=== PATIENT | female | born 1940 | race Caucasian/White ===

== ENCOUNTER 2018-09-14 18:14 | Inpatient (IN) | payer MEDICARE ==
[2018-09-14] MEDS ORDERED: SODIUM CHLORIDE 0.9% 2,000 ML IV STA (19:26)
[2018-09-14] MEDS ORDERED: SODIUM CHLORIDE 0.9% 1,000 ML IV STA (19:27)
--- NOTE | 2018-09-14 19:35 | ED ---
General Adult HPI - General Chief complaint: Skin/Abscess/Foreign Body Stated complaint: rash on arms & legs/cancer patient Time Seen by Provider: 09/14/18 18:47 Source: patient, RN notes reviewed Mode of arrival: wheelchair Limitations: no limitations - History of Present Illness Initial comments: 78-year-old female with a history of lung cancer currently treated with chemo and radiation and type 2 IDDM presents to the emergency department for a chief complaint of rash 2 weeks. Patient states this rash started 2 weeks ago on the left arm after receiving chemo. Patient states since then the rash has continued to spread. Patient states that 2 different oncologists have said it was the chemo or the radiation that may have caused the rash. Patient states she has also seen a regional operations manager last week who did a biopsy of the rash. She does not have the results of the biopsy yet but does have an appointment in 3 days. Patient states she has otherwise been feeling normal. Patient states that over the past few days the rash has begun to spread and is now on bilateral arms and legs. Patient states the rash is not pruritic and denies it being painful. Patient denies any recent travel. Patient denies any fevers or chills. Patient has no other complaints at this time including shortness of breath, chest pain, abdominal pain, nausea or vomiting, headache, or visual changes. - Related Data Home Medications Medication Instructions Recorded Confirmed [id number] 1 tab PO DAILY PRN 09/14/18 09/14/18 [Excedrin] INSULIN LISPRO (HumaLOG) [HumaLOG] 36 unit SQ DAILY 09/14/18 09/14/18 Insulin Glargine [Lantus] 70 unit SQ BID 09/14/18 09/14/18 Mirabegron [Myrbetriq] 50 mg PO DAILY 09/14/18 09/14/18 Prochlorperazine [Compazine] 10 mg PO Q6H PRN 09/14/18 09/14/18 Vortioxetine Hydrobromide 20 mg PO DAILY 09/14/18 09/14/18 [Trintellix] buPROPion HCL [Wellbutrin SR] 200 mg PO BID 09/14/18 09/14/18 Allergies Allergy/AdvReac Type Severity Reaction Status Date / Time latex Allergy Unknown Verified 09/14/18 19:56 Review of Systems ROS Statement: Those systems with pertinent positive or pertinent negative responses have been documented in the HPI. ROS Other: All systems not noted in ROS Statement are negative. Past Medical History Past Medical History: Asthma, Cancer, Diabetes Mellitus Additional Past Medical History / Comment(s): lung cancer History of Any Multi-Drug Resistant Organisms: None Reported Past Surgical History: Hysterectomy Past Psychological History: Depression Smoking Status: Former smoker Past Alcohol Use History: None Reported Past Drug Use History: None Reported General Exam Limitations: no limitations General appearance: alert, in no apparent distress Head exam: Present: atraumatic, normocephalic, normal inspection Eye exam: Present: normal appearance, PERRL, EOMI. Absent: scleral icterus, conjunctival injection, periorbital swelling ENT exam: Present: normal exam, normal oropharynx, mucous membranes moist Neck exam: Present: normal inspection, full ROM. Absent: tenderness, meningismus, lymphadenopathy Respiratory exam: Present: normal lung sounds bilaterally. Absent: respiratory distress, wheezes, rales, rhonchi, stridor Cardiovascular Exam: Present: normal rhythm, tachycardia, normal heart sounds. Absent: systolic murmur, diastolic murmur, rubs, gallop, clicks Neurological exam: Present: alert, oriented X3, CN II-XII intact Psychiatric exam: Present: normal affect, normal mood Skin exam: Present: rash (Patient has erythematous nonblanching rash on the bilateral arms and legs consistent with possible vasculitis.) Course Vital Signs 09/14/18 09/14/18 09/14/18 18:20 19:53 20:47 Temperature 98.6 F Pulse Rate 117 H 119 H 126 H Respiratory 18 18 20 Rate Blood Pressure 112/49 89/68 82/63 O2 Sat by Pulse 95 97 95 Oximetry - Reevaluation(s) Reevaluation #1: 09/14/18 18:50: Discussed with patient and offered blood work for rash including platelet count which she refuses at this time. Dr. Lloyd also saw the patient at this time who recommended steroids as patient does not want blood work because she is getting blood work done tomorrow at chemo Reevaluation #2: 09/14/18 19:15 on recheck of vitals before discharge patient's vitals have not stabilized and blood pressure is 96/63 and heart rate is 123. Recommended. Take workup at this point. Patient initially refused and stated she would like to think about it. Patient eventually agreed to septic workup which was initiated when patient agreed at about 1930. EKG Findings - EKG Comments: EKG Findings:: Ventricular rate 121, KS interval 194, QRS duration 96, sinus tachycardia, Dr Mir also evaluated EKG Medical Decision Making - Medical Decision Making 78-year-old female with a history of lung cancer currently being treated with chemo and radiation presents to the emergency department for a chief complaint of rash 2 weeks. Patient states this started after chemo and has worsened and spread. Rash is erythematous and nonblanching on bilateral arms and legs. Rash is consistent with vasculitis. She initially refused blood work and wanted to leave the emergency department as she was supposed to be having blood work outpatient tomorrow. However throughout patient's stay patient was becoming increasingly hypotensive and tachycardic. Therefore a septic workup was recommended and eventually patient did agree. Patient was given a liter of fluids. CBC showed a white count of 3.6 which is likely chronic due to patient' s chemotherapy. Platelets 224. CMP was unremarkable. Chest x-ray did not show any evidence of infection but did show patient's known lung mass. Patient refused to give a urine sample in the emergency department. She could not urinate and refused to have catheterization done. Therefore patient will be started on Rocephin empirically. She will be admitted to the hospital for further evaluation and monitoring. Sed rate was ordered and patient was given prednisone to cover for a vasculitis. Before admission patient's blood pressure did improve somewhat and she is currently stable. Discussed case with Dr. lloyd. - Lab Data Result diagrams: 09/14/18 19:50 09/14/18 19:50 Lab Results 09/14/18 09/14/18 09/14/18 Range/Units 19:50 19:50 19:50 WBC 3.6 L (3.8-10.6) k/uL RBC 4.25 (3.80-5.40) m/uL Hgb 12.8 (11.4-16.0) gm/dL Hct 37.6 (34.0-46.0) % MCV 88.4 (80.0-100.0) fL MCH 30.0 (25.0-35.0) pg MCHC 34.0 (31.0-37.0) g/dL RDW 19.0 H (11.5-15.5) % Plt Count 224 (150-450) k/uL Neutrophils % 63 % Lymphocytes % 29 % Monocytes % 3 % Eosinophils % 1 % Basophils % 1 % Neutrophils # 2.3 (1.3-7.7) k/uL Lymphocytes # 1.1 (1.0-4.8) k/uL Monocytes # 0.1 (0-1.0) k/uL Eosinophils # 0.1 (0-0.7) k/uL Basophils # 0.0 (0-0.2) k/uL Anisocytosis Slight PT (9.0-12.0) sec INR (<1.2) APTT (22.0-30.0) sec Sodium 137 (137-145) mmol/L Potassium 4.8 (3.5-5.1) mmol/L Chloride 104 (98-107) mmol/L Carbon Dioxide 25 (22-30) mmol/L Anion Gap 8 mmol/L BUN 39 H (7-17) mg/dL Creatinine 0.76 (0.52-1.04) mg/dL Est GFR (CKD-EPI)AfAm 89 (>60 ml/min/1.73 sqM) Est GFR (CKD-EPI)NonAf 77 (>60 ml/min/1.73 sqM) Glucose 181 H (74-99) mg/dL Plasma Lactic Acid Zane 1.6 (0.7-2.0) mmol/L Calcium 10.4 H (8.4-10.2) mg/dL Total Bilirubin 0.7 (0.2-1.3) mg/dL AST 25 (14-36) U/L ALT 29 (9-52) U/L Alkaline Phosphatase 43 (38-126) U/L Total Protein 6.6 (6.3-8.2) g/dL Albumin 3.7 (3.5-5.0) g/dL 09/14/18 Range/Units 19:50 WBC (3.8-10.6) k/uL RBC (3.80-5.40) m/uL Hgb (11.4-16.0) gm/dL Hct (34.0-46.0) % MCV (80.0-100.0) fL MCH (25.0-35.0) pg MCHC (31.0-37.0) g/dL RDW (11.5-15.5) % Plt Count (150-450) k/uL Neutrophils % % Lymphocytes % % Monocytes % % Eosinophils % % Basophils % % Neutrophils # (1.3-7.7) k/uL Lymphocytes # (1.0-4.8) k/uL Monocytes # (0-1.0) k/uL Eosinophils # (0-0.7) k/uL Basophils # (0-0.2) k/uL Anisocytosis PT 9.8 (9.0-12.0) sec INR 1.0 (<1.2) APTT 18.6 L (22.0-30.0) sec Sodium (137-145) mmol/L Potassium (3.5-5.1) mmol/L Chloride (98-107) mmol/L Carbon Dioxide (22-30) mmol/L Anion Gap mmol/L BUN (7-17) mg/dL Creatinine (0.52-1.04) mg/dL Est GFR (CKD-EPI)AfAm (>60 ml/min/1.73 sqM) Est GFR (CKD-EPI)NonAf (>60 ml/min/1.73 sqM) Glucose (74-99) mg/dL Plasma Lactic Acid Zane (0.7-2.0) mmol/L Calcium (8.4-10.2) mg/dL Total Bilirubin (0.2-1.3) mg/dL AST (14-36) U/L ALT (9-52) U/L Alkaline Phosphatase (38-126) U/L Total Protein (6.3-8.2) g/dL Albumin (3.5-5.0) g/dL Disposition Clinical Impression: Hypotension, Tachycardia, Rash Disposition: ADMITTED IP TO THIS HOSP Referrals: Jose Balderas MD [Primary Care Provider] - 1-2 days
[2018-09-14 20:06] LABS: Anisocytosis Slight; Basophils % (A) 1 %; Eosinophils # (A) 0.1 k/uL (0-0.7); Eosinophils % (A) 1 %; HCT 37.6 % (34.0-46.0); HGB 12.8 gm/dL (11.4-16.0); Lymphocytes # (A) 1.1 k/uL (1.0-4.8); Lymphocytes % (A) 29 %; MCV 88.4 fL (80.0-100.0); Mean Platelet Volume 7.4; Monocytes # (A) 0.1 k/uL (0-1.0); Monocytes % (A) 3 %; Neutrophils # (A) 2.3 k/uL (1.3-7.7); Neutrophils % (A) 63 %; Platelet Count 224 k/uL (150-450); RBC 4.25 m/uL (3.80-5.40); WBC 3.6 k/uL (3.8-10.6)
[2018-09-14 20:22] LABS: Albumin 3.7 g/dL (3.5-5.0); Calcium 10.4 mg/dL (8.4-10.2); Potassium 4.8 mmol/L (3.5-5.1); Prothrombin Time 9.8 sec (9.0-12.0); Total Bilirubin 0.7 mg/dL (0.2-1.3); Total Protein 6.6 g/dL (6.3-8.2)
[2018-09-14 20:52] LABS: Partial Thromboplastin Time 18.6 sec (22.0-30.0)
--- NOTE | 2018-09-14 21:09 | XR ---
EXAMINATION: XR chest 2V DATE AND TIME: 09/14/2018 8:09 PM CLINICAL INDICATION: Fever TECHNIQUE: PA and lateral COMPARISON: None. FINDINGS: There is a 5 cm right perihilar soft tissue mass suspicious for bronchogenic carcinoma. No evidence of pulmonary edema or definite pneumonia on these views. Pleural spaces are negative. Mildly enlarged cardiac silhouette noted. No definite acute bone or soft tissue findings. IMPRESSION: 5 CM RIGHT PERIHILAR SOFT TISSUE MASS CONCERNING FOR BRONCHOGENIC CARCINOMA; WOULD ADVISE CT CHEST W CONTRAST TO FURTHER CHARACTERIZE. The abnormal results were communicated with ordering provider.
[2018-09-14] MEDS ORDERED: NALOXONE 0.4 MG/ML 1 ML VIAL IV PRN (21:34)
[2018-09-14] MEDS ORDERED: predniSONE 20 MG TAB PO STA (21:38)
[2018-09-14] MEDS: SODIUM CHLORIDE 0.9% 1,000 ML IV SCH (22:09)
--- NOTE | 2018-09-15 00:44 | P.HPIM ---
History of Present Illness H&P Date: 09/14/18 Chief Complaint: Diffuse erythema rash 78-year-old female with history of lung cancer currently on chemo and radiation therapy. Patient noticed over the past 2 weeks and interruption of erythematous rash over her upper left extremity however with time started to become more diffuse she seek medical attention with both the radiologist and oncologist who referred her to dermatology who performed a skin biopsy awaiting results. H and denies any tenderness or pruritus over this rash however she grew concerned as over the past couple days it became more diffuse involving almost all over her body mainly over the upper and lower extremities. Denies any fevers or chills denies any nausea vomiting denies any pain denies any GI bleeding denies any similar rash in the past she reports that she has been on the same chemotherapy for the past 8 weeks, however recently Compazine was added. While patient in the ED she became hypotensive and tachycardic for which she was admitted under observation for further monitoring and supportive care Review of Systems Pertinent positives as noted in HPI. All other systems were reviewed and are negative Past Medical History Past Medical History: Asthma, Cancer, Diabetes Mellitus Additional Past Medical History / Comment(s): lung cancer History of Any Multi-Drug Resistant Organisms: None Reported Past Surgical History: Hysterectomy Past Psychological History: Depression Smoking Status: Former smoker Past Alcohol Use History: None Reported Past Drug Use History: None Reported Medications and Allergies Home Medications Medication Instructions Recorded Confirmed Type [id number] 1 tab PO DAILY PRN 09/14/18 09/14/18 History [Excedrin] INSULIN LISPRO (HumaLOG) [HumaLOG] 36 unit SQ DAILY 09/14/18 09/14/18 History Insulin Glargine [Lantus] 70 unit SQ BID 09/14/18 09/14/18 History Mirabegron [Myrbetriq] 50 mg PO DAILY 09/14/18 09/14/18 History Prochlorperazine [Compazine] 10 mg PO Q6H PRN 09/14/18 09/14/18 History Vortioxetine Hydrobromide 20 mg PO DAILY 09/14/18 09/14/18 History [Trintellix] buPROPion HCL [Wellbutrin SR] 200 mg PO BID 09/14/18 09/14/18 History Allergies Allergy/AdvReac Type Severity Reaction Status Date / Time latex Allergy Unknown Verified 09/14/18 19:56 Physical Exam Vitals: Vital Signs Temp Pulse Resp BP Pulse Ox 09/14/18 22:52 98.3 F 121 H 18 125/64 95 09/14/18 21:37 113 H 18 118/73 95 09/14/18 20:47 126 H 20 82/63 95 09/14/18 19:53 119 H 18 89/68 97 09/14/18 18:20 98.6 F 117 H 18 112/49 95 Intake and Output 09/14/18 09/14/18 09/14/18 06:59 14:59 22:59 Other: Weight 100.698 kg Constitutional: No acute distress, conversant, pleasant, well developed Eyes: Anicteric sclerae, moist conjunctiva, no lid-lag Pupils equal round reactive to light ENMT: NC/AT Oropharynx clear, no erythema, exudates Neck: Supple, FROM, no masses, or JVD No carotid bruits No thyromegaly Lungs: Clear to auscultation Clear to percussion Normal respiratory effort, no accessory muscle use Cardiovascular: Heart regular in rate and rhythm, No murmurs, gallops, or rubs No peripheral edema Abdominal: Soft Nontender, no guarding, rebound or rigidity Abdomen moving with respiration Normoactive bowel sounds No hepatomegaly, No splenomegaly No palpable mass No abdominal wall hernia noted Skin: Diffuse petechial rash over upper and lower extremities with areas of erythematous macule over the hands nontender to palpation Normal temperature, tone, texture, turgor No induration No subcutaneous nodules No ulcers Extremities: No digital cyanosis No clubbing Pedal pulses intact and symmetrical Radial pulses intact and symmetrical No calf tenderness Psychiatric: Alert and oriented to person, place and time Appropriate affect fair judgment Neuro Muscles Strength 5/5 in all 4 extremities Sensation to light touch grossly present throughout Cranial nerves II-XII grossly intact No focal sensory deficits Lymphatics: no palpable cervical or supraclavicular , or inguinal lymph nodes Results CBC & Chem 7: 09/14/18 19:50 09/14/18 19:50 Labs: Abnormal Lab Results - Last 24 Hours (Table) 09/14/18 09/14/18 09/14/18 Range/Units 19:50 19:50 19:50 WBC 3.6 L (3.8-10.6) k/uL RDW 19.0 H (11.5-15.5) % ESR (0-20) mm/hr APTT 18.6 L (22.0-30.0) sec BUN 39 H (7-17) mg/dL Glucose 181 H (74-99) mg/dL Calcium 10.4 H (8.4-10.2) mg/dL 09/14/18 Range/Units 22:01 WBC (3.8-10.6) k/uL RDW (11.5-15.5) % ESR 25 H (0-20) mm/hr APTT (22.0-30.0) sec BUN (7-17) mg/dL Glucose (74-99) mg/dL Calcium (8.4-10.2) mg/dL Assessment and Plan Assessment: 78 year old female with history of lung cancer on chemo and radiation therapy , admitted under observation with anticipated length of stay <48 hours due to hypotension and tachycardia. patient presented due to diffuse rash over her upper and lower extremities of 2 weeks duration patient had biopsy performed as OP , and results expected in few days Plan: Diffuse upper and lower extremity rash secondary to Erythema multiforme versus vasculitis Symptomatic control Patient received steroids in the ER Patient had biopsy performed outpatient awaiting results Hypotension tachycardia, patient with history of hypertension Asymptomatic IV fluid hydration Monitor vital signs Hypercalcemia mild asymptomatic Continue to monitor most likely this is secondary to elevated PTH from lung cancer Diabetes mellitus continue with insulin DVT prophylaxis Lovenox Surrogate decision-maker: *Patient niece Winifred CODE STATUS: Full code Discussed with: Patient, ER, RN Anticipated discharge: <[address]: Home A total of 60 minutes was spent on the care of this complex patient more than 50% of the time was spent in counseling and care coordination.
[2018-09-15 03:00] VITALS: BMI 34.7
[2018-09-15 07:04] LABS: Glucose,Whole Blood 247 mg/dL (75-99)
[2018-09-15] MEDS: INSULIN ASPART 100 UNIT/ML 1 ML 10 ML VIAL SQ SCH ×4 (08:11→21:03)
[2018-09-15] MEDS: buPROPion SR 100 MG TABLET.ER PO SCH ×2 (10:48→21:03)
[2018-09-15] MEDS: INSULIN DETEMIR 100 UNIT/ML 10 ML VIAL SQ SCH ×3 (10:49→21:03)
[2018-09-15 11:36] LABS: Glucose,Whole Blood 307 mg/dL (75-99)
[2018-09-15] MEDS: Mirabegron [Myrbetriq] 50 MG PO SCH (11:42)
[2018-09-15] MEDS: SODIUM CHLORIDE 0.9% 1,000 ML IV SCH ×3 (12:45→17:55)
--- NOTE | 2018-09-15 13:24 | P.PN ---
Subjective Progress Note Date: 09/15/18 Principal diagnosis: Rash patient was seen and examined. No acute events overnight. Patient reports no changes in her rash. She denies any chest pain, dizziness, palpitations, shortness of breath. She did see a stretch machine operator in for depression last week for a biopsy of this rash. She denies any fever or chills. She gets her oncological care [place] [facility]. She has no dysuria. She has no other complaints this morning. Objective - Vital Signs Vital signs: Vital Signs Temp 97.9 F 09/15/18 12:07 Pulse 111 H 09/15/18 12:24 Resp 14 09/15/18 12:24 BP 104/67 09/15/18 12:07 Pulse Ox 97 09/15/18 12:07 Intake & Output 09/14/18 09/15/18 09/15/18 18:59 06:59 18:59 Intake Total 840 Output Total 900 Balance 840 -900 Weight 100.698 kg 100.698 kg Intake: Intake, IV Titration 600 Amount Sodium Chloride 0.9% 1, 600 000 ml @ 140 mls/hr IV . Q7H9M [facility] Rx#:[id number] Oral 240 Output: Urine 900 Other: Voiding Method Toilet - Exam General: [non toxic], [no distress], [appears at stated age] Derm: [warm], [dry] Head: [atraumatic], [normocephalic], [symmetric] Eyes: [EOMI], [no lid lag], [anicteric sclera] Mouth: [no lip lesion], [mucus membranes moist] Cardiovascular: [S1S2 reg], [no murmur], [positive posterior tibial pulse bilateral], Lungs: [CTA bilateral], [no rhonchi, no rales] , [no accessory muscle use] Abdominal: [soft], [ nontender to palpation], [no guarding], [no appreciable organomegaly] Ext: [no gross muscle atrophy], [no edema], [petechial rash over the bilateral upper extremities, lower extremities (though less) and macules over the bilateral hands] Neuro: [no focal neuro deficits] Psych: [Alert], [oriented], [appropriate affect] - Labs CBC & Chem 7: 09/14/18 19:50 09/14/18 19:50 Labs: Abnormal Lab Results - Last 24 Hours (Table) 09/14/18 09/14/18 09/14/18 Range/Units 19:50 19:50 19:50 WBC 3.6 L (3.8-10.6) k/uL RDW 19.0 H (11.5-15.5) % ESR (0-20) mm/hr APTT 18.6 L (22.0-30.0) sec BUN 39 H (7-17) mg/dL Glucose 181 H (74-99) mg/dL POC Glucose (mg/dL) (75-99) mg/dL Calcium 10.4 H (8.4-10.2) mg/dL 09/14/18 09/15/18 09/15/18 Range/Units 22:01 07:02 11:35 WBC (3.8-10.6) k/uL RDW (11.5-15.5) % ESR 25 H (0-20) mm/hr APTT (22.0-30.0) sec BUN (7-17) mg/dL Glucose (74-99) mg/dL POC Glucose (mg/dL) 247 H 307 H (75-99) mg/dL Calcium (8.4-10.2) mg/dL Assessment and Plan Assessment: Assessment and Plan 1. Rash: Erythema multiforme vs. vasculitis? Punch Bx done at [facility] dermatology clinic in [facility] last week. Patient is leukopenic (WBC 3.6) and remains afebrile. ESR 25 elevated. Will attempt to call [facility] today for pathology results (likely will not be back until next week). Local skin care. 2. Hypotension with tachycardia: Possibly due to dehydration? 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 CXR shows known bronchogenic CA. No source of infection so will hold off antibiotics. Continue NS at 140 cc/h. FU UA, UCx, BCx, Orthostatic vitals. 3. Prerenal azotemia: BUN 39 C within normal limits. Likely due to dehydration. Continue NS at 140 cc/h. Avoid nephrotoxins. Encourage PO hydration. Daily BMP. 4. Hypercalcemia: Mild, Ca 10.4. Likely 2/2 bronchogenic CA (PTHrp). Asymptomatic. Will continue to monitor. 5. Lung CA: Follows up at [facility]. Has 4 radiation and 1 chemotherapy session left per patient. FU outPT. 6. DM: POC glucose 307. Continue Levemir 70 units BID. ISS. Accuchecks. Hypoglycemic protocol. Low carbohydrate diet. 7. Depression: Continue Vortioxetine 20 mg PO QD, Bupropion 200 mg PO BID. 8. DVT/GI Prophylaxis: Lovenox 40 mg SUBCUT QD. Protonix 40 mg PO QD. Rashe is unchanged. Patient continues to be hypotensive and tachycardic without a source of infection. We are continuing to hydrate her with IV fluids. Will obtain orthostats, follow cultures.
[2018-09-15 14:29] LABS: Anisocytosis Moderate; Basophils % (A) 0 %; Eosinophils % (A) 0 %; Lymphocytes # (A) 0.7 k/uL (1.0-4.8); Lymphocytes % (A) 19 %; MCH 29.9 pg (25.0-35.0); MCHC 32.4 g/dL (31.0-37.0); MCV 92.3 fL (80.0-100.0); Macrocytosis Slight; Mean Platelet Volume 7.1; Monocytes # (A) 0.1 k/uL (0-1.0); Monocytes % (A) 3 %; Neutrophils # (A) 2.9 k/uL (1.3-7.7); Neutrophils % (A) 76 %; Platelet Count 207 k/uL (150-450); RBC 3.69 m/uL (3.80-5.40); WBC 3.8 k/uL (3.8-10.6)
[2018-09-15 14:34] LABS: Anion Gap 7 mmol/L; Blood Urea Nitrogen 25 mg/dL (7-17); Calcium 9.4 mg/dL (8.4-10.2); Carbon Dioxide 25 mmol/L (22-30); Chloride 105 mmol/L (98-107); Glucose 308 mg/dL (74-99); Potassium 4.8 mmol/L (3.5-5.1); Sodium 137 mmol/L (137-145)
[2018-09-15] MEDS ORDERED: VANCOMYCIN IV PER PHARMACY 1 EACH MISC MISCELLANE PRN (15:27)
[2018-09-15] MEDS ORDERED: VANCOMYCIN 1,750 MG in SODIUM CHLORIDE 0.9% 500 ML 500 ML IVPB ONE (16:00)
[2018-09-15] MEDS ORDERED: VANCOMYCIN 1,500 MG in SODIUM CHLORIDE 0.9% 250 ML IVPB ONE (16:00)
[2018-09-15] MEDS: CEFEPIME 2 GM in SODIUM CHLORIDE 0.9% 50 ML IVPB SCH ×2 (16:10→23:33)
[2018-09-15 16:47] LABS: Glucose,Whole Blood 191 mg/dL (75-99)
[2018-09-15 17:49] LABS: Appearance,Urine Clear (Clear); Bilirubin,Urine Negative (Negative); Blood,Urine Negative (Negative); Color,Urine Yellow; Glucose,Urine (UA) 4+ (Negative); Ketones,Urine Negative (Negative); Leukocyte Esterase,Urine Negative (Negative); Nitrite,Urine Negative (Negative); Protein,Urine Negative (Negative); Specific Gravity,Urine 1.025 (1.001-1.035); Urobilinogen,Urine <2.0 mg/dL (<2.0)
[2018-09-15 20:51] LABS: Glucose,Whole Blood 243 mg/dL (75-99)
--- NOTE | 2018-09-15 23:10 | P.CONS ---
History of Present Illness - Reason for Consult Consult date: 09/15/18 Positive blood culture/infection Requesting physician: Raúl Boo - Chief Complaint Generalized rash 2 weeks - History of Present Illness Patient is a 78 year female with a past medical history significant for bronchogenic carcinoma for which the patient currently on chemo and radiation therapy for the last 7 weeks patient said that over the last 2 weeks she has developed a rash initially on her upper arm, however subsequently developing a rash on the lower extremity as well as trunk the patient complains the rash to be itching mild to moderate in intensity no significant surrounding swelling or redness except on the hand with the patient has been scratching patient denies having any lesion in the mouth and no difficulty currently breathing or swallowing patient has been sent to dermatology with the patient did have a biopsy done however results are pending, besides the chemo the only other medication due to the patient has been Compazine for nausea and Prilosec for reflux with worsening of rash the patient represented to the [facility] ER with the patient has been evaluated with the physician she was noticed to be hypotensive with a blood pressure in 80s systolic subsequently the patient was admitted hospital for stabilization she did have blood cultures obtained one of them becoming be positive with gram-positive cocci that prompted his infectious disease consultation, the patient is currently afebrile the patient denies significant URI symptoms denies having any chest pain or shortness of breath she did have very minimal cough and not bringing up any sputum the patient denies having abdominal pain no nausea no vomiting and no diarrhea Review of Systems CONSTITUTIONAL: Positive for weakness. Denies high-grade Fever EYES: No complaint. ENT:No complaint. RESPIRATORY: Occasional cough. CARDIOVASCULAR: No complaint. GENITOURINARY: No complaint. GASTROINTESTINAL: No complaint. MUSCULOSKELETAL: No complaint. INTEGUMENTARY: As per HPI PSYCHOLOGICAL: No complaint. ENDOCRINE: No complaint. NEUROLOGIC: No complaint. Past Medical History Past Medical History: Asthma, Cancer, Diabetes Mellitus Additional Past Medical History / Comment(s): lung cancer History of Any Multi-Drug Resistant Organisms: None Reported Past Surgical History: Hysterectomy Past Psychological History: Depression Smoking Status: Former smoker Past Alcohol Use History: None Reported Past Drug Use History: None Reported - Past Family History Mother Family Medical History: Hypertension Medications and Allergies Home Medications Medication Instructions Recorded Confirmed Type [id number] 1 tab PO DAILY PRN 10/23/18 10/23/18 History [Excedrin] INSULIN LISPRO (HumaLOG) [HumaLOG] 36 unit SQ DAILY 09/14/18 09/14/18 History Insulin Glargine [Lantus] 70 unit SQ BID 09/14/18 09/14/18 History Mirabegron [Myrbetriq] 50 mg PO DAILY 09/14/18 09/14/18 History Prochlorperazine [Compazine] 10 mg PO Q6H PRN 09/14/18 09/14/18 History Vortioxetine Hydrobromide 20 mg PO DAILY 09/14/18 09/14/18 History [Trintellix] buPROPion HCL [Wellbutrin SR] 200 mg PO BID 09/14/18 09/14/18 History Allergies Allergy/AdvReac Type Severity Reaction Status Date / Time latex Allergy Unknown Verified 09/14/18 19:56 Physical Exam Vitals: Vital Signs Temp Pulse Pulse Resp BP BP Pulse Ox 09/15/18 15:30 114 H 09/15/18 15:10 122 H 09/15/18 15:05 114 H 09/15/18 15:00 109 H 09/15/18 12:24 111 H 14 09/15/18 12:07 97.9 F 111 H 14 104/67 97 09/15/18 08:00 113 H 09/15/18 05:47 97.5 F L 113 H 16 121/61 95 09/14/18 23:20 113 H 17 09/14/18 23:00 98.9 F 120 H 17 81/59 97 09/14/18 22:52 98.3 F 121 H 18 125/64 95 09/14/18 21:37 113 H 18 118/73 95 09/14/18 20:47 126 H 20 82/63 95 09/14/18 19:53 119 H 18 89/68 97 09/14/18 18:20 98.6 F 117 H 18 112/49 95 Intake and Output 09/15/18 09/15/18 09/15/18 06:59 14:59 22:59 Intake Total 840 1120 Output Total 900 Balance 840 220 Intake: Intake, IV Titration 600 1120 Amount Sodium Chloride 0.9% 1, 600 1120 000 ml @ 140 mls/hr IV . Q7H9M [facility] Rx#:[id number] Oral 240 Output: Urine 900 Other: Voiding Method Toilet Weight 100.698 kg GENERAL DESCRIPTION: Elderly female up in bed, no distress. No tachypnea or accessory muscle of respiration use. HEENT: Shows Pallor , no scleral icterus. Oral mucous membrane is dry. No pharyngeal erythema or thrush NECK: Trachea central, no thyromegaly. LUNGS: Unlabored breathing. Decreased intensity of breath sounds. No wheeze or crackle. HEART: S1, S2, regular rate and rhythm. No loud murmur ABDOMEN: Soft, no tenderness , guarding or rigidity, no organomegaly EXTREMITIES: No edema of feet. SKIN: Generalized maculopapular rash, no masses palpable. NEUROLOGICAL: The patient is awake, alert, oriented x3, mood and affect normal. Results CBC & Chem 7: 09/15/18 13:57 09/15/18 13:57 Labs: Abnormal Lab Results - Last 24 Hours (Table) 09/14/18 09/14/18 09/14/18 Range/Units 19:50 19:50 19:50 WBC 3.6 L (3.8-10.6) k/uL RBC (3.80-5.40) m/uL Hgb (11.4-16.0) gm/dL RDW 19.0 H (11.5-15.5) % Lymphocytes # (1.0-4.8) k/uL ESR (0-20) mm/hr APTT 18.6 L (22.0-30.0) sec BUN 39 H (7-17) mg/dL Glucose 181 H (74-99) mg/dL POC Glucose (mg/dL) (75-99) mg/dL Calcium 10.4 H (8.4-10.2) mg/dL 09/14/18 09/15/18 09/15/18 Range/Units 22:01 07:02 11:35 WBC (3.8-10.6) k/uL RBC (3.80-5.40) m/uL Hgb (11.4-16.0) gm/dL RDW (11.5-15.5) % Lymphocytes # (1.0-4.8) k/uL ESR 25 H (0-20) mm/hr APTT (22.0-30.0) sec BUN (7-17) mg/dL Glucose (74-99) mg/dL POC Glucose (mg/dL) 247 H 307 H (75-99) mg/dL Calcium (8.4-10.2) mg/dL 09/15/18 09/15/18 Range/Units 13:57 13:57 WBC (3.8-10.6) k/uL RBC 3.69 L (3.80-5.40) m/uL Hgb 11.0 L (11.4-16.0) gm/dL RDW 20.0 H (11.5-15.5) % Lymphocytes # 0.7 L (1.0-4.8) k/uL ESR (0-20) mm/hr APTT (22.0-30.0) sec BUN 25 H (7-17) mg/dL Glucose 308 H (74-99) mg/dL POC Glucose (mg/dL) (75-99) mg/dL Calcium (8.4-10.2) mg/dL Microbiology - Last 24 Hours (Table) 09/14/18 22:01 Blood Culture Gram Stain - Preliminary Blood 09/14/18 22:01 Blood Culture - Final Blood Assessment and Plan (1) Gram-positive cocci bacteremia Current Visit: Yes Status: Acute Code(s): R78.81 - BACTEREMIA SNOMED Code( s): 389809620027 (2) Rash Current Visit: Yes Status: Acute Code(s): R21 - RASH AND OTHER NONSPECIFIC SKIN ERUPTION SNOMED Code(s): 655614838 Plan: 1- patient with generalized maculopapular rash more likely drug effect with the offending showed questionable chemo versus Compazine and the Prilosec that has been new to the patient patient is status post biopsy of them and to try to obtain the results from [facility] dermatology, currently recommend local and symptomatic treatment only 2- patient with gram-positive bacteremia source questionable pulmonary however the patient is not behaving as pneumonia could be more likely a skin contamination at the time of obtaining these blood culture 3-blood culture has been dictated to document clearance of bacteremia and to rule out contamination 4- vancomycin pharmacy to dose target trough of 15 on watching her kidney function and Vanco trough closely all waiting for the final ID on this gram- positive pathogen He will follow on her clinical condition and culture to further adjust medication if needed Time with Patient: Greater than 30
[2018-09-16] MEDS: VANCOMYCIN 1,750 MG in SODIUM CHLORIDE 0.9% 500 ML 500 ML IVPB SCH ×2 (00:45→14:26)
[2018-09-16] MEDS: SODIUM CHLORIDE 0.9% 1,000 ML IV SCH ×4 (04:00→23:30)
[2018-09-16 06:51] LABS: Glucose,Whole Blood 71 mg/dL (75-99)
[2018-09-16] MEDS: INSULIN ASPART 100 UNIT/ML 1 ML 10 ML VIAL SQ SCH ×4 (07:20→21:11)
[2018-09-16] MEDS: PANTOPRAZOLE 40 MG TABLET PO SCH (08:11)
[2018-09-16] MEDS: CEFEPIME 2 GM in SODIUM CHLORIDE 0.9% 50 ML IVPB SCH ×2 (08:12→17:32)
[2018-09-16] MEDS: buPROPion SR 100 MG TABLET.ER PO SCH ×2 (08:13→21:12)
[2018-09-16] MEDS: ENOXAPARIN 40 MG/0.4 ML SYRINGE SQ SCH (08:14)
[2018-09-16] MEDS: INSULIN DETEMIR 100 UNIT/ML 10 ML VIAL SQ SCH ×2 (08:16→21:24)
[2018-09-16] MEDS: Mirabegron [Myrbetriq] 50 MG PO SCH (08:33)
[2018-09-16 08:59] LABS: Anisocytosis Moderate; Basophils % (A) 0 %; Eosinophils % (A) 1 %; HCT 34.6 % (34.0-46.0); HGB 11.5 gm/dL (11.4-16.0); Lymphocytes # (A) 0.8 k/uL (1.0-4.8); Lymphocytes % (A) 25 %; MCH 30.1 pg (25.0-35.0); MCHC 33.4 g/dL (31.0-37.0); MCV 90.1 fL (80.0-100.0); Macrocytosis Slight; Monocytes # (A) 0.2 k/uL (0-1.0); Monocytes % (A) 6 %; Neutrophils # (A) 2.1 k/uL (1.3-7.7); Neutrophils % (A) 65 %; Platelet Count 214 k/uL (150-450); RBC 3.84 m/uL (3.80-5.40); RDW 20.4 % (11.5-15.5); WBC 3.2 k/uL (3.8-10.6)
[2018-09-16 09:27] LABS: ALT 28 U/L (9-52); AST 24 U/L (14-36); Albumin 3.1 g/dL (3.5-5.0); Alkaline Phosphatase 36 U/L (38-126); Anion Gap 10 mmol/L; Blood Urea Nitrogen 17 mg/dL (7-17); Calcium 9.3 mg/dL (8.4-10.2); Carbon Dioxide 22 mmol/L (22-30); Chloride 110 mmol/L (98-107); Glucose 120 mg/dL (74-99); Potassium 3.8 mmol/L (3.5-5.1); Sodium 142 mmol/L (137-145); Total Bilirubin 0.4 mg/dL (0.2-1.3); Total Protein 5.8 g/dL (6.3-8.2)
[2018-09-16 11:34] LABS: Glucose,Whole Blood 155 mg/dL (75-99)
--- NOTE | 2018-09-16 14:12 | P.PN ---
Subjective Progress Note Date: 09/16/18 Principal diagnosis: Rash, hypotension and tachycardia Patient was seen and examined. No acute events overnight. No changes in her rash. She has no other complaints at this time. She denies any fever, chills, cough, chest pain, shortness of breath, palpitations, changes in urination or bowel habits. Objective - Vital Signs Vital signs: Vital Signs Temp 97.1 F L 09/16/18 12:25 Pulse 100 09/16/18 12:25 Resp 14 09/16/18 12:25 BP 108/59 09/16/18 12:25 Pulse Ox 96 09/16/18 12:25 Intake & Output 09/15/18 09/16/18 09/16/18 18:59 06:59 18:59 Intake Total 1120 1540 Output Total 900 Balance 220 1540 Intake: Intake, IV Titration 1120 1540 Amount Sodium Chloride 0.9% 1, 1120 1540 000 ml @ 140 mls/hr IV . Q7H9M [facility] Rx#:[id number] Output: Urine 900 Other: Voiding Method Toilet Toilet Toilet # Voids 1 1 - Exam General: [non toxic], [no distress], [appears at stated age] Derm: [warm], [dry] Head: [atraumatic], [normocephalic], [symmetric] Eyes: [EOMI], [no lid lag], [anicteric sclera] Mouth: [no lip lesion], [mucus membranes moist] Cardiovascular: [S1S2 reg], [no murmur], [positive posterior tibial pulse bilateral], Lungs: [CTA bilateral], [no rhonchi, no rales] , [no accessory muscle use] Abdominal: [soft], [ nontender to palpation], [no guarding], [no appreciable organomegaly] Ext: [no gross muscle atrophy], [no edema], [petechial rash over the bilateral upper extremities, lower extremities (though less) and macules over the bilateral hands] Neuro: [no focal neuro deficits] Psych: [Alert], [oriented], [appropriate affect] - Labs CBC & Chem 7: 09/16/18 08:28 09/16/18 08:28 Labs: Abnormal Lab Results - Last 24 Hours (Table) 1009/15/18 09/15/18 Range/Units 13:57 13:57 16:15 WBC (3.8-10.6) k/uL RBC 3.69 L (3.80-5.40) m/uL Hgb 11.0 L (11.4-16.0) gm/dL RDW 20.0 H (11.5-15.5) % Lymphocytes # 0.7 L (1.0-4.8) k/uL Chloride (98-107) mmol/L BUN 25 H (7-17) mg/dL Glucose 308 H (74-99) mg/dL POC Glucose (mg/dL) (75-99) mg/dL Alkaline Phosphatase (38-126) U/L Total Protein (6.3-8.2) g/dL Albumin (3.5-5.0) g/dL Urine Glucose (UA) 4+ H (Negative) 09/15/18 09/15/18 09/16/18 Range/Units 16:46 20:50 06:49 WBC (3.8-10.6) k/uL RBC (3.80-5.40) m/uL Hgb (11.4-16.0) gm/dL RDW (11.5-15.5) % Lymphocytes # (1.0-4.8) k/uL Chloride (98-107) mmol/L BUN (7-17) mg/dL Glucose (74-99) mg/dL POC Glucose (mg/dL) 191 H 243 H 71 L (75-99) mg/dL Alkaline Phosphatase (38-126) U/L Total Protein (6.3-8.2) g/dL Albumin (3.5-5.0) g/dL Urine Glucose (UA) (Negative) 09/16/18 09/16/18 09/16/18 Range/Units 08:28 08:28 11:33 WBC 3.2 L (3.8-10.6) k/uL RBC (3.80-5.40) m/uL Hgb (11.4-16.0) gm/dL RDW 20.4 H (11.5-15.5) % Lymphocytes # 0.8 L (1.0-4.8) k/uL Chloride 110 H (98-107) mmol/L BUN (7-17) mg/dL Glucose 120 H (74-99) mg/dL POC Glucose (mg/dL) 155 H (75-99) mg/dL Alkaline Phosphatase 36 L (38-126) U/L Total Protein 5.8 L (6.3-8.2) g/dL Albumin 3.1 L (3.5-5.0) g/dL Urine Glucose (UA) (Negative) Microbiology - Last 24 Hours (Table) 09/14/18 22:01 Blood Culture Gram Stain - Preliminary Blood Blood Culture - Preliminary Alpha Hemolytic Streptococcus 09/15/18 16:15 Urine Culture - Preliminary Urine,Clean Catch 09/14/18 19:50 Blood Culture - Preliminary Blood No Growth after 24 hours 09/14/18 22:01 Blood Culture - Final Blood Assessment and Plan Assessment: Assessment and Plan 1. Rash: Erythema multiforme vs. vasculitis? Punch Bx done at [facility] dermatology clinic in [facility] last week. Patient is leukopenic (WBC 3.2) and remains afebrile. ESR 25 elevated. Biopsy taken on , results to take 7- 10 days. Local skin care. 2. Sepsis: Hypotension possibly due to dehydration? 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 CXR shows known bronchogenic CA. UA is negative for UTI. Patient is afebrile with no leukocytosis (unreliable because she is immunocompromised). BCx + for alpha hemolytic Strep. Started Vancomycin 1750 mg IV per levels, Cefetime 2g IV TID. Lactic acid normal. Continue NS at 140 cc/h. FU BCx (final), and repeat BCx taken yesterday. FU ID consult 3. Lung CA: Follows up at [facility]. Has 4 radiation and 1 chemotherapy session left per patient. FU outPT. 4. DM: POC glucose 155. Continue Levemir 70 units BID. ISS. Accuchecks. Hypoglycemic protocol. Low carbohydrate diet. 5. Depression: Continue Vortioxetine 20 mg PO QD, Bupropion 200 mg PO BID. 6. DVT/GI Prophylaxis: Lovenox 40 mg SUBCUT QD. Protonix 40 mg PO QD. Hypercalcemia and Prerenal azotemia has resolved. Rash is unchanged. Patient meets criteria for sepsis, BCx + for group A strep. Unknown source, possible contaminant. Broad spectrum IV Abx until organism identified.
--- NOTE | 2018-09-16 14:27 | PN ---
PROGRESS NOTE DATE OF SERVICE: 09/16/2018 REASON FOR FOLLOWUP: 1. Drug rash. 2. Bacteremia. INTERVAL HISTORY: The patient is currently afebrile. She is breathing comfortably. Denies significant chest pain or shortness of breath. Very minimal cough, not bringing up any sputum. No abdominal pain. No nausea, no vomiting. No diarrhea. The rash has decreased in intensity. No fever has been noticed. PHYSICAL EXAMINATION: Blood pressure 108/59 with a pulse of 100, temperature 97.1, she is 96% on room air. General description is an elderly female, up in the room in no distress. RESPIRATORY SYSTEM: Unlabored breathing with decreased breath sounds within the bases, no wheeze. HEART: S1, S2. Regular rate and rhythm. ABDOMEN: Soft, no tenderness. LABS: Hemoglobin is 11.5, white count of 3.2, BUN of 17, creatinine 0.54. Blood culture finalized with alpha hemolytic Streptococcus. DIAGNOSTIC IMPRESSION AND PLAN: 1. Patient with rash, more likely related to drugs with finding drug currently not clear. Waiting for the biopsy from the Rheumatology. 2. Patient with a positive blood culture with alpha hemolytic Streptococcus in this patient who did have underlying lung cancer, but no symptoms to be suspicious for pneumonia and no other clinical focus of infection. We are waiting for the blood cultures that was done before the antibiotic was started to determine the significance of the blood culture or any further workup. We will keep the patient on cefepime. However, discontinue the vancomycin and re-evaluate the patient tomorrow. Continue supportive care. MMODL / IJN: [id number] /
[2018-09-16 16:54] LABS: Glucose,Whole Blood 231 mg/dL (75-99)
[2018-09-16 21:12] LABS: Glucose,Whole Blood 127 mg/dL (75-99)
[2018-09-17] MEDS: CEFEPIME 2 GM in SODIUM CHLORIDE 0.9% 50 ML IVPB SCH ×3 (00:12→18:06)
[2018-09-17 03:08] LABS: Glucose,Whole Blood 97 mg/dL (75-99)
[2018-09-17 06:56] LABS: Glucose,Whole Blood 99 mg/dL (75-99)
[2018-09-17] MEDS: INSULIN ASPART 100 UNIT/ML 1 ML 10 ML VIAL SQ SCH ×4 (07:35→22:32)
[2018-09-17] MEDS: ENOXAPARIN 40 MG/0.4 ML SYRINGE SQ SCH (07:38)
[2018-09-17] MEDS: PANTOPRAZOLE 40 MG TABLET PO SCH (07:39)
[2018-09-17] MEDS: Mirabegron [Myrbetriq] 50 MG PO SCH (07:40)
[2018-09-17] MEDS: buPROPion SR 100 MG TABLET.ER PO SCH ×2 (07:40→22:31)
[2018-09-17] MEDS: SODIUM CHLORIDE 0.9% 1,000 ML IV SCH ×3 (07:41→22:31)
[2018-09-17] MEDS: INSULIN DETEMIR 100 UNIT/ML 10 ML VIAL SQ SCH ×2 (07:55→22:32)
[2018-09-17 11:10] LABS: Glucose,Whole Blood 212 mg/dL (75-99)
--- NOTE | 2018-09-17 13:53 | P.PN ---
Subjective Progress Note Date: 09/17/18 Principal diagnosis: Hypotension, rash Patient was seen and examined. No acute events overnight. Patient states she choked on a carrot, was able to swallow it. She complains of nasal congestion and runny nose with frontal headache. No fever or chills. Blood culture grew out alphahemolytic strep, identification and sensitivities pending. Objective - Vital Signs Vital signs: Vital Signs Temp 97.3 F L 09/17/18 12:26 Pulse 107 H 09/17/18 12:26 Resp 16 09/17/18 12:26 BP 133/70 09/17/18 12:26 Pulse Ox 95 09/17/18 12:26 Intake & Output 09/16/18 09/17/18 09/17/18 18:59 06:59 18:59 Intake Total 1030 Output Total 900 Balance 130 Intake: Intake, IV Titration 1030 Amount Cefepime 2 gm In Sodium 50 Chloride 0.9% 50 ml @ 100 mls/hr IVPB Q8HR [facility] Rx# :[id number] Sodium Chloride 0.9% 1, 980 000 ml @ 140 mls/hr IV . Q7H9M [facility] Rx#:[id number] Output: Urine 900 Other: Voiding Method Toilet Toilet Toilet # Voids 1 3 - Exam General: [non toxic], [no distress], [appears at stated age] Derm: [warm], [dry] Head: [atraumatic], [normocephalic], [symmetric] Eyes: [EOMI], [no lid lag], [anicteric sclera] Mouth: [no lip lesion], [mucus membranes moist] Cardiovascular: [S1S2 reg], [no murmur], [positive posterior tibial pulse bilateral], Lungs: [CTA bilateral], [no rhonchi, no rales] , [no accessory muscle use] Abdominal: [soft], [ nontender to palpation], [no guarding], [no appreciable organomegaly] Ext: [no gross muscle atrophy], [no edema], [petechial rash over the bilateral upper extremities, lower extremities (though less) and macules over the bilateral hands - slightly improved] Neuro: [no focal neuro deficits] Psych: [Alert], [oriented], [appropriate affect] - Labs CBC & Chem 7: 09/16/18 08:28 09/16/18 08:28 Labs: Abnormal Lab Results - Last 24 Hours (Table) 09/16/18 09/16/18 09/17/18 Range/Units 16:50 21:10 11:09 POC Glucose (mg/dL) 231 H 127 H 212 H (75-99) mg/dL Microbiology - Last 24 Hours (Table) 09/15/18 16:15 Urine Culture - Final Urine,Clean Catch 09/14/18 19:50 Blood Culture - Preliminary Blood No Growth after 48 hours 09/15/18 15:51 Blood Culture - Preliminary Blood No Growth after 24 hours 09/14/18 22:01 Blood Culture Gram Stain - Preliminary Blood Blood Culture - Preliminary Alpha Hemolytic Streptococcus Assessment and Plan Assessment: Assessment and Plan 1. Sepsis: Hypotension possibly due to dehydration? 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 CXR shows known bronchogenic CA. UA is negative for UTI. Patient is afebrile with no leukocytosis (unreliable because she is immunocompromised). BCx + for alpha hemolytic Strep. Repeat blood culture preliminary negative after 24 hours. Started Vancomycin 1750 mg IV per levels, Cefetime 2g IV TID. Lactic acid normal. Continue NS at 140 cc/h. FU BCx (final), and repeat BCx taken yesterday. FU ID consult 2. Allergic rhinitis: Will start Claritin 10 mg PO QD and Flonase. 3. Rash: Erythema multiforme vs. vasculitis? Punch Bx done at [facility] dermatology clinic in [facility] last week. Patient is leukopenic (WBC 3.2) and remains afebrile. ESR 25 elevated. Biopsy taken on , results to take 7- 10 days. Local skin care. 4. Lung CA: Follows up at [facility]. Has 4 radiation and 1 chemotherapy session left per patient. FU outPT. 5. DM: POC glucose 212. Continue Levemir 70 units BID. ISS. Accuchecks. Hypoglycemic protocol. Low carbohydrate diet. 6. Depression: Continue Vortioxetine 20 mg PO QD, Bupropion 200 mg PO BID. 7. DVT/GI Prophylaxis: Lovenox 40 mg SUBCUT QD. Protonix 40 mg PO QD. Hypercalcemia and Prerenal azotemia has resolved. Rash is slightly improved. Patient meets criteria for sepsis, BCx + for group A strep. Unknown source, possible contaminant. Broad spectrum IV Abx until organism identified.
[2018-09-17] MEDS ORDERED: VANCOMYCIN 1,750 MG in SODIUM CHLORIDE 0.9% 500 ML 500 ML IVPB SCH (14:00)
[2018-09-17] MEDS: LORATADINE 10 MG TAB PO SCH (14:32)
[2018-09-17 16:42] LABS: Glucose,Whole Blood 207 mg/dL (75-99)
[2018-09-17 20:39] LABS: Glucose,Whole Blood 266 mg/dL (75-99)
--- NOTE | 2018-09-18 04:19 | PN ---
PROGRESS NOTE DATE OF SERVICE: 09/17/2018. REASON FOR FOLLOWUP: Bacteremia. INTERVAL HISTORY: The patient is currently afebrile. She is breathing comfortably. The patient denies having any chest pain or shortness of breath. Occasional cough. No abdominal pain. No diarrhea. EXAMINATION: Blood pressure is 148/72 with a pulse of 100. Temperature 98.2. She is 97% on room air. General description is an elderly female up in the bed in no distress. Respiratory system: Unlabored breathing with decreased breath sounds. No wheeze. Heart S1, S2 regular rate and rhythm. Abdomen soft. No tenderness. LABS: Hemoglobin is 11.5, white count of 3.2 with a BUN of 17, creatinine 0.54. Blood cultures with alpha hemolytic Streptococcus. Blood culture repeat has been negative so far. DIAGNOSTIC IMPRESSION AND PLAN: Patient with positive blood culture with alpha hemolytic Streptococcus in a patient currently with no clinical disease to go along with it in a patient who was in the hospital with a rash, more likely drug-related plus hypertension that seems to have resolved as no resistant gram positive, gram negative has been grown. Antibiotic will be adjusted to Rocephin 2 g daily while waiting for the final ID of this pathogen and determine the significance and any further workup or management needed or clinically is pointing more towards a possible contamination which is confirmed antibiotic can be safely discontinued. Family was present at bedside. Questions were answered. Antibiotic will be adjusted to ceftriaxone at this point and cefepime will be discontinued. MMODL / IJN: [id number] / MTDD
[2018-09-18] MEDS: SODIUM CHLORIDE 0.9% 1,000 ML IV SCH ×2 (04:39→11:45)
[2018-09-18 06:58] LABS: Glucose,Whole Blood 203 mg/dL (75-99)
[2018-09-18 07:46] LABS: Anisocytosis Slight; Basophils % (A) 1 %; Eosinophils % (A) 1 %; HCT 37.3 % (34.0-46.0); HGB 12.1 gm/dL (11.4-16.0); Lymphocytes # (A) 0.6 k/uL (1.0-4.8); Lymphocytes % (A) 20 %; MCH 29.5 pg (25.0-35.0); MCHC 32.4 g/dL (31.0-37.0); MCV 90.9 fL (80.0-100.0); Macrocytosis Slight; Monocytes # (A) 0.2 k/uL (0-1.0); Monocytes % (A) 8 %; Neutrophils # (A) 2.1 k/uL (1.3-7.7); Neutrophils % (A) 68 %; Platelet Count 199 k/uL (150-450); RBC 4.11 m/uL (3.80-5.40); RDW 19.8 % (11.5-15.5); WBC 3.1 k/uL (3.8-10.6)
[2018-09-18 08:00] LABS: Anion Gap 7 mmol/L; Blood Urea Nitrogen 12 mg/dL (7-17); Calcium 9.4 mg/dL (8.4-10.2); Carbon Dioxide 29 mmol/L (22-30); Chloride 105 mmol/L (98-107); Glucose 180 mg/dL (74-99); Potassium 4.4 mmol/L (3.5-5.1); Sodium 141 mmol/L (137-145)
[2018-09-18] MEDS: INSULIN ASPART 100 UNIT/ML 1 ML 10 ML VIAL SQ SCH ×2 (08:39→13:07)
[2018-09-18] MEDS: buPROPion SR 100 MG TABLET.ER PO SCH (08:40)
[2018-09-18] MEDS: LORATADINE 10 MG TAB PO SCH (08:40)
[2018-09-18] MEDS: PANTOPRAZOLE 40 MG TABLET PO SCH (08:40)
[2018-09-18] MEDS: ENOXAPARIN 40 MG/0.4 ML SYRINGE SQ SCH (08:40)
[2018-09-18] MEDS: Mirabegron [Myrbetriq] 50 MG PO SCH (08:48)
[2018-09-18] MEDS: INSULIN DETEMIR 100 UNIT/ML 10 ML VIAL SQ SCH (08:49)
[2018-09-18] MEDS ORDERED: FLUTICASONE 50MCG/SPRAY NASAL 16GM EA NOSTRIL SCH (09:00)
[2018-09-18] MEDS ORDERED: cefTRIAXone 2,000 MG in SODIUM CHLORIDE 0.9% 100 ML IVPB SCH (09:00)
[2018-09-18 11:30] LABS: Glucose,Whole Blood 206 mg/dL (75-99)
[2018-09-18 12:36] VITALS: PULSE 103; RESP 16
[2018-09-18] MEDS ORDERED: CARVEDILOL 3.125 MG TAB PO STA (13:41)
[2018-09-18] MEDS ORDERED: METOPROLOL SUCCINATE (ER) 25 MG TAB.ER.24H PO SCH (13:45)
--- NOTE | 2018-09-18 13:47 | P.PN ---
Subjective Progress Note Date: 09/18/18 Principal diagnosis: Rash Patient was seen and examined. No acute events overnight. Patient reports improvement in her rash, states is clearing up. She has no other symptoms at this time. She denies any chest pain, shortness of breath, palpitations, dizziness. Hypotension has resolved. Her tachycardia has improved since admission. EKG this morning shows a ventricular rate of 99, normal sinus rhythm with first-degree AV block. Objective - Vital Signs Vital signs: Vital Signs Temp 98.1 F 09/18/18 12:36 Pulse 103 H 09/18/18 12:36 Resp 16 09/18/18 12:36 BP 133/63 09/18/18 12:36 Pulse Ox 96 09/18/18 12:36 Intake & Output 09/17/18 09/18/18 09/18/18 18:59 06:59 18:59 Intake Total 160 1340 Balance 160 1340 Intake: Intake, IV Titration 560 Amount Sodium Chloride 0.9% 1, 560 000 ml @ 140 mls/hr IV . Q7H9M [facility] Rx#:[id number] Oral 160 780 Other: Voiding Method Toilet Toilet Toilet # Voids 3 2 - Exam General: [non toxic], [no distress], [appears at stated age] Derm: [warm], [dry] Head: [atraumatic], [normocephalic], [symmetric] Eyes: [EOMI], [no lid lag], [anicteric sclera] Mouth: [no lip lesion], [mucus membranes moist] Cardiovascular: [S1S2 reg], [no murmur], [positive posterior tibial pulse bilateral], Lungs: [CTA bilateral], [no rhonchi, no rales] , [no accessory muscle use] Abdominal: [soft], [ nontender to palpation], [no guarding], [no appreciable organomegaly] Ext: [no gross muscle atrophy], [no edema], [petechial rash over the bilateral upper extremities, lower extremities (though less) and macules over the bilateral hands - slightly improved] Neuro: [no focal neuro deficits] Psych: [Alert], [oriented], [appropriate affect] - Labs CBC & Chem 7: 09/18/18 06:43 09/18/18 06:43 Labs: Abnormal Lab Results - Last 24 Hours (Table) 09/17/18 09/17/18 09/18/18 Range/Units 16:41 20:30 06:43 WBC (3.8-10.6) k/uL RDW (11.5-15.5) % Lymphocytes # (1.0-4.8) k/uL Glucose 180 H (74-99) mg/dL POC Glucose (mg/dL) 207 H 266 H (75-99) mg/dL 09/18/18 09/18/18 09/18/18 Range/Units 06:43 06:57 11:29 WBC 3.1 L (3.8-10.6) k/uL RDW 19.8 H (11.5-15.5) % Lymphocytes # 0.6 L (1.0-4.8) k/uL Glucose (74-99) mg/dL POC Glucose (mg/dL) 203 H 206 H (75-99) mg/dL Microbiology - Last 24 Hours (Table) 09/14/18 19:50 Blood Culture - Preliminary Blood No Growth after 72 hours 09/15/18 15:51 Blood Culture - Preliminary Blood No Growth after 48 hours 09/14/18 22:01 Blood Culture Gram Stain - Final Blood Blood Culture - Final Alpha Hemolytic Streptococcus Assessment and Plan Assessment: Assessment and Plan 1. Tachycardia: Has gotten better with IVF and IV Abx. EKG this morning with ventricular rate of 99. Patient is not hypoxic with no symptoms of chest pain or dyspnea, low concern for PE. Will start Coreg 3.125 mg PO BID. FU PCP 2. Sepsis: Hypotension possibly due to dehydration? 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 CXR shows known bronchogenic CA. UA is negative for UTI. Patient is afebrile with no leukocytosis (unreliable because she is immunocompromised). BCx + for alpha hemolytic Strep. Repeat blood culture preliminary negative after 48 hours. IV Abx downgraded to IV Ceftriaxone 1g QD. Lactic acid normal. Continue NS at 140 cc/h. FU BCx (final), and repeat BCx taken yesterday. FU ID consult 3. Allergic rhinitis: Will start Claritin 10 mg PO QD and Flonase. 4. Rash: Punch Bx done at [facility] dermatology clinic in [facility] last week. Bx shows linchen sclerosis, possible drug eruption or erythema multiforme. Patient is leukopenic (WBC 3.1) and remains afebrile. ESR 25 elevated. Local skin care. 5. Lung CA: Follows up at [facility]. Has 4 radiation and 1 chemotherapy session left per patient. FU outPT. 6. DM: POC glucose 180. Continue Levemir 70 units BID. ISS. Accuchecks. Hypoglycemic protocol. Low carbohydrate diet. 7. Depression: Continue Vortioxetine 20 mg PO QD, Bupropion 200 mg PO BID. 8. DVT/GI Prophylaxis: Lovenox 40 mg SUBCUT QD. Protonix 40 mg PO QD. Hypercalcemia and Prerenal azotemia has resolved. Rash is slightly improved. Patient meets criteria for sepsis, BCx + for group A strep. Unknown source, likely contaminant (only 1 bottle grew out Strep). Will DC to cover 10 days total of IV Abx. Advised to FU with PCP, Oncology and Dermatology. Will remove punch Bx stitch prior to DC.
[2018-09-18 15:14] VITALS: BP 123/67; TEMP 97.9
--- NOTE | 2018-09-18 17:16 | PN ---
PROGRESS NOTE DATE OF SERVICE: 09/18/2018 REASON FOR FOLLOWUP: 1. Drug rash. 2. Positive blood culture. INTERVAL HISTORY: The patient is currently afebrile. She is breathing comfortably. Denies significant chest pain, shortness of breath or cough. No abdominal pain. No nausea, vomiting or any diarrhea. Her rash has decreased in intensity. PHYSICAL EXAMINATION: Blood pressure 123/67 with a pulse of 103, temperature 97.9. She is 96% on room air. General description is an elderly female up in the bed in no distress. RESPIRATORY SYSTEM: Unlabored breathing. Some decreased breath sounds in the bases. No wheeze. HEART: S1, S2. Regular rate and rhythm. ABDOMEN: Soft. No tenderness. SKIN EXAMINATION: The rash has decreased in intensity. No new rash. No vesicles or bullae. LABS: Hemoglobin is 12.1, white count 3.1 with a BUN of 12, creatinine 0.55. Blood culture alpha hemolytic Streptococcus. Blood culture repeat 09/15 has been negative. DIAGNOSTIC IMPRESSION AND PLAN: 1. Patient with a positive blood culture with alpha hemolytic Streptococcus in a patient with no clinical disease to go along with it. Blood cultures were done before she was started on antibiotic and those are negative, more likely pointing towards possible contamination and not a true infection. Recommend no antibiotic on discharge. 2. Patient with a rash, more likely drug-related with a question of possible chemo; she will discuss further with her oncologist. Continue with supportive care. MMODL / IJN: [id number] /
[2018-09-18] MEDS ORDERED: CARVEDILOL 3.125 MG TAB PO SCH (17:30)
--- NOTE | 2018-09-22 07:51 | CDI ---
Last Revision, October 2017 Documentation Clarification Form Date: 09/22/2018 7:36:22 AM From: Yesika Brock Phone: If you have a question about this query, please contact Allison Carvalho [employer]acer at [phone] between 8am and 5pm. Admit Date: 09/14/2018 9:42:00 PM Patient Name: Evan Yeager Visit Number: [id number] Discharge Date:09/18/18 ATTENTION: The Clinical Documentation Specialists (CDI) and [facility] Coding Staff appreciate your assistance in clarifying documentation. Please respond to the clarification below the line at the bottom and electronically sign. The CDI & [facility] Coding staff will review the response and follow-up if needed. Please note: Queries are made part of the Legal Health Record. If you have any questions, please contact the author of this message via ITS. Charlene Kwong MD Conflicting documentation of sepsis. On 09/[address] Tobin "Pt. with + BC no clinical disease pointing towards contamination. Recommend no abx on DC. 09/[address] Boo "Pt. meets sepsis criteria. BC + for group A Strep Will DC to cover 10 days IV abx." History/Risk Factors: lung CA on chemo and radiation. Immunocompromised. leukopenia Clinical Indicators: WBC 3.6. BC, pulse rate 126, BP 82/63 Treatment: ABX In your opinion what is the most clinically appropriate diagnosis for this patient? Sepsis Sepsis ruled out Other explanation of clinical findings Unable to determine (no explanation for clinical findings) I was not following up patient , please forward any inquiries to Dr. Rajeev GALINDO
--- NOTE | 2018-09-28 03:56 | CDI ---
Last Revision, October 2017 Documentation Clarification Form Date: 09/22/2018 7:36:00 AM From: Yesika Brock Phone: If you have a question about this query, please contact Allison Carvalho Health Promotion Officer at [phone] between 8am and 5pm. Admit Date: 09/14/2018 9:42:00 PM Patient Name: Evan Yeager Visit Number: [id number] Discharge Date:09/18/18 ATTENTION: The Clinical Documentation Specialists (CDI) and [facility] Coding Staff appreciate your assistance in clarifying documentation. Please respond to the clarification below the line at the bottom and electronically sign. The CDI & [facility] Coding staff will review the response and follow-up if needed. Please note: Queries are made part of the Legal Health Record. If you have any questions, please contact the author of this message via ITS. Dr. Boo: Conflicting documentation of sepsis. On 09/[address] Tobin "Pt. with + BC no clinical disease pointing towards contamination. Recommend no abx on DC. 09/[address] Boo "Pt. meets sepsis criteria. BC + for group A Strep Will DC to cover 10 days IV abx." History/Risk Factors: lung CA on chemo and radiation. Immunocompromised. leukopenia Clinical Indicators: WBC 3.6. BC, pulse rate 126, BP 82/63 Treatment: ABX In your opinion what is the most clinically appropriate diagnosis for this patient? Sepsis Sepsis ruled out Other explanation of clinical findings Unable to determine (no explanation for clinical findings) Patient had sepsis ruled out. Likely contaminant blood culture. I covered for her 10 total days regardless. MTDD
--- NOTE | 2018-10-05 15:31 | P.DS ---
Providers Date of admission: 09/14/18 21:42 Expected date of discharge: 09/18/18 Attending physician: Charlene Gonzalez MD Consults: 09/15/18 15:22 Consult Physician Urgent Consulting Provider: Penny Tobin Consult Reason/Comments: Bacteremia, sepsis Do you want consulting provider notified?: Yes Primary care physician: Jose Balderas - Discharge Diagnosis(es) (1) Allergic rhinitis Status: Acute (2) Lung cancer Status: Acute (3) Diabetes mellitus Status: Acute (4) Depression Status: Acute (5) Gram-positive cocci bacteremia Status: Acute (6) Hypotension Status: Acute (7) Rash Status: Acute (8) Tachycardia Status: Acute Hospital Course: 78-year-old female with history of lung cancer currently on chemo and radiation therapy. Patient noticed over the past 2 weeks, eruption of erythematous rash over her upper left extremity. While patient in the ED she became hypotensive and tachycardic for which she was admitted under observation for further monitoring and supportive care. 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 Punch biopsy was performed at [facility] dermatology clinic for depression. Patient was leukopenic with a white blood cell count of 2.6. She remained afebrile during her hospitalization. ESR was 25, slightly elevated. Her rash was treated conservatively and patient was advised to follow-up with her clothing sales assistant for the results. She was initially hypotensive and tachycardic. This is thought to be likely secondary to dehydration but there are concerns for sepsis due to immunodeficient state. Chest x-ray shows known bronchogenic carcinoma. There is no source of infection so she was not started on antibiotics she was resumed on normal saline at 140 mL/h. Urinalysis was negative for urinary tract infection. Blood cultures initially positive for alphahemolytic strep. Patient was started on vancomycin IV and cefepime IV. Lactic acid was normal. Infectious disease was consulted and recommended de-escalating antibiotics to ceftriaxone IV due to the thought that this is a contaminant. Repeat blood cultures were negative at 48 hours. Her tachycardia improved throughout her hospitalization. EKG the morning of discharge showed a ventricular rate of 99. Patient was not hypoxic with no symptoms of chest pain or dyspnea. There is low concerns for PE. She was started on Coreg 3.125 mg by mouth twice a day. Otherwise, her home medications were resumed for lung cancer, diabetes mellitus , depression. Patient was advised follow-up with her primary care provider within 1-2 days of discharge. Patient was also advised to follow-up with her clothing sales assistant, oncologist and radiation oncologist. This complex discharge took greater than 30 minutes. Pertinent Studies: CXR Blood culture Patient Condition at Discharge: Stable Plan - Discharge Summary New Discharge Prescriptions: New Fluticasone Nasal [place] [Flonase Nasal [place]] 2 spray EA NOSTRIL DAILY spr Loratadine [Claritin] 10 mg PO DAILY tab Metoprolol Succinate (ER) [Toprol XL] 12.5 mg PO DAILY #30 tab.er.24h Continue Insulin Glargine [Lantus] 70 unit SQ BID Vortioxetine Hydrobromide [Trintellix] 20 mg PO DAILY Prochlorperazine [Compazine] 10 mg PO Q6H PRN PRN Reason: Nausea Pwykdwy-Ednj-Rcoh [id number] [Excedrin] 1 tab PO DAILY PRN PRN Reason: Migraine Headache buPROPion HCL [Wellbutrin SR] 200 mg PO BID Mirabegron [Myrbetriq] 50 mg PO DAILY Discontinued INSULIN LISPRO (HumaLOG) [HumaLOG] 36 unit SQ DAILY Discharge Medication List Lidbggg-Jfmi-Wiwb [id number] [Excedrin] 1 tab PO DAILY PRN 09/14/18 [History] Insulin Glargine [Lantus] 70 unit SQ BID 09/14/18 [History] Mirabegron [Myrbetriq] 50 mg PO DAILY 09/14/18 [History] Prochlorperazine [Compazine] 10 mg PO Q6H PRN 09/14/18 [History] Vortioxetine Hydrobromide [Trintellix] 20 mg PO DAILY 09/14/18 [History] buPROPion HCL [Wellbutrin SR] 200 mg PO BID 09/14/18 [History] Fluticasone Nasal [place] [Flonase Nasal [place]] 2 spray EA NOSTRIL DAILY spr [Rx] Loratadine [Claritin] 10 mg PO DAILY tab 09/18/18 [Rx] Metoprolol Succinate (ER) [Toprol XL] 12.5 mg PO DAILY #30 tab.er.24h 09/18/18 [ Rx] Follow up Appointment(s)/Referral(s): Jose Balderas MD [Primary Care Provider] - 1-2 days (Patient to call Dr. Balderas's office Thursday morning to schedule follow up appointment. The office is closed at time of discharge. ) Ace Huffman MD [REFERRING] - 1 Week (Oncologist-Patient to make own appt. Office closed at time of discharge. ) Penny Tobin MD [STAFF PHYSICIAN] - 1 Week (Please make own appt. Office closed at time of discharge. ) Patient Instructions/Handouts: Metoprolol (By mouth), Hypotension (DC), Tachycardia (GEN) Activity/Diet/Wound Care/Special Instructions: Diet: Diabetic diet. Please take all medications as advised. Please follow-up with your primary care provider within 1-2 days of discharge. Please arrange appointments to follow-up with your clothing sales assistant, oncologist and radiation oncologist. Discharge Disposition: HOME SELF-CARE Pending Studies Pending Results: Blood cultures.
== END 2018-09-18 16:35 | disposition home or self-care (01) | DRG 596 ==
LOC: EC 18:14 → 3NMEDONC 21:42
PROVIDERS: ADMIT Internal Medicine; ATTEND Internal Medicine
DX: L51.8 Other erythema multiforme (principal); C34.90 Malignant neoplasm of unspecified part of unspecified bronchus or lung; R78.81 Bacteremia; I95.9 Hypotension, unspecified; L95.8 Other vasculitis limited to the skin; T45.1X5A Adverse effect of antineoplastic and immunosuppressive drugs, initial encounter; R00.0 Tachycardia, unspecified; E86.0 Dehydration; D72.819 Decreased white blood cell count, unspecified; E11.9 Type 2 diabetes mellitus without complications; E83.52 Hypercalcemia; F32.9 Major depressive disorder, single episode, unspecified; I10 Essential (primary) hypertension; I44.0 Atrioventricular block, first degree; L90.0 Lichen sclerosus et atrophicus; B95.4 Other streptococcus as the cause of diseases classified elsewhere; J45.909 Unspecified asthma, uncomplicated; K21.9 Gastro-esophageal reflux disease without esophagitis; T17.928A Food in respiratory tract, part unspecified causing other injury, initial encounter; Z79.4 Long term (current) use of insulin; Z79.82 Long term (current) use of aspirin; Z79.899 Other long term (current) drug therapy; Z82.49 Family history of ischemic heart disease and other diseases of the circulatory system; Z87.891 Personal history of nicotine dependence; Z90.710 Acquired absence of both cervix and uterus; Z91.040 Latex allergy status
CPT/HCPCS: 36415; 71046; 80048; 80053; 81003; 83605; 85025; 85610; 85652; 85730; 87040; 87086; 93005; 96361; 96365; 99284

== ENCOUNTER 2019-03-09 16:31 | Emergency (ER) | payer MEDICARE ==
[2019-03-09 16:57] VITALS: TEMP 98.4
[2019-03-09] MEDS ORDERED: ONDANSETRON 4 MG/2 ML VIAL IVP STA (17:18)
[2019-03-09] MEDS ORDERED: MORPHINE SULFATE 4 MG/ML SYRINGE IV STA (17:18)
[2019-03-09] MEDS ORDERED: SODIUM CHLORIDE 0.9% 1,000 ML IV STA (17:18)
--- NOTE | 2019-03-09 17:25 | ED ---
General Adult HPI - General Chief complaint: Extremity Problem,Nontraumatic Stated complaint: Side pain Time Seen by Provider: 03/09/19 17:11 Source: patient, RN notes reviewed Mode of arrival: wheelchair Limitations: no limitations - History of Present Illness Initial comments: 78-year-old female presents emergency Department with chief complaint of lower abdominal pain, flank pain. Patient states that she's had some on Thursday issues of back pain after a fall, compression fracture with kyphoplasty. Patient states that this pain started last 24 hours or she has no abdominal pain radiates to her back states it's severe pain. States her whole abdomen hurts. Patient does have known lung cancer but is not on any current treatment this time. Patient is scheduled for a CT of her chest abdomen pelvis. Patient states that she does have some urinary frequency though she takes smear better. Patient denies fevers or chills. Denies chest pain or shortness of breath are the usual. Patient's had no night sweats. Patient denies any nausea vomiting diarrhea or constipation with usual. - Related Data Home Medications Medication Instructions Recorded Confirmed Insulin Glargine [Lantus] 70 unit SQ QAM 09/14/18 03/09/19 Mirabegron [Myrbetriq] 50 mg PO DAILY 09/14/18 03/09/19 Vortioxetine Hydrobromide 20 mg PO DAILY 09/14/18 03/09/19 [Trintellix] buPROPion HCL [Wellbutrin SR] 200 mg PO BID 09/14/18 03/09/19 Bisoprolol [Zebeta] 5 mg PO DAILY 03/09/19 03/09/19 Fenofibrate Nanocrystallized 145 mg PO DAILY 03/09/19 03/09/19 [Tricor] Insulin Glargine [Lantus] 60 unit SQ HS 03/09/19 03/09/19 Irbesartan [Avapro] 300 mg PO DAILY 03/09/19 03/09/19 Allergies Allergy/AdvReac Type Severity Reaction Status Date / Time latex Allergy Rash/Hives Verified 03/09/19 17:54 Review of Systems ROS Statement: Those systems with pertinent positive or pertinent negative responses have been documented in the HPI. ROS Other: All systems not noted in ROS Statement are negative. Past Medical History Past Medical History: Asthma, Cancer, Diabetes Mellitus Additional Past Medical History / Comment(s): lung cancer History of Any Multi-Drug Resistant Organisms: None Reported Past Surgical History: Back Surgery, Hysterectomy Past Psychological History: Depression Smoking Status: Former smoker Past Alcohol Use History: None Reported Past Drug Use History: None Reported - Past Family History Mother Family Medical History: Hypertension General Exam Limitations: no limitations General appearance: alert, in no apparent distress Head exam: Present: atraumatic, normocephalic, normal inspection Eye exam: Present: normal appearance, PERRL, EOMI. Absent: scleral icterus, conjunctival injection, periorbital swelling ENT exam: Present: normal exam, normal oropharynx, mucous membranes moist, TM's normal bilaterally Neck exam: Present: normal inspection, full ROM. Absent: tenderness, meningismus, lymphadenopathy Respiratory exam: Present: normal lung sounds bilaterally. Absent: respiratory distress, wheezes, rales, rhonchi, stridor Cardiovascular Exam: Present: regular rate, normal rhythm, normal heart sounds. Absent: systolic murmur, diastolic murmur, rubs, gallop, clicks GI/Abdominal exam: Present: soft, tenderness (Moderate diffuse), normal bowel sounds. Absent: distended, guarding, rebound, rigid Back exam: Present: full ROM. Absent: tenderness, CVA tenderness (R), CVA tenderness (L) Neurological exam: Present: alert, oriented X3, CN II-XII intact Skin exam: Present: warm, dry, intact, normal color. Absent: rash Course Vital Signs 03/09/19 03/09/19 03/09/19 16:53 18:56 20:48 Temperature 98.4 F Pulse Rate 66 78 79 Respiratory 18 18 16 Rate Blood Pressure 107/57 116/49 106/54 O2 Sat by Pulse 97 97 94 L Oximetry Medical Decision Making - Medical Decision Making 78-year-old female presented emergency department with chief complaint lower abdominal pain. Patient does have a history of lung cancer. CT chest abdomen pelvis were obtained which shows areas of her lung, liver or concerning for cancer. Patient has appointment tomorrow with her oncologist. She prefers to follow-up with oncology tomorrow. Patient was offered admission. She does have evidence of constipation which may be leading to her discomfort. Patient will be discharged with magnesium citrate. Return parameters were discussed. - Lab Data Result diagrams: 03/09/19 17:45 04/17/19 17:45 Lab Results 03/09/19 03/09/19 03/09/19 Range/Units 17:45 17:45 17:45 WBC 8.9 (3.8-10.6) k/uL RBC 4.40 (3.80-5.40) m/uL Hgb 12.7 (11.4-16.0) gm/dL Hct 38.9 (34.0-46.0) % MCV 88.5 (80.0-100.0) fL MCH 28.8 (25.0-35.0) pg MCHC 32.5 (31.0-37.0) g/dL RDW 13.1 (11.5-15.5) % Plt Count 330 (150-450) k/uL Neutrophils % 73 % Lymphocytes % 12 % Monocytes % 5 % Eosinophils % 7 % Basophils % 1 % Neutrophils # 6.6 (1.3-7.7) k/uL Lymphocytes # 1.1 (1.0-4.8) k/uL Monocytes # 0.5 (0-1.0) k/uL Eosinophils # 0.6 (0-0.7) k/uL Basophils # 0.1 (0-0.2) k/uL PT (9.0-12.0) sec INR (<1.2) APTT (22.0-30.0) sec Sodium 139 (137-145) mmol/L Potassium 4.6 (3.5-5.1) mmol/L Chloride 104 (98-107) mmol/L Carbon Dioxide 28 (22-30) mmol/L Anion Gap 7 mmol/L BUN 22 H (7-17) mg/dL Creatinine 0.57 (0.52-1.04) mg/dL Est GFR (CKD-EPI)AfAm >90 (>60 ml/min/1.73 sqM) Est GFR (CKD-EPI)NonAf >90 (>60 ml/min/1.73 sqM) Glucose 217 H (74-99) mg/dL Plasma Lactic Acid Zane 1.6 (0.7-2.0) mmol/L Calcium 10.9 H (8.4-10.2) mg/dL Total Bilirubin 0.6 (0.2-1.3) mg/dL AST 33 (14-36) U/L ALT 43 (9-52) U/L Alkaline Phosphatase 104 (38-126) U/L Total Protein 6.3 (6.3-8.2) g/dL Albumin 3.4 L (3.5-5.0) g/dL Lipase 126 (23-300) U/L Urine Color Urine Appearance (Clear) Urine pH (5.0-8.0) Ur Specific [place] (1.001-1.035) Urine Protein (Negative) Urine Glucose (UA) (Negative) Urine Ketones (Negative) Urine Blood (Negative) Urine Nitrite (Negative) Urine Bilirubin (Negative) Urine Urobilinogen (<2.0) mg/dL Ur Leukocyte Esterase (Negative) Urine RBC (0-5) /hpf Urine WBC (0-5) /hpf Ur Squamous Epith Cells (0-4) /hpf Urine Bacteria (None) /hpf Urine Mucus (None) /hpf 03/09/19 03/09/19 Range/Units 17:45 20:25 WBC (3.8-10.6) k/uL RBC (3.80-5.40) m/uL Hgb (11.4-16.0) gm/dL Hct (34.0-46.0) % MCV (80.0-100.0) fL MCH (25.0-35.0) pg MCHC (31.0-37.0) g/dL RDW (11.5-15.5) % Plt Count (150-450) k/uL Neutrophils % % Lymphocytes % % Monocytes % % Eosinophils % % Basophils % % Neutrophils # (1.3-7.7) k/uL Lymphocytes # (1.0-4.8) k/uL Monocytes # (0-1.0) k/uL Eosinophils # (0-0.7) k/uL Basophils # (0-0.2) k/uL PT 10.1 (9.0-12.0) sec INR 0.9 (<1.2) APTT 20.5 L (22.0-30.0) sec Sodium (137-145) mmol/L Potassium (3.5-5.1) mmol/L Chloride (98-107) mmol/L Carbon Dioxide (22-30) mmol/L Anion Gap mmol/L BUN (7-17) mg/dL Creatinine (0.52-1.04) mg/dL Est GFR (CKD-EPI)AfAm (>60 ml/min/1.73 sqM) Est GFR (CKD-EPI)NonAf (>60 ml/min/1.73 sqM) Glucose (74-99) mg/dL Plasma Lactic Acid Zane (0.7-2.0) mmol/L Calcium (8.4-10.2) mg/dL Total Bilirubin (0.2-1.3) mg/dL AST (14-36) U/L ALT (9-52) U/L Alkaline Phosphatase (38-126) U/L Total Protein (6.3-8.2) g/dL Albumin (3.5-5.0) g/dL Lipase (23-300) U/L Urine Color Yellow Urine Appearance Cloudy H (Clear) Urine pH 5.5 (5.0-8.0) Ur Specific [place] >1.050 H (1.001-1.035) Urine Protein Trace H (Negative) Urine Glucose (UA) Negative (Negative) Urine Ketones Negative (Negative) Urine Blood Negative (Negative) Urine Nitrite Negative (Negative) Urine Bilirubin Negative (Negative) Urine Urobilinogen 2.0 (<2.0) mg/dL Ur Leukocyte Esterase Negative (Negative) Urine RBC 4 (0-5) /hpf Urine WBC 1 (0-5) /hpf Ur Squamous Epith Cells 38 H (0-4) /hpf Urine Bacteria Occasional H (None) /hpf Urine Mucus Rare H (None) /hpf Disposition Clinical Impression: Lung cancer, Abdominal pain, Constipation Disposition: HOME SELF-CARE Condition: Stable Instructions (If sedation given, give patient instructions): Abdominal Pain (ED) Additional Instructions: Please follow up with her oncologist tomorrow.Please return to the Emergency Department if symptoms worsen or any other concerns. Is patient prescribed a controlled substance at d/c from ED?: No Referrals: Jose Balderas MD [Primary Care Provider] - 1-2 days Time of Disposition: 21:12
[2019-03-09 17:55] LABS: Basophils # (A) 0.1 k/uL (0-0.2); Basophils % (A) 1 %; Eosinophils # (A) 0.6 k/uL (0-0.7); Eosinophils % (A) 7 %; HCT 38.9 % (34.0-46.0); HGB 12.7 gm/dL (11.4-16.0); Lymphocytes # (A) 1.1 k/uL (1.0-4.8); Lymphocytes % (A) 12 %; MCH 28.8 pg (25.0-35.0); MCHC 32.5 g/dL (31.0-37.0); MCV 88.5 fL (80.0-100.0); Mean Platelet Volume 6.5; Monocytes # (A) 0.5 k/uL (0-1.0); Monocytes % (A) 5 %; Neutrophils # (A) 6.6 k/uL (1.3-7.7); Neutrophils % (A) 73 %; Platelet Count 330 k/uL (150-450); RDW 13.1 % (11.5-15.5); WBC 8.9 k/uL (3.8-10.6)
[2019-03-09 18:07] LABS: ALT 43 U/L (9-52); AST 33 U/L (14-36); Albumin 3.4 g/dL (3.5-5.0); Alkaline Phosphatase 104 U/L (38-126); Anion Gap 7 mmol/L; Blood Urea Nitrogen 22 mg/dL (7-17); Calcium 10.9 mg/dL (8.4-10.2); Carbon Dioxide 28 mmol/L (22-30); Chloride 104 mmol/L (98-107); Glucose 217 mg/dL (74-99); Lipase 126 U/L (23-300); Potassium 4.6 mmol/L (3.5-5.1); Sodium 139 mmol/L (137-145); Total Bilirubin 0.6 mg/dL (0.2-1.3); Total Protein 6.3 g/dL (6.3-8.2)
[2019-03-09 18:12] LABS: INR 0.9 (<1.2); Partial Thromboplastin Time 20.5 sec (22.0-30.0); Prothrombin Time 10.1 sec (9.0-12.0)
--- NOTE | 2019-03-09 19:33 | CT ---
EXAMINATION TYPE: CT ChestAbdPelvis w con DATE OF EXAM: 03/09/2019 COMPARISON: None HISTORY: Lung cancer history, severe abdominal pain CT DLP: 1626.9 mGycm Automated exposure control for dose reduction was used. CONTRAST: CT scan of the chest, abdomen and pelvis is performed; patient injected with 100 mL of Isov ue 300. FINDINGS: AIRWAYS: Unremarkable. LUNGS: There is right hilar adenopathy and multifocal ill-defined opacities throughout the right uppe r and mid and lower lung zone. The right lung is approximately 50% in place. The left lung is entirel y clear and well expanded. PLEURAL SPACES: Negative. MEDIASTINUM: Right hilar adenopathy noted, but no mediastinal and left hilar adenopathy. Mild cardiom egaly without pericardial effusion. Aorta and visualized pulmonary arterial tree unremarkable. LIVER/GB: There are numerous 1 - 4 cm hypodense liver lesions throughout the right and left hepatic l obes, most measuring 2 cm diameter, without associated biliary tree obstruction or vascular obstructi on. Some of these liver lesions stretch the liver capsule. PANCREAS: No significant abnormality is seen. SPLEEN: No significant abnormality is seen. ADRENALS: Left adrenal fatty lesions are noted, consistent with incidental myelolipomas. KIDNEYS: No obstructive uropathy. No focal findings. BOWEL: No bowel obstruction. Excessive pancolonic stool volume noted. REPRODUCTIVE ORGANS: No gross abnormality seen. LYMPH NODES: No greater than 1 cm abdominal or pelvic lymph nodes are appreciated. OSSEOUS STRUCTURES: No significant abnormality is seen. OTHER: No acute vascular findings. IMPRESSION: CHEST: Multifocal ill-defined right lung opacities with right hilar adenopathy. ABDOMEN-PELVIS: Multifocal liver lesions with stretching of the liver capsule. Excessive pancolonic s tool volume also noted.
[2019-03-09] MEDS ORDERED: KETOROLAC 30 MG/ML 1 ML VIAL IVP STA (20:38)
[2019-03-09 20:50] VITALS: BP 106/54; PULSE 79; RESP 16
[2019-03-09 21:05] LABS: Appearance,Urine Cloudy (Clear); Bacteria,Urine Occasional /hpf; Bilirubin,Urine Negative (Negative); Blood,Urine Negative (Negative); Color,Urine Yellow; Glucose,Urine (UA) Negative (Negative); Ketones,Urine Negative (Negative); Leukocyte Esterase,Urine Negative (Negative); Mucus,Urine Rare /hpf; Nitrite,Urine Negative (Negative); PH, Urine 5.5 (5.0-8.0); Protein,Urine Trace (Negative); RBC,Urine 4 /hpf (0-5); Squamous Epithelial Cell,Urine 38 /hpf (0-4)
[2019-03-09 21:08] LABS: Specific Gravity,Urine >1.050 (1.001-1.035)
[2019-03-09] MEDS ORDERED: MAGNESIUM CITRATE 296 ML BOTTLE PO ONE (21:11)
== END 2019-03-09 21:36 | disposition home or self-care (01) ==
LOC: EC 16:31
DX: K59.00 Constipation, unspecified (principal); R10.84 Generalized abdominal pain; J45.909 Unspecified asthma, uncomplicated; E11.9 Type 2 diabetes mellitus without complications; F32.9 Major depressive disorder, single episode, unspecified; Z85.118 Personal history of other malignant neoplasm of bronchus and lung; Z87.891 Personal history of nicotine dependence; Z79.4 Long term (current) use of insulin; Z79.899 Other long term (current) drug therapy; Z91.040 Latex allergy status; Z90.710 Acquired absence of both cervix and uterus
CPT/HCPCS: 36415; 80053; 83605; 83690; 85025; 85610; 85730; 81001; 71260; 74177; 99284; 96374; 96375 ×2; 96361; J2270; J2405; J1885; Q9967

== ENCOUNTER 2019-03-18 10:11 | Inpatient (IN) | payer MEDICARE ==
--- NOTE | 2019-03-18 10:31 | ED ---
Fall HPI - General Chief Complaint: Fall Stated Complaint: Fall Time Seen by Provider: 03/18/19 10:14 Source: EMS Mode of arrival: EMS - History of Present Illness Initial Comments: Patient states that she had a fall. She injured her low back. Patient states that she has weakness all over. Nothing makes her symptoms better or worse. She tried to get out of bed today and she just slid to the ground. She did not hit her head. She did not lose consciousness. She has no focal weakness. She has no belly pain. She has no nausea or vomiting. She denies any pain or pressure in the chest. She has no diaphoresis. Nothing makes her symptoms better or worse. She has taken no medicine for the pain in the low back that she sustained today. - Related Data Home Medications Medication Instructions Recorded Confirmed Insulin Glargine [Lantus] 70 unit SQ QAM 09/14/18 03/18/19 Mirabegron [Myrbetriq] 50 mg PO DAILY 09/14/18 03/18/19 Vortioxetine Hydrobromide 20 mg PO DAILY 09/14/18 03/18/19 [Trintellix] buPROPion HCL [Wellbutrin SR] 200 mg PO BID 09/14/18 03/18/19 Bisoprolol [Zebeta] 5 mg PO DAILY 03/09/19 03/18/19 Fenofibrate Nanocrystallized 145 mg PO DAILY 03/09/19 03/18/19 [Tricor] Insulin Glargine [Lantus] 60 unit SQ HS 03/09/19 03/18/19 Irbesartan [Avapro] 300 mg PO DAILY 03/09/19 03/18/19 Albuterol Inhaler [Ventolin Hfa 2 puff INHALATION RT-Q6H PRN 03/18/19 03/18/19 Inhaler] Allergies Allergy/AdvReac Type Severity Reaction Status Date / Time latex Allergy Rash/Hives Verified 03/18/19 10:38 Review of Systems ROS Statement: Those systems with pertinent positive or pertinent negative responses have been documented in the HPI. ROS Other: All systems not noted in ROS Statement are negative. Past Medical History Past Medical History: Asthma, Cancer, Diabetes Mellitus Additional Past Medical History / Comment(s): lung cancer History of Any Multi-Drug Resistant Organisms: None Reported Past Surgical History: Back Surgery, Hysterectomy Past Psychological History: Depression Smoking Status: Former smoker Past Alcohol Use History: None Reported Past Drug Use History: None Reported - Past Family History Mother Family Medical History: Hypertension General Exam Limitations: no limitations General appearance: alert, in no apparent distress Head exam: Present: atraumatic, normocephalic, normal inspection Eye exam: Present: normal appearance, PERRL, EOMI. Absent: scleral icterus, conjunctival injection, periorbital swelling ENT exam: Present: normal exam, mucous membranes moist Neck exam: Present: normal inspection. Absent: tenderness, meningismus, lymphadenopathy Respiratory exam: Present: normal lung sounds bilaterally. Absent: respiratory distress, wheezes, rales, rhonchi, stridor Cardiovascular Exam: Present: regular rate, normal rhythm, normal heart sounds. Absent: systolic murmur, diastolic murmur, rubs, gallop, clicks GI/Abdominal exam: Present: soft, normal bowel sounds. Absent: distended, tenderness, guarding, rebound, rigid Extremities exam: Present: normal inspection, full ROM, normal capillary refill. Absent: tenderness, pedal edema, joint swelling, calf tenderness Back exam: Present: normal inspection Neurological exam: Present: alert, oriented X3, CN II-XII intact Psychiatric exam: Present: normal affect, normal mood Skin exam: Present: warm, dry, intact, normal color. Absent: rash Course Vital Signs 03/18/19 10:12 Temperature 100.7 F H Pulse Rate 59 L Respiratory 18 Rate Blood Pressure 96/41 O2 Sat by Pulse 97 Oximetry Medical Decision Making - Medical Decision Making Patient presents with weakness. She had a fall. She has negative x-rays. She is not ambulating well. She cannot take care of herself. She will be admitted to the hospital. - Lab Data Result diagrams: 03/18/19 10:50 03/18/19 10:50 Lab Results 03/18/19 03/18/19 03/18/19 Range/Units 10:50 10:50 10:50 WBC 11.9 H (3.8-10.6) k/uL RBC 4.42 (3.80-5.40) m/uL Hgb 12.7 (11.4-16.0) gm/dL Hct 38.7 (34.0-46.0) % MCV 87.5 (80.0-100.0) fL MCH 28.6 (25.0-35.0) pg MCHC 32.7 (31.0-37.0) g/dL RDW 13.9 (11.5-15.5) % Plt Count 288 (150-450) k/uL Neutrophils % 85 % Lymphocytes % 7 % Monocytes % 5 % Eosinophils % 1 % Basophils % 0 % Neutrophils # 10.1 H (1.3-7.7) k/uL Lymphocytes # 0.8 L (1.0-4.8) k/uL Monocytes # 0.6 (0-1.0) k/uL Eosinophils # 0.1 (0-0.7) k/uL Basophils # 0.0 (0-0.2) k/uL PT (9.0-12.0) sec INR (<1.2) APTT (22.0-30.0) sec Sodium 135 L (137-145) mmol/L Potassium 4.2 (3.5-5.1) mmol/L Chloride 100 (98-107) mmol/L Carbon Dioxide 28 (22-30) mmol/L Anion Gap 7 mmol/L BUN 12 (7-17) mg/dL Creatinine 0.47 L (0.52-1.04) mg/dL Est GFR (CKD-EPI)AfAm >90 (>60 ml/min/1.73 sqM) Est GFR (CKD-EPI)NonAf >90 (>60 ml/min/1.73 sqM) Glucose 75 (74-99) mg/dL Plasma Lactic Acid Zane 1.1 (0.7-2.0) mmol/L Calcium 11.9 H (8.4-10.2) mg/dL Total Bilirubin 1.8 H (0.2-1.3) mg/dL AST 142 H (14-36) U/L ALT 174 H (9-52) U/L Alkaline Phosphatase 193 H (38-126) U/L Troponin I (0.000-0.034) ng/mL Total Protein 6.3 (6.3-8.2) g/dL Albumin 3.4 L (3.5-5.0) g/dL 03/18/19 03/18/19 Range/Units 10:50 10:50 WBC (3.8-10.6) k/uL RBC (3.80-5.40) m/uL Hgb (11.4-16.0) gm/dL Hct (34.0-46.0) % MCV (80.0-100.0) fL MCH (25.0-35.0) pg MCHC (31.0-37.0) g/dL RDW (11.5-15.5) % Plt Count (150-450) k/uL Neutrophils % % Lymphocytes % % Monocytes % % Eosinophils % % Basophils % % Neutrophils # (1.3-7.7) k/uL Lymphocytes # (1.0-4.8) k/uL Monocytes # (0-1.0) k/uL Eosinophils # (0-0.7) k/uL Basophils # (0-0.2) k/uL PT 10.7 (9.0-12.0) sec INR 1.0 (<1.2) APTT 22.0 (22.0-30.0) sec Sodium (137-145) mmol/L Potassium (3.5-5.1) mmol/L Chloride (98-107) mmol/L Carbon Dioxide (22-30) mmol/L Anion Gap mmol/L BUN (7-17) mg/dL Creatinine (0.52-1.04) mg/dL Est GFR (CKD-EPI)AfAm (>60 ml/min/1.73 sqM) Est GFR (CKD-EPI)NonAf (>60 ml/min/1.73 sqM) Glucose (74-99) mg/dL Plasma Lactic Acid Zane (0.7-2.0) mmol/L Calcium (8.4-10.2) mg/dL Total Bilirubin (0.2-1.3) mg/dL AST (14-36) U/L ALT (9-52) U/L Alkaline Phosphatase (38-126) U/L Troponin I <0.012 (0.000-0.034) ng/mL Total Protein (6.3-8.2) g/dL Albumin (3.5-5.0) g/dL - EKG Data -: EKG Interpreted by Me EKG Comments: Twelve-lead EKG interpreted by me showing ventricular rate 85 bpm, slightly long ID interval, no ST elevation or depression, interpreted by me as sinus rhythm with first-degree AV block Disposition Clinical Impression: Fall Disposition: ADMITTED IP TO THIS HOSP Condition: Fair Is patient prescribed a controlled substance at d/c from ED?: No Referrals: Jose Balderas MD [Primary Care Provider] - 1-2 days
[2019-03-18] MEDS: SODIUM CHLORIDE 0.9% 500 ML 500 ML IV SCH ×2 (10:56→20:33)
[2019-03-18 11:21] LABS: ALT 174 U/L (9-52); AST 142 U/L (14-36); Albumin 3.4 g/dL (3.5-5.0); Alkaline Phosphatase 193 U/L (38-126); Anion Gap 7 mmol/L; Blood Urea Nitrogen 12 mg/dL (7-17); Calcium 11.9 mg/dL (8.4-10.2); Carbon Dioxide 28 mmol/L (22-30); Chloride 100 mmol/L (98-107); Glucose 75 mg/dL (74-99); Potassium 4.2 mmol/L (3.5-5.1); Sodium 135 mmol/L (137-145); Total Bilirubin 1.8 mg/dL (0.2-1.3); Total Protein 6.3 g/dL (6.3-8.2)
[2019-03-18 11:30] LABS: Prothrombin Time 10.7 sec (9.0-12.0)
[2019-03-18 11:31] LABS: Basophils % (A) 0 %; Eosinophils # (A) 0.1 k/uL (0-0.7); Eosinophils % (A) 1 %; HCT 38.7 % (34.0-46.0); HGB 12.7 gm/dL (11.4-16.0); Lymphocytes # (A) 0.8 k/uL (1.0-4.8); Lymphocytes % (A) 7 %; MCH 28.6 pg (25.0-35.0); MCHC 32.7 g/dL (31.0-37.0); MCV 87.5 fL (80.0-100.0); Mean Platelet Volume 7.2; Monocytes # (A) 0.6 k/uL (0-1.0); Monocytes % (A) 5 %; Neutrophils # (A) 10.1 k/uL (1.3-7.7); Neutrophils % (A) 85 %; Platelet Count 288 k/uL (150-450); RBC 4.42 m/uL (3.80-5.40); RDW 13.9 % (11.5-15.5); WBC 11.9 k/uL (3.8-10.6)
--- NOTE | 2019-03-18 13:40 | XR ---
Lumbar spine HISTORY: Trauma and pain 3 views of the lumbar spine Correlation to prior exam 03/09/2019 Post vertebroplasty change noted for fracture at L4. Multilevel degenerative disc changes are present . Alignment is maintained. Sclerosis in the posterior elements compatible with facet arthropathy. The re are dense vascular calcifications present. Bone mineralization is reduced. IMPRESSION: Osteopenia, degenerative disc disease, facet arthropathy and postprocedural changes. No a cute fracture or subluxation.
--- NOTE | 2019-03-18 13:42 | XR ---
AP pelvis HISTORY: Trauma and pain Correlation CT 03/09/2019 Frontal view of the pelvis on 2 images The bone mineralization is mildly reduced. There are changes of osteonecrosis within the femoral head s. No femoral head collapse. Vascular calcifications present within the pelvis. IMPRESSION: No acute fracture or dislocation. Osteonecrosis of the hips.
--- NOTE | 2019-03-18 13:44 | XR ---
EXAMINATION TYPE: XR chest 2V DATE OF EXAM: 03/18/2019 COMPARISON: Prior chest x-ray dated 09/14/2018, chest CT 03/09/2018 HISTORY: Fever, trauma and pain TECHNIQUE: Frontal and lateral views of the chest are obtained. FINDINGS: Volume loss in the right hemithorax is present with tenting of the right hemidiaphragm, ab normal soft tissue density compatible with patient's lung mass is noted in the right hilar region. No evident pneumothorax or pleural effusion. Heart size within normal limits accounting for rotation. B ones appear intact. IMPRESSION: Findings compatible with underlying lung cancer. No acute fracture.
[2019-03-18] MEDS ORDERED: NALOXONE 0.4 MG/ML 1 ML VIAL IV PRN (16:12)
[2019-03-18] MEDS ORDERED: ALBUTEROL NEBULIZED 2.5 MG/3 ML INHALATION PRN (16:14)
[2019-03-18] MEDS ORDERED: VANCOMYCIN IV PER PHARMACY 1 EACH MISC MISCELLANE PRN (17:01)
--- NOTE | 2019-03-18 17:01 | P.HPIM ---
History of Present Illness Patient is a pleasant 78-year-old female came in with complaints of falls severe back pain. Patient was doing okay with her home physical therapy and the using a walker at home started having severe pain yesterday. Patient does have low- grade fever patient is elevated liver enzymes as well. Patient in the past had a back surgery in month of November in [facility] details of which are not really available at this time and the patient was subsequently discharged to subacute rehabilitation and was subsequently discharged home with home physical therapy patient uses walker patient does have significant atrophy of both legs. Because of her continued pain she was unable to participate in physical therapy at home very well but her pain is much worse since yesterday. Patient is found to have elevated liver enzymes chest x-ray did not show any significant abnormality is still not available blood cultures soft and patient had low-grade fevers here patient denied any Dysuria. Review of Systems REVIEW OF SYSTEMS: CONSTITUTIONAL: No fever, no malaise, no fatigue. HEENT: No recent visual problems or hearing problems. Denied any sore throat. CARDIOVASCULAR: No chest pain, orthopnea, PND, no palpitations, no syncope. PULMONARY: No shortness of breath, no cough, no hemoptysis. GASTROINTESTINAL: No diarrhea, no nausea, no vomiting, no abdominal pain. NEUROLOGICAL: No headaches, no weakness, no numbness. HEMATOLOGICAL: Denies any bleeding or petechiae. GENITOURINARY: Denies any burning micturition, frequency, or urgency. MUSCULOSKELETAL/RHEUMATOLOGICAL: Severe back pain as mentioned above ENDOCRINE: Denies any polyuria or polydipsia. The rest of the 14-point review of systems is negative. Past Medical History Past Medical History: Asthma, Cancer, Diabetes Mellitus Additional Past Medical History / Comment(s): lung cancer History of Any Multi-Drug Resistant Organisms: None Reported Past Surgical History: Back Surgery, Hysterectomy Past Psychological History: Depression Smoking Status: Former smoker Past Alcohol Use History: None Reported Past Drug Use History: None Reported - Past Family History Mother Family Medical History: Hypertension Medications and Allergies Home Medications Medication Instructions Recorded Confirmed Type Insulin Glargine [Lantus] 70 unit SQ QAM 09/14/18 03/18/19 History Mirabegron [Myrbetriq] 50 mg PO DAILY 09/14/18 03/18/19 History Vortioxetine Hydrobromide 20 mg PO DAILY 09/14/18 03/18/19 History [Trintellix] buPROPion HCL [Wellbutrin SR] 200 mg PO BID 09/14/18 03/18/19 History Bisoprolol [Zebeta] 5 mg PO DAILY 03/09/19 03/18/19 History Fenofibrate Nanocrystallized 145 mg PO DAILY 03/09/19 03/18/19 History [Tricor] Insulin Glargine [Lantus] 60 unit SQ HS 03/09/19 03/18/19 History Irbesartan [Avapro] 300 mg PO DAILY 03/09/19 03/18/19 History Albuterol Inhaler [Ventolin Hfa 2 puff INHALATION RT-Q6H PRN 03/18/19 03/18/19 History Inhaler] Allergies Allergy/AdvReac Type Severity Reaction Status Date / Time latex Allergy Rash/Hives Verified 03/18/19 10:38 Physical Exam Vitals: Vital Signs Temp Pulse Resp BP Pulse Ox 03/18/19 10:12 100.7 F H 59 L 18 96/41 97 Intake and Output 03/18/19 03/18/19 03/18/19 06:59 14:59 22:59 Other: Weight 92.986 kg PHYSICAL EXAMINATION: GENERAL: The patient is alert and oriented x3, not in any acute distress. Well developed, well nourished. HEENT: Pupils are round and equally reacting to light. EOMI. No scleral icterus. No conjunctival pallor. Normocephalic, atraumatic. No pharyngeal erythema. No thyromegaly. CARDIOVASCULAR: S1 and S2 present. No murmurs, rubs, or gallops. PULMONARY: Chest is clear to auscultation, no wheezing or crackles. ABDOMEN: Soft, nontender, nondistended, normoactive bowel sounds. No palpable organomegaly. MUSCULOSKELETAL: No joint swelling or deformity. There is significant paraspinal tenderness in the whole of the lumbar spine EXTREMITIES: No cyanosis, clubbing, or pedal edema. NEUROLOGICAL: Gross neurological examination did not reveal any focal deficits. She does have significant bilateral lower limb muscle atrophy SKIN: No rashes. Results CBC & Chem 7: 03/18/19 10:50 03/18/19 10:50 Labs: Abnormal Lab Results - Last 24 Hours (Table) 03/18/19 03/18/19 Range/Units 10:50 10:50 WBC 11.9 H (3.8-10.6) k/uL Neutrophils # 10.1 H (1.3-7.7) k/uL Lymphocytes # 0.8 L (1.0-4.8) k/uL Sodium 135 L (137-145) mmol/L Creatinine 0.47 L (0.52-1.04) mg/dL Calcium 11.9 H (8.4-10.2) mg/dL Total Bilirubin 1.8 H (0.2-1.3) mg/dL AST 142 H (14-36) U/L ALT 174 H (9-52) U/L Alkaline Phosphatase 193 H (38-126) U/L Albumin 3.4 L (3.5-5.0) g/dL Assessment and Plan Plan: Fever and leukocytosis: Source of infection is not clear to possible cirrhosis considering her recent surgery a paraspinal abscess need to be ruled out although patient does not have any significant increasing weakness patient appears to muscle atrophy and chronic weakness in both legs and I'll obtain a CAT scan of the thoracal lumbar spine to rule out any of these. Patient does have certain onset of back and patient does have elevated liver enzymes will obtain a ultrasound of the gallbladder and biliary tree. She does have history of lung cancer in the past. Blood cultures were obtained. Meantime we may need to start her on #8 antibiotics we'll start vancomycin and consider dose and U nasyn. Until we rule out any kind of infection. -Severe back pain and unable to take care of herself patient lives by herself and patient does have generalized deconditioning muscle atrophy. PT and OT evaluation patient may need placement -Hypertension patient is hypotensive hold off on any antiplatelet medications at this time -Depression -Type 2 diabetes mellitus History of lung cancer -Patient will need formal neurologic DVT and GI prophylaxis
[2019-03-18] MEDS ORDERED: VANCOMYCIN 1,750 MG in SODIUM CHLORIDE 0.9% 500 ML 500 ML IVPB ONE (17:15)
--- NOTE | 2019-03-18 17:32 | CT ---
EXAMINATION TYPE: CT thor lumbar spine w con DATE OF EXAM: 03/18/2019 COMPARISON: 03/09/2019 HISTORY: Severe back pain CT DLP: mGycm Automated exposure control for dose reduction was used. CONTRAST: Performed , patient injected with mL of . The contrast was Isovue 100 mL. FINDINGS: There is previous L4 vertebroplasty. There is 15% compression deformity of L4 vertebra. The thoracic vertebra appear intact. There is hypertrophic spurring anteriorly in the entire thoracic spine and al so lumbar spine. The posterior elements are intact. There is no thoracic paraspinal mass. There is ri ght pleural effusion and infiltrate and atelectasis right lower lobe. There are multiple low density liver masses. I see no focal bone destruction. IMPRESSION: MULTILEVEL HYPERTROPHIC DEGENERATIVE DISC CHANGES WITHOUT SIGNIFICANT DISC SPACE NARROWING. NO ACUTE FRACTURE SEEN. OLD MILD L4 COMPRESSION FRACTURE. THORACIC AND LUMBAR SPINE ARE STABLE COMPARED TO LAS T CT SCAN. NO FOCAL BONE DESTRUCTION. HEPATIC METASTATIC DISEASE. RIGHT LOWER LOBE INFILTRATE AND PLEURAL FLUID CONSISTENT WITH TUMOR. UNCH ANGED.
[2019-03-18] MEDS ORDERED: MORPHINE SULFATE 4 MG/ML SYRINGE IV STA (17:35)
[2019-03-18] MEDS: SODIUM CHLORIDE 0.9% 1,000 ML IV SCH (18:00)
[2019-03-18] MEDS: AMPICILLIN-SULBACTAM 3 GM in SODIUM CHLORIDE 0.9% 100 ML IVPB SCH (19:03)
[2019-03-18 20:28] LABS: Glucose,Whole Blood 110 mg/dL (75-99)
[2019-03-18] MEDS: INSULIN ASPART (NovoLOG) 100 UNIT/ML VIAL SQ SCH ×2 (20:34→20:35)
[2019-03-18] MEDS: INSULIN DETEMIR (LEVEMIR) 100 UNIT/ML SYR SQ SCH (20:48)
[2019-03-18] MEDS: buPROPion SR 100 MG TABLET.ER PO SCH (20:49)
[2019-03-18] MEDS: FAMOTIDINE 20 MG TAB PO SCH (20:49)
[2019-03-18 20:57] VITALS: BMI 32.8
[2019-03-19] MEDS: AMPICILLIN-SULBACTAM 3 GM in SODIUM CHLORIDE 0.9% 100 ML IVPB SCH ×3 (00:46→15:16)
[2019-03-19] MEDS: HEPARIN SODIUM,PORCINE 5,000 UNIT/ML 1 ML VIAL SQ SCH ×3 (00:46→15:17)
[2019-03-19] MEDS: SODIUM CHLORIDE 0.9% 1,000 ML IV SCH ×2 (04:24→15:16)
[2019-03-19 05:08] LABS: Appearance,Urine Clear (Clear); Bilirubin,Urine Negative (Negative); Blood,Urine Negative (Negative); Color,Urine Yellow; Glucose,Urine (UA) Negative (Negative); Ketones,Urine Negative (Negative); Leukocyte Esterase,Urine Negative (Negative); Nitrite,Urine Negative (Negative); PH, Urine 5.5 (5.0-8.0); Protein,Urine Negative (Negative); Specific Gravity,Urine 1.038 (1.001-1.035)
[2019-03-19 07:22] LABS: Glucose,Whole Blood 61 mg/dL (75-99)
[2019-03-19 07:23] LABS: HCT 35.4 % (34.0-46.0); HGB 11.5 gm/dL (11.4-16.0); MCH 29.2 pg (25.0-35.0); MCHC 32.5 g/dL (31.0-37.0); MCV 89.8 fL (80.0-100.0); Mean Platelet Volume 7.1; Platelet Count 252 k/uL (150-450); RBC 3.94 m/uL (3.80-5.40); RDW 13.4 % (11.5-15.5); WBC 11.7 k/uL (3.8-10.6)
[2019-03-19 07:38] LABS: ALT 123 U/L (9-52); AST 84 U/L (14-36); Albumin 2.7 g/dL (3.5-5.0); Alkaline Phosphatase 151 U/L (38-126); Anion Gap 5 mmol/L; Blood Urea Nitrogen 11 mg/dL (7-17); Calcium 10.5 mg/dL (8.4-10.2); Carbon Dioxide 26 mmol/L (22-30); Chloride 105 mmol/L (98-107); Glucose 55 mg/dL (74-99); Potassium 3.7 mmol/L (3.5-5.1); Sodium 136 mmol/L (137-145); Total Bilirubin 1.4 mg/dL (0.2-1.3); Total Protein 5.5 g/dL (6.3-8.2)
[2019-03-19] MEDS: INSULIN ASPART (NovoLOG) 100 UNIT/ML VIAL SQ SCH ×4 (07:53→21:05)
[2019-03-19] MEDS: FAMOTIDINE 20 MG TAB PO SCH ×2 (07:55→21:05)
[2019-03-19] MEDS: BISOPROLOL 5 MG TAB PO SCH (07:55)
[2019-03-19] MEDS: FENOFIBRATE 160 MG TAB PO SCH (07:55)
[2019-03-19] MEDS: buPROPion SR 100 MG TABLET.ER PO SCH ×2 (07:55→21:05)
[2019-03-19] MEDS: VORTIOXETINE HYDROBROMIDE 20 MG TABLET PO SCH (07:56)
--- NOTE | 2019-03-19 08:04 | US ---
EXAMINATION TYPE: US gallbladder DATE OF EXAM: 03/19/2019 COMPARISON: None. CLINICAL HISTORY: elevated liver enzymes. Pain. Poor historian. Hx of liver mets per previous CT. GB removed. Lung cancer. Suboptimal exam due to patient movement from pain EXAM MEASUREMENTS: Liver Length: 18.8 cm CBD: 0.5 cm CHD: 0.3 cm Right Kidney: 11.9 x 6.1 x 5.5 cm Pancreas: Prominent hypoechoic lesion seen in body/ tail region - 4.3 x 2.2 cm Liver: Enlarged in size. Heterogenous. Multiple focal lesion seen throughout right and left lobes of liver. Largest on right - 4.7 x 4.1 x 4.9 cm. Largest on left - 3.3 x 4.0 x 3.4 cm Gallbladder: Surgically absent Evidence for sonographic Mullins's sign: neg CBD: wnl CHD: wnl Right Kidney: lesion vs lobular contour of cortical tissue - 2.3 x 2.1 x 1.8 cm. The liver is enlarged measuring 19 cm. There are multiple focal lesions within the liver. The largest on the right measures 4.9 cm. The largest on the left measures 4 cm. There is a focal lesion in the body of the pancreas measuring 4.3 cm. Gallbladder is been removed. The distal common hepatic duct measures 5 mm. The right kidney appears l obular. There is a questionable focal mass in the medial aspect of the kidney measuring 2.3 cm. IMPRESSION: 1. REDEMONSTRATION OF THE PATIENT'S KNOWN HEPATIC LESIONS. 2. QUESTIONABLE NEW LESIONS IN THE PANCREAS AND RIGHT KIDNEY. A REPEAT CT SCAN OF THE ABDOMEN AND PEL VIS WITH THE SUGGESTED.
[2019-03-19 08:15] LABS: Glucose,Whole Blood 65 mg/dL (75-99)
[2019-03-19 08:40] LABS: Glucose,Whole Blood 95 mg/dL (75-99)
[2019-03-19] MEDS: VANCOMYCIN 1,750 MG in SODIUM CHLORIDE 0.9% 500 ML 500 ML IVPB SCH ×2 (08:57→21:02)
[2019-03-19] MEDS ORDERED: LOSARTAN 50 MG TAB PO SCH (09:00)
[2019-03-19] MEDS: INSULIN DETEMIR (LEVEMIR) 100 UNIT/ML SYR SQ SCH ×2 (09:22→21:05)
[2019-03-19] MEDS: KETOROLAC 30 MG/ML 1 ML VIAL IVP PRN ×2 (11:18→20:06)
[2019-03-19 12:44] LABS: Glucose,Whole Blood 71 mg/dL (75-99)
--- NOTE | 2019-03-19 14:58 | P.PN ---
Subjective 78-year-old female was admitted seconded to falls and severe back pain. Patient had a recent back surgery because of which are not available this was done at [facility] will have to may get medical records from that patient did well L8 subacute rehabilitation was using walker was getting physical therapy at home. Patient can use to have significant amount of pain patient is on Toradol pain management was consulted because of failure to liver enzymes obtain ultrasound of the gallbladder and liver which showed metastatic lesions patient does have lung cancer with metastases recently received chemotherapy. Patient can use to have fevers although source of infection is not clear UA is not significant CAT scan of the back with contrast did not show any significant abnormality I'll obtain consultation from spinal surgeon, patient does have significant metastatic disease in the liver from lung cancer, plan regarding her chemotherapy is unknown at this time we'll also consult oncology and we'll also consult infectious disease as source of infection is not clear. Her fever is not clear. Patient will be continued on broad-spectrum antibodies for now there is no evidence of ascending cholangitis at this time. Elevate liver enzymes are probably secondary to metastatic disease to the liver. Fever may be related to her cancer itself. Constitutional: As mentioned above Cardio vascular: denied any chest pain, palpitations Gastrointestinal denied any nausea vomiting Pulmonary: Denied any shortness of breath cough Neurologic denied any new focal deficits All inpatient medications were reviewed and appropriate changes in these medications as dictated in the interval history and assessment and plan. Objective - Vital Signs Vital signs: Vital Signs Temp 101.0 F H 03/19/19 07:03 Pulse 95 03/19/19 07:03 Resp 16 03/19/19 07:03 BP 110/52 03/19/19 07:03 Pulse Ox 93 L 03/19/19 07:03 Intake & Output 03/18/19 03/19/19 03/19/19 18:59 06:59 18:59 Intake Total 300 600 Output Total 2200 Balance -1900 600 Weight 92.986 kg Intake: Amount of Fluid Infused ( 300 ml) Oral 600 Output: Urine 2200 Straight 1100 Other: # Voids 1 # Bowel Movements 1 1 - Exam HYSICAL EXAMINATION: GENERAL: The patient is alert and oriented x3, not in any acute distress. Well developed, well nourished. HEENT: Pupils are round and equally reacting to light. EOMI. No scleral icterus. No conjunctival pallor. Normocephalic, atraumatic. No pharyngeal erythema. No thyromegaly. CARDIOVASCULAR: S1 and S2 present. No murmurs, rubs, or gallops. PULMONARY: Chest is clear to auscultation, no wheezing or crackles. ABDOMEN: Soft, nontender, nondistended, normoactive bowel sounds. No palpable organomegaly. MUSCULOSKELETAL: No joint swelling or deformity. There is significant paraspinal tenderness in the whole of the lumbar spine EXTREMITIES: No cyanosis, clubbing, or pedal edema. NEUROLOGICAL: Gross neurological examination did not reveal any focal deficits. She does have significant bilateral lower limb muscle atrophy SKIN: No rashes. - Labs CBC & Chem 7: 03/19/19 06:54 03/19/19 06:54 Labs: Abnormal Lab Results - Last 24 Hours (Table) 03/18/19 03/18/19 03/19/19 Range/Units 04:45 20:16 06:54 WBC 11.7 H (3.8-10.6) k/uL Sodium (137-145) mmol/L Creatinine (0.52-1.04) mg/dL Glucose (74-99) mg/dL POC Glucose (mg/dL) 110 H (75-99) mg/dL Calcium (8.4-10.2) mg/dL Total Bilirubin (0.2-1.3) mg/dL AST (14-36) U/L ALT (9-52) U/L Alkaline Phosphatase (38-126) U/L Total Protein (6.3-8.2) g/dL Albumin (3.5-5.0) g/dL Ur Specific [place] 1.038 H (1.001-1.035) 03/19/19 03/19/19 03/19/19 Range/Units 06:54 07:02 08:03 WBC (3.8-10.6) k/uL Sodium 136 L (137-145) mmol/L Creatinine 0.47 L (0.52-1.04) mg/dL Glucose 55 L (74-99) mg/dL POC Glucose (mg/dL) 61 L 65 L (75-99) mg/dL Calcium 10.5 H (8.4-10.2) mg/dL Total Bilirubin 1.4 H (0.2-1.3) mg/dL AST 84 H (14-36) U/L ALT 123 H (9-52) U/L Alkaline Phosphatase 151 H (38-126) U/L Total Protein 5.5 L (6.3-8.2) g/dL Albumin 2.7 L (3.5-5.0) g/dL Ur Specific [place] (1.001-1.035) 03/19/19 Range/Units 12:19 WBC (3.8-10.6) k/uL Sodium (137-145) mmol/L Creatinine (0.52-1.04) mg/dL Glucose (74-99) mg/dL POC Glucose (mg/dL) 71 L (75-99) mg/dL Calcium (8.4-10.2) mg/dL Total Bilirubin (0.2-1.3) mg/dL AST (14-36) U/L ALT (9-52) U/L Alkaline Phosphatase (38-126) U/L Total Protein (6.3-8.2) g/dL Albumin (3.5-5.0) g/dL Ur Specific [place] (1.001-1.035) Microbiology - Last 24 Hours (Table) 03/18/19 10:50 Blood Culture - Preliminary Blood No Growth after 24 hours 03/18/19 04:45 Urine Culture - Preliminary Urine,Catheterized Assessment and Plan Plan: Fever and leukocytosis: Source of infection is not clear , probably secondary to metastatic lung cancer ultrasound of the gallbladder liver did not show any cholelithiasis is a possibility of ischemic colitis is elevated liver enzymes secondary to metastatic disease and the there is no evidence of abscess or para spinal abscess in the lumbosacral spine computed tomography scan. Meantime we may need to start her on empiric antibiotics we'll start vancomycin and consider dose and Unasyn. Until we rule out any kind of infection. Infectious disease was consulted -Lung cancer with metastases to liver active and not in remission -Severe back pain and unable to take care of herself patient lives by herself and patient does have generalized deconditioning muscle atrophy. PT and OT evaluation patient may need placement -Hypertension patient is hypotensive hold off on any antiplatelet medications at this time -Depression -Type 2 diabetes mellitus -Patient will need formal neurologic DVT and GI prophylaxis
[2019-03-19 16:55] LABS: Glucose,Whole Blood 120 mg/dL (75-99)
[2019-03-19] MEDS ORDERED: HYDROcodone/APAP 5-325MG 1 EACH TAB PO PRN (20:02)
--- NOTE | 2019-03-19 20:16 | P.PAINCN ---
History of Present Illness - Reason for Consult Consult date: 03/19/19 - History of Present Illness This is 78 years old female, who was admitted to [facility] secondary to complain of multiple falls and severe low back pain, patient reported that she was diagnosed with a compression fracture of the lumbar spine, and she hasn't vertebroplasty surgery at [facility], done November 2018, patient was discharged to rehab facility, and she was doing physical therapy, patient reported that she continued to have weakness in her lower extremity, which led to multiple falls , patient reported that the intensity of the pain increased over time, and any movement increases her pain, patient was diagnosed with lung cancer, and she was treated with chemo and radiation therapy in August 2018, and currently she is complaining also of generalized pain all over her body, but most of the pain localized in the low back area Past Medical History Past Medical History: Asthma, Cancer, Diabetes Mellitus Additional Past Medical History / Comment(s): lung cancer History of Any Multi-Drug Resistant Organisms: None Reported Past Surgical History: Back Surgery, Hysterectomy Past Anesthesia/Blood Transfusion Reactions: No Reported Reaction Smoking Status: Former smoker - Past Family History Mother Family Medical History: Hypertension Medications and Allergies Home Medications Medication Instructions Recorded Confirmed Type Insulin Glargine [Lantus] 70 unit SQ QAM 09/14/18 03/18/19 History Mirabegron [Myrbetriq] 50 mg PO DAILY 09/14/18 03/18/19 History Vortioxetine Hydrobromide 20 mg PO DAILY 09/14/18 03/18/19 History [Trintellix] buPROPion HCL [Wellbutrin SR] 200 mg PO BID 09/14/18 03/18/19 History Bisoprolol [Zebeta] 5 mg PO DAILY 03/09/19 03/18/19 History Fenofibrate Nanocrystallized 145 mg PO DAILY 03/09/19 03/18/19 History [Tricor] Insulin Glargine [Lantus] 60 unit SQ HS 03/09/19 03/18/19 History Irbesartan [Avapro] 300 mg PO DAILY 03/09/19 03/18/19 History Albuterol Inhaler [Ventolin Hfa 2 puff INHALATION RT-Q6H PRN 03/18/19 03/18/19 History Inhaler] Allergies Allergy/AdvReac Type Severity Reaction Status Date / Time latex Allergy Rash/Hives Verified 03/18/19 10:38 Physical Exam Vitals: Vital Signs Temp Pulse Resp BP Pulse Ox 03/19/19 19:15 100.1 F H 85 16 130/56 95 03/19/19 15:15 98.3 F 76 16 119/53 96 03/19/19 09:10 98.7 F 03/19/19 07:03 101.0 F H 95 16 110/52 93 L 03/19/19 01:45 99.5 F 88 16 118/49 95 Intake and Output 03/19/19 03/19/19 03/19/19 06:59 14:59 22:59 Intake Total 600 Output Total 2200 500 Balance -2200 600 -500 Intake: Oral 600 Output: Urine 2200 500 Straight 1100 Other: # Bowel Movements 1 Review of Systems : - Constitutional : no chills , low-grade fever , no night sweats , - Ears : no ear discharge , no change in hearing -Nose, Mouth ,Throat ; no bleeding gums, no sore throat , no epistaxis , -Cardiovascular : Denies chest pain, , no orthopnea , no palpitation -Respiratory : cough , no dyspnea , no hemoptysis -Gastrointestinal :, no change in bowel habits , no coffee- ground emesis . -Genitourinary : No hematuria , no discharge , no incontinence, -Musculoskeletal : ++ gait dysfunction , report low back pain, report generalized pain , - Neurological : no ataxia , no tremor , no sezure , -Psychatric , no suicidal ideation no hallucination - Endocrine : no cold intolerence , no polyuria , no polydypsia , -Hematologic : no easy bleeding , no easy brusing , -Allergic / immunology : no angioedema , no wheezing ,no allergic rhinitis -Integumentary : no brttle nails , no change hair / nails , no foot/leg ulcers . Physical Examinations : -Constitutional : Cooperative , not in acute distress . -HEENT : nech ; supple , no Lymphadenopathy , no Thyromegaly , :eyes , no icterus, no photophobia . ENT : , normal oropharynx , no Thrush - Respiratory : Chest clear to auscultations Bilaterally , no wheezing . - Cardiovascular : regular rate and rhythem , S1 , S2 , no S3 , no S4. - Gastrointestinal: abdomen soft no tenderness , no organomegally . - Genitourinary : Defferred . -Integumentary : No cellulitis , no ulcers , normal skin turgor , no cyanotic . - neurologic : Cranial nerve II to XII intact , no focal neurological deffecit -psychatric : alert , oriented X 3 , appropriate affect , intact judgment and insight . -Lymphatic : no Lymphadenopathy. - musculoskeltal: Lumber spine moter stegnth lower extremities ,thigh and legs 3/5 Right side , 4/5 Left side , bilateral atrophy in the lower extremity deep tendon reflexes : normal Knee Jerk , normal ankle Jerk positive lumber facet Loading Test Range of motion of the lumbar spine Flexion 30 degrees, extension 10 degrees strait leg raising test , positive at 30 degree Fabere test positive RT and positive LT . Severe tenderness over the sacroiliac joint on the right side, and on the left side Generalized tenderness over the lumbar parave rtebral muscles Results CBC & Chem 7: 03/19/19 06:54 03/19/19 06:54 Labs: Abnormal Lab Results - Last 24 Hours (Table) 03/18/19 03/18/19 03/19/19 Range/Units 04:45 20:16 06:54 WBC 11.7 H (3.8-10.6) k/uL Sodium (137-145) mmol/L Creatinine (0.52-1.04) mg/dL Glucose (74-99) mg/dL POC Glucose (mg/dL) 110 H (75-99) mg/dL Calcium (8.4-10.2) mg/dL Total Bilirubin (0.2-1.3) mg/dL AST (14-36) U/L ALT (9-52) U/L Alkaline Phosphatase (38-126) U/L Total Protein (6.3-8.2) g/dL Albumin (3.5-5.0) g/dL Ur Specific [place] 1.038 H (1.001-1.035) 03/19/19 03/19/19 03/19/19 Range/Units 06:54 07:02 08:03 WBC (3.8-10.6) k/uL Sodium 136 L (137-145) mmol/L Creatinine 0.47 L (0.52-1.04) mg/dL Glucose 55 L (74-99) mg/dL POC Glucose (mg/dL) 61 L 65 L (75-99) mg/dL Calcium 10.5 H (8.4-10.2) mg/dL Total Bilirubin 1.4 H (0.2-1.3) mg/dL AST 84 H (14-36) U/L ALT 123 H (9-52) U/L Alkaline Phosphatase 151 H (38-126) U/L Total Protein 5.5 L (6.3-8.2) g/dL Albumin 2.7 L (3.5-5.0) g/dL Ur Specific [place] (1.001-1.035) 03/19/19 03/19/19 Range/Units 12: 16:41 WBC (3.8-10.6) k/uL Sodium (137-145) mmol/L Creatinine (0.52-1.04) mg/dL Glucose (74-99) mg/dL POC Glucose (mg/dL) 71 L 120 H (75-99) mg/dL Calcium (8.4-10.2) mg/dL Total Bilirubin (0.2-1.3) mg/dL AST (14-36) U/L ALT (9-52) U/L Alkaline Phosphatase (38-126) U/L Total Protein (6.3-8.2) g/dL Albumin (3.5-5.0) g/dL Ur Specific [place] (1.001-1.035) Microbiology - Last 24 Hours (Table) 03/18/19 10:50 Blood Culture - Preliminary Blood No Growth after 24 hours 03/18/19 04:45 Urine Culture - Preliminary Urine,Catheterized Comments: Computed tomography scan of the thoracic and lumbar spine= L4 compression fracture, liver metastases. Generalized degenerative disc disease thoracic, lumbar spine Assessment and Plan Plan: Assessment and plan= pain due to malignancy.( lung cancer with metastases). Compression fractures lumbar spine. Degenerative disc disease thoracic and lumbar spine. Patient could benefit from L[place]eta 5/325 every 6 hours when necessary, risk of opiate addiction and tolerance discussed with the patient and she agreed to the risk, and she is willing to use the pain medication, patient currently is not a candidate to have any interventional pain management, it goes all the fever and leukocytosis, patient could benefit from physical therapy and rehab to improve her muscle atrophy in the lower extremity Time with Patient: Greater than 30 PQRS Measure Charge Sheet Measure #130: Documentation of Current Meds in Medical Chart: Patient's medications documented in chart PQRS Narrative: Smoking Status Former smoker Do You Want the Pneumonia Vaccine Up to Date Vaccine AT THIS TIME? Blood Pressure [Left Arm] 130/56 Blood Pressure 118/62 Pain Intensity [None] 0 Pain Intensity 4 Pain Scale Used Numeric (1 - 10) Scale Used Numeric (1 - 10) Home Medications: Ambulatory Orders Insulin Glargine [Lantus] 70 unit SQ QAM 09/14/18 Mirabegron [Myrbetriq] 50 mg PO DAILY 09/14/18 Vortioxetine Hydrobromide [Trintellix] 20 mg PO DAILY 09/14/18 buPROPion HCL [Wellbutrin SR] 200 mg PO BID 09/14/18 Bisoprolol [Zebeta] 5 mg PO DAILY 03/09/19 Fenofibrate Nanocrystallized [Tricor] 145 mg PO DAILY 03/09/19 Insulin Glargine [Lantus] 60 unit SQ HS 03/09/19 Irbesartan [Avapro] 300 mg PO DAILY 03/09/19 Albuterol Inhaler [Ventolin Hfa Inhaler] 2 puff INHALATION RT-Q6H PRN 03/18/19
[2019-03-19 20:34] LABS: Glucose,Whole Blood 203 mg/dL (75-99)
--- NOTE | 2019-03-19 23:16 | P.CONS ---
History of Present Illness - Reason for Consult Consult date: 03/19/19 Lung cancer Requesting physician: Yenni Agustin - Chief Complaint Fall, generalized weakness - History of Present Illness Ms. Yeager is a very pleasant 78 yo female with multiple comorbidities as listed in PMH who is here for fall and generalized weakness. She has known metastatic lung cancer. Poor historian as she cannot recall the details of her treatment. She does recall undergoing chemoRT for lung cancer in 08/2018, and then she had a fall and L4 fracture with surgical repair. Per records it also appears that she may have had a paraspinal abscess? she was discharged to [facility] and more recently has had increased weakness and falls. Work up in ER with Ca 11.9, elevated LFT's with AST/ALT 100's, alk phos 190, t. bili 1.8. UA negative. Cr and CBC overall unremarkable. Imaging of spine and chest with known lung mass, liver lesions that were seen on prior imaging studies, and old L4 fracture, but no acute fracture or obvious bone met's. Review of Systems All systems: negative Constitutional: Reports as per HPI Past Medical History Past Medical History: Asthma, Cancer, Diabetes Mellitus Additional Past Medical History / Comment(s): lung cancer History of Any Multi-Drug Resistant Organisms: None Reported Past Surgical History: Back Surgery, Hysterectomy Past Anesthesia/Blood Transfusion Reactions: No Reported Reaction Smoking Status: Former smoker - Past Family History Mother Family Medical History: Hypertension Medications and Allergies Home Medications Medication Instructions Recorded Confirmed Type Insulin Glargine [Lantus] 70 unit SQ QAM 09/14/18 03/18/19 History Mirabegron [Myrbetriq] 50 mg PO DAILY 09/14/18 03/18/19 History Vortioxetine Hydrobromide 20 mg PO DAILY 09/14/18 03/18/19 History [Trintellix] buPROPion HCL [Wellbutrin SR] 200 mg PO BID 09/14/18 03/18/19 History Bisoprolol [Zebeta] 5 mg PO DAILY 03/09/19 03/18/19 History Fenofibrate Nanocrystallized 145 mg PO DAILY 03/09/19 03/18/19 History [Tricor] Insulin Glargine [Lantus] 60 unit SQ HS 03/09/19 03/18/19 History Irbesartan [Avapro] 300 mg PO DAILY 03/09/19 03/18/19 History Albuterol Inhaler [Ventolin Hfa 2 puff INHALATION RT-Q6H PRN 03/18/19 03/18/19 History Inhaler] Allergies Allergy/AdvReac Type Severity Reaction Status Date / Time latex Allergy Rash/Hives Verified 03/18/19 10:38 Physical Exam Vitals: Vital Signs Temp Pulse Pulse Resp BP BP Pulse Ox 03/19/19 07:03 101.0 F H 95 16 110/52 93 L 03/19/19 01:45 99.5 F 88 16 118/49 95 03/18/19 20:00 99.6 F 92 18 101/56 94 L 03/18/19 19:55 99.2 F 68 16 118/62 97 Intake and Output 03/18/19 03/19/19 03/19/19 22:59 06:59 14:59 Intake Total 300 Output Total 2200 Balance 300 -2200 Intake: Amount of Fluid Infused ( 300 ml) Output: Urine 2200 Straight 1100 Other: # Voids 1 # Bowel Movements 1 General: In no acute distress. HEENT: No conjunctival pallor or scleral icterus. Mucosa moist. Neck: Neck supple. Lymph: No cervical/supraclavicular LAD. Lungs: Normal respirations. Heart: Regular rate. No LE edema. Abdomen: Soft, nontender, nondistended. MSK: 4/4 strength in all 4 extremities. Neuro: Alert and oriented 3. Skin: No jaundice or rash. Psych: Appropriate affect. Results CBC & Chem 7: 03/19/19 06:54 03/19/19 06:54 Labs: Abnormal Lab Results - Last 24 Hours (Table) 03/18/19 03/18/19 03/19/19 Range/Units 04:45 20:16 06:54 WBC 11.7 H (3.8-10.6) k/uL Sodium (137-145) mmol/L Creatinine (0.52-1.04) mg/dL Glucose (74-99) mg/dL POC Glucose (mg/dL) 110 H (75-99) mg/dL Calcium (8.4-10.2) mg/dL Total Bilirubin (0.2-1.3) mg/dL AST (14-36) U/L ALT (9-52) U/L Alkaline Phosphatase (38-126) U/L Total Protein (6.3-8.2) g/dL Albumin (3.5-5.0) g/dL Ur Specific [place] 1.038 H (1.001-1.035) 03/19/19 03/19/19 03/19/19 Range/Units 06:54 07:02 08:03 WBC (3.8-10.6) k/uL Sodium 136 L (137-145) mmol/L Creatinine 0.47 L (0.52-1.04) mg/dL Glucose 55 L (74-99) mg/dL POC Glucose (mg/dL) 61 L 65 L (75-99) mg/dL Calcium 10.5 H (8.4-10.2) mg/dL Total Bilirubin 1.4 H (0.2-1.3) mg/dL AST 84 H (14-36) U/L ALT 123 H (9-52) U/L Alkaline Phosphatase 151 H (38-126) U/L Total Protein 5.5 L (6.3-8.2) g/dL Albumin 2.7 L (3.5-5.0) g/dL Ur Specific [place] (1.001-1.035) 03/19/19 Range/Units 12:19 WBC (3.8-10.6) k/uL Sodium (137-145) mmol/L Creatinine (0.52-1.04) mg/dL Glucose (74-99) mg/dL POC Glucose (mg/dL) 71 L (75-99) mg/dL Calcium (8.4-10.2) mg/dL Total Bilirubin (0.2-1.3) mg/dL AST (14-36) U/L ALT (9-52) U/L Alkaline Phosphatase (38-126) U/L Total Protein (6.3-8.2) g/dL Albumin (3.5-5.0) g/dL Ur Specific [place] (1.001-1.035) Microbiology - Last 24 Hours (Table) 03/18/19 10:50 Blood Culture - Preliminary Blood No Growth after 24 hours 03/18/19 04:45 Urine Culture - Preliminary Urine,Catheterized Ca on presentation 11.9 with Alb 3.4, repeat Ca 10.5 with alb 2.7 Coags negative CMP with ALT/AST 100's, Alk phos 190's, T. bili 1.8. UA negative Comments: T and L spine X rays with DJD, negative for Fx CT thoracic/lumbar spine negative for acute Fx, DJD seen and old L4 compression Fx CT CAP from 03/09/19 with R lung multifocal opacity and right hilar LAD as well as diffuse liver mets GB US with liver lesions, stable, and possibly new pancreatic and right renal lesions Chest x-ray: report reviewed CT scan - abdomen: report reviewed CT scan - chest: report reviewed US - abdomen: report reviewed Assessment and Plan Assessment: 1. Metastatic lung cancer 2. Hypercalcemia 3. Back pain, old L4 compression fracture due to trauma 4. Generalized weakness Plan: Ms. Yeager is a very pleasant 78 yo female with multiple comorbidities as listed in history including metastatic lung cancer who is here for falls and generalized weakness, found to be significantly hypercalcemic. Unfortunately she is a poor historian and cannot recall the details of her treatment and cancer history, and no records available. Would recommend obtaining records of her cancer history and treatment. She does recall a liver biopsy at one point. Also for her hypercalcemia, will obtain PTH, Vit D, and PTHrp. She denies any calcium supplements. Consider bone mets as source if work up negative. Hydration and consider bisphosphonate therapy to help lower the calcium. Rule out infection as cause of her pain (?history of paraspinal abscess?). Discussed with pt and she is agreeable to the plan. All questions answered.
--- NOTE | 2019-03-20 00:23 | P.CONS ---
History of Present Illness - Reason for Consult Consult date: 03/19/19 fever of unknown origin Requesting physician: Yenni Agustin - Chief Complaint Multiple falls and low back pain x days - History of Present Illness Patient is a 78-year-old female who did have a fall in November 2018 apparently the patient did have L4 fracture for the patient did have surgical treatment done at [facility] subsequently the patient has been sent to subacute rehab and afterwards discharged home, however the patient is educated having low back pain extremity being to be dull aching to sharp about 8 out of 10 and no significant radiation and denies any bowel or bladder problem, the patient did have a follow-up when she slid out of her bed and day of presentation to the hospital and subsequently was brought into the ER for furthe r evaluation of the same, patient did have a CT of the thoracic and lumbar spine did not show any acute fracture, patient to has been running a fever of 101F on a daily basis, that prompted this infectious disease consultation is no obvious source of infection and the patient knew has been negative chest x-ray did not show any evidence of pneumonia patient did have elevated liver enzymes and ultr asound of the liver and gallbladder area did shows gallbladder was surgically absent and the CBD was 5millimeters, patient is currently being treated with broad-spectrum antibiotic in form of Unasyn and vancomycin blood culture has been negative so far Review of Systems CONSTITUTIONAL: Positive for weakness. Fever EYES: No complaint. ENT:No complaint. RESPIRATORY: No complaint. CARDIOVASCULAR: No complaint. GENITOURINARY: No complaint. GASTROINTESTINAL: As per history of present illness. MUSCULOSKELETAL: As per history of present illness INTEGUMENTARY: No complaint. PSYCHOLOGICAL: No complaint. ENDOCRINE: No complaint. NEUROLOGIC: As per history of present illness . Past Medical History Past Medical History: Asthma, Cancer, Diabetes Mellitus Additional Past Medical History / Comment(s): lung cancer History of Any Multi-Drug Resistant Organisms: None Reported Past Surgical History: Back Surgery, Hysterectomy Past Anesthesia/Blood Transfusion Reactions: No Reported Reaction Smoking Status: Former smoker - Past Family History Mother Family Medical History: Hypertension Medications and Allergies Home Medications Medication Instructions Recorded Confirmed Type Insulin Glargine [Lantus] 70 unit SQ QAM 09/14/18 03/18/19 History Mirabegron [Myrbetriq] 50 mg PO DAILY 09/14/18 03/18/19 History Vortioxetine Hydrobromide 20 mg PO DAILY 09/14/18 03/18/19 History [Trintellix] buPROPion HCL [Wellbutrin SR] 200 mg PO BID 09/14/18 03/18/19 History Bisoprolol [Zebeta] 5 mg PO DAILY 03/09/19 03/18/19 History Fenofibrate Nanocrystallized 145 mg PO DAILY 03/09/19 03/18/19 History [Tricor] Insulin Glargine [Lantus] 60 unit SQ HS 03/09/19 03/18/19 History Irbesartan [Avapro] 300 mg PO DAILY 03/09/19 03/18/19 History Albuterol Inhaler [Ventolin Hfa 2 puff INHALATION RT-Q6H PRN 03/18/19 03/18/19 History Inhaler] Allergies Allergy/AdvReac Type Severity Reaction Status Date / Time latex Allergy Rash/Hives Verified 03/18/19 10:38 Physical Exam Vitals: Vital Signs Temp Pulse Pulse Resp BP BP Pulse Ox 03/19/19 07:03 101.0 F H 95 16 110/52 93 L 03/19/19 01:45 99.5 F 88 16 118/49 95 03/18/19 20:00 99.6 F 92 18 101/56 94 L 03/18/19 19:55 99.2 F 68 16 118/62 97 Intake and Output 03/18/19 03/19/19 03/19/19 22:59 06:59 14:59 Intake Total 300 Output Total 2200 Balance 300 -2200 Intake: Amount of Fluid Infused ( 300 ml) Output: Urine 2200 Straight 1100 Other: # Voids 1 # Bowel Movements 1 GENERAL DESCRIPTION: An elderly female lying in bed, no distress. No tachypnea or accessory muscle of respiration use. HEENT: Shows Pallor , no scleral icterus. Oral mucous membrane is dry. No pharyngeal erythema or thrush NECK: Trachea central, no thyromegaly. LUNGS: Unlabored breathing. Decreased breath sound at the base. No wheeze or crackle. HEART: S1, S2, regular rate and rhythm. No loud murmur ABDOMEN: Soft, no tenderness , guarding or rigidity, no organomegaly EXTREMITIES: No edema of feet. SKIN: No rash, no masses palpable. NEUROLOGICAL: The patient is awake, alert, oriented x3, mood and affect normal. Results CBC & Chem 7: 03/19/19 06:54 03/19/19 06:54 Labs: Abnormal Lab Results - Last 24 Hours (Table) 03/18/19 03/18/19 03/19/19 Range/Units 04:45 20:16 06:54 WBC 11.7 H (3.8-10.6) k/uL Sodium (137-145) mmol/L Creatinine (0.52-1.04) mg/dL Glucose (74-99) mg/dL POC Glucose (mg/dL) 110 H (75-99) mg/dL Calcium (8.4-10.2) mg/dL Total Bilirubin (0.2-1.3) mg/dL AST (14-36) U/L ALT (9-52) U/L Alkaline Phosphatase (38-126) U/L Total Protein (6.3-8.2) g/dL Albumin (3.5-5.0) g/dL Ur Specific [place] 1.038 H (1.001-1.035) 03/19/19 03/19/19 03/19/19 Range/Units 06:54 07:02 08:03 WBC (3.8-10.6) k/uL Sodium 136 L (137-145) mmol/L Creatinine 0.47 L (0.52-1.04) mg/dL Glucose 55 L (74-99) mg/dL POC Glucose (mg/dL) 61 L 65 L (75-99) mg/dL Calcium 10.5 H (8.4-10.2) mg/dL Total Bilirubin 1.4 H (0.2-1.3) mg/dL AST 84 H (14-36) U/L ALT 123 H (9-52) U/L Alkaline Phosphatase 151 H (38-126) U/L Total Protein 5.5 L (6.3-8.2) g/dL Albumin 2.7 L (3.5-5.0) g/dL Ur Specific [place] (1.001-1.035) 03/19/19 Range/Units 12:19 WBC (3.8-10.6) k/uL Sodium (137-145) mmol/L Creatinine (0.52-1.04) mg/dL Glucose (74-99) mg/dL POC Glucose (mg/dL) 71 L (75-99) mg/dL Calcium (8.4-10.2) mg/dL Total Bilirubin (0.2-1.3) mg/dL AST (14-36) U/L ALT (9-52) U/L Alkaline Phosphatase (38-126) U/L Total Protein (6.3-8.2) g/dL Albumin (3.5-5.0) g/dL Ur Specific [place] (1.001-1.035) Microbiology - Last 24 Hours (Table) 03/18/19 10:50 Blood Culture - Preliminary Blood No Growth after 24 hours 03/18/19 04:45 Urine Culture - Preliminary Urine,Catheterized Assessment and Plan Assessment: 1-patient with fever in this patient who did have a fall in November 2018 with subsequent L4 fracture status post operative repair of the same at any for Hospital the patient continued to have lower back pain to be her main symptom positive points 04 also includes elevated liver enzymes however the patient did have ultrasound of the gallbladder and liver area the gallbladder was surgically absent CBD was not dilated patient UA is negative chest x-ray did not show any evidence of pneumonia the patient has significant respiratory symptoms source of this fever is likely lumbar spine plus minus ascending cholangitis Plan: 1-we will obtain MRI of the lumbosacral spine with contrast to better evaluate the lumbosacral spine area 2-blood culture has been obtained those will be followed 3-we will continue with Unasyn and vancomycin while waiting for the culture finalized and workup to be completed 4-we will check a sed rate and a CRP with a blood draw We will follow-up on clinical condition and cultures to further adjust medication if needed Thank you for this consultation will follow this patient along with you Time with Patient: Greater than 30
[2019-03-20] MEDS: AMPICILLIN-SULBACTAM 3 GM in SODIUM CHLORIDE 0.9% 100 ML IVPB SCH ×4 (00:53→23:22)
[2019-03-20] MEDS: SODIUM CHLORIDE 0.9% 1,000 ML IV SCH ×3 (00:54→20:37)
[2019-03-20] MEDS: HEPARIN SODIUM,PORCINE 5,000 UNIT/ML 1 ML VIAL SQ SCH ×4 (00:55→23:25)
[2019-03-20 02:05] LABS: Glucose,Whole Blood 146 mg/dL (75-99)
[2019-03-20] MEDS ORDERED: VANCOMYCIN TROUGH DUE 1 EACH MISC MISCELLANE ONE (07:00)
[2019-03-20 07:23] LABS: Glucose,Whole Blood 125 mg/dL (75-99)
[2019-03-20] MEDS: FAMOTIDINE 20 MG TAB PO SCH ×2 (07:59→20:33)
[2019-03-20] MEDS: FENOFIBRATE 160 MG TAB PO SCH (07:59)
[2019-03-20] MEDS: BISOPROLOL 5 MG TAB PO SCH (07:59)
[2019-03-20] MEDS: buPROPion SR 100 MG TABLET.ER PO SCH ×2 (07:59→20:33)
[2019-03-20] MEDS: VORTIOXETINE HYDROBROMIDE 20 MG TABLET PO SCH (07:59)
[2019-03-20] MEDS: INSULIN ASPART (NovoLOG) 100 UNIT/ML VIAL SQ SCH ×4 (08:00→20:47)
[2019-03-20] MEDS: INSULIN DETEMIR (LEVEMIR) 100 UNIT/ML SYR SQ SCH ×2 (08:00→20:38)
[2019-03-20] MEDS: VANCOMYCIN 1,750 MG in SODIUM CHLORIDE 0.9% 500 ML 500 ML IVPB SCH ×2 (08:57→15:41)
--- NOTE | 2019-03-20 10:24 | P.CNOR ---
History of Present Illness - [facility] Consult date: 03/20/19 Consult reason: low back pain History of present illness: The patient is a 78 year old female with a history of lung cancer, diabetes mellitus, and asthma. She presented to the hospital 2 days ago with progressive low back pain and weakness. She underwent a L4 vertebroplasty at [facility] in November 2018 after sustaining a fall on a cement sidewalk. She was subsequently sent to skilled rehab and then sent home with homecare. The patient is very vague and is unable to recall specific details of her history. She has noticed increased weakness and pain in her bilateral legs along with the back pain. The patient has noticed a fever but she could not tell me when the fever started. She has had low-grade fevers since admission to the hospital. She has been seen and evaluated by internal medicine, infectious disease, and interventional pain management. [place]cad[place] and Toradol currently ordered. The patient was also started on Unasyn and vancomycin for possible infection. Ultrasound of the liver and g allbladder reveal probable liver metastasis and a surgically absent gallbladder. CT of the lumbar spine reveals multiple degenerative changes, no fluid collection or abscess is present. The patient states that she has received a round of chemo and radiation in the past and was anticipating starting another round of infusion but has not been well enough to receive this. She states that she is unable to sit or stand for long periods due to her leg weakness. She has been using a walker at home. She is most comfortable when lying flat in bed. WBC yesterday was 11.7. CRP 68.1. Sed rate is currently pending. Nursing staff states that she is a max 2 person assist. PT and OT have been ordered. Review of Systems Constitutional: Reports fever, Denies chills, Denies lethargy Cardiovascular: Denies chest pain, Denies shortness of breath Respiratory: Denies cough Gastrointestinal: Denies diarrhea, Denies nausea, Denies vomiting Musculoskeletal: Reports low back pain, Reports muscle weakness Neurological: Denies head injury Past Medical History Past Medical History: Asthma, Cancer, Diabetes Mellitus Additional Past Medical History / Comment(s): lung cancer History of Any Multi-Drug Resistant Organisms: None Reported Past Surgical History: Back Surgery, Hysterectomy Past Anesthesia/Blood Transfusion Reactions: No Reported Reaction Smoking Status: Former smoker - Past Family History Mother Family Medical History: Hypertension Medications and Allergies Home Medications Medication Instructions Recorded Confirmed Type Insulin Glargine [Lantus] 70 unit SQ QAM 09/14/18 03/18/19 History Mirabegron [Myrbetriq] 50 mg PO DAILY 09/14/18 03/18/19 History Vortioxetine Hydrobromide 20 mg PO DAILY 09/14/18 03/18/19 History [Trintellix] buPROPion HCL [Wellbutrin SR] 200 mg PO BID 09/14/18 03/18/19 History Bisoprolol [Zebeta] 5 mg PO DAILY 03/09/19 03/18/19 History Fenofibrate Nanocrystallized 145 mg PO DAILY 03/09/19 03/18/19 History [Tricor] Insulin Glargine [Lantus] 60 unit SQ HS 03/09/19 03/18/19 History Irbesartan [Avapro] 300 mg PO DAILY 03/09/19 03/18/19 History Albuterol Inhaler [Ventolin Hfa 2 puff INHALATION RT-Q6H PRN 03/18/19 03/18/19 History Inhaler] Allergies Allergy/AdvReac Type Severity Reaction Status Date / Time latex Allergy Rash/Hives Verified 03/18/19 10:38 Physical Examination The patient is a 78-year-old female who is in no acute distress. She is alert and oriented 3. Abdomen is soft and nontender. Chest has good excursion with deep inspiration. Bilateral upper extremities with no obvious deformity or pain upon range of motion. No open wounds are present on her back. She is able to log roll on to her right side but has difficulty lying flat on her back due to pain. Palpation to the lumbar spine reveals pain at the level of L4 with mild paraspinal spasm. She has weak dorsiflexion and plantar flexion and with 2/5 EHL function bilaterally, slightly weaker on the left. She has good foot and ankle motion. Bilateral calves are soft and nontender. Able to feel light touch on her feet and lower legs. Neurological and circulatory status is intact. Corral catheter in place. Results Pelvic x-ray reveals osteonecrosis of the bilateral femoral heads without collapse. No acute fracture seen. - Labs Labs: Abnormal Lab Results - Last 24 Hours (Table) 03/19/19 03/19/19 03/19/19 Range/Units 12:19 16:41 20:23 POC Glucose (mg/dL) 71 L 120 H 203 H (75-99) mg/dL C-Reactive Protein (<10.0) mg/L 03/20/19 03/20/19 03/20/19 Range/Units 01:53 06:59 07:09 POC Glucose (mg/dL) 146 H 125 H (75-99) mg/dL C-Reactive Protein 68.1 H (<10.0) mg/L Microbiology - Last 24 Hours (Table) 03/18/19 10:50 Blood Culture - Preliminary Blood No Growth after 24 hours 03/18/19 04:45 Urine Culture - Preliminary Urine,Catheterized H & H 03/18/19 03/19/19 Range/Units 10:50 06:54 Hgb 12.7 11.5 (11.4-16.0) gm/dL Hct 38.7 35.4 (34.0-46.0) % Coagulation 03/18/19 Range/Units 10:50 INR 1.0 (<1.2) Result Diagrams: 03/19/19 06:54 03/19/19 06:54 - Diagnostic results CT Scan - lumbar: image reviewed (The patient is status post L4 vertebroplasty with adequate positioning. There is multiple levels of facet arthropathy and degenerative changes throughout the lumbar spine.) Assessment and Plan (1) Compression fracture of L4 vertebra Current Visit: Yes Status: Acute Code(s): S32.040A - WEDGE COMPRESSION FRACTURE OF FOURTH LUMBAR VERTEBRA, INIT SNOMED Code(s): 673874286 (2) Degenerative disc disease, lumbar Current Visit: Yes Status: Acute Code(s): M51.36 - OTHER INTERVERTEBRAL DISC DEGENERATION, LUMBAR REGION SNOMED Code(s): 66394224 (3) Weakness Current Visit: Yes Status: Acute Code(s): R53.1 - WEAKNESS SNOMED Code(s): 98973680 (4) Diabetes mellitus Current Visit: No Status: Acute Code(s): E11.9 - TYPE 2 DIABETES MELLITUS WITHOUT COMPLICATIONS SNOMED Code(s): 31183218 (5) Lung cancer Current Visit: No Status: Acute Code(s): C34.90 - MALIGNANT NEOPLASM OF UNSP PART OF UNSP BRONCHUS OR LUNG SNOMED Code(s): 851731025 Plan: The clinical and diagnostic findings were discussed with the patient. The case was also discussed with Dr. Gonzalez. Continue pain control with Toradol and [place]. Continue PT and OT evaluations. No surgical intervention is planned at this time. We will obtain an MRI of the lumbar spine with contrast to further evaluate low back pain and leg weakness and to rule out infection. Await sed rate results. Continue antibiotics per infectious disease. We will continue to follow closely with infectious disease and internal medicine and will make further recommendations pending MRI results.
[2019-03-20 12:23] LABS: Glucose,Whole Blood 129 mg/dL (75-99)
--- NOTE | 2019-03-20 12:51 | P.PN ---
Subjective 78-year-old female was admitted seconded to falls and severe back pain. Patient had a recent back surgery because of which are not available this was done at [facility] will have to may get medical records from that patient did well L8 subacute rehabilitation was using walker was getting physical therapy at home. Patient can use to have significant amount of pain patient is on Toradol pain management was consulted because of failure to liver enzymes obtain ultrasound of the gallbladder and liver which showed metastatic lesions patient does have lung cancer with metastases recently received chemotherapy. Patient can use to have fevers although source of infection is not clear UA is not significant CAT scan of the back with contrast did not show any significant abnormality I'll obtain consultation from spinal surgeon, patient does have significant metastatic disease in the liver from lung cancer, plan regarding her chemotherapy is unknown at this time we'll also consult oncology and we'll also consult infectious disease as source of infection is not clear. Her fever is not clear. Patient will be continued on broad-spectrum antibodies for now there is no evidence of ascending cholangitis at this time. Elevate liver enzymes are probably secondary to metastatic disease to the liver. Fever may be related to her cancer itself. 03/20/2019 Back pain is better controlled but patient continues to have febrile episodes a ssociated infection still not clear infectious disease and orthopedic surgery recommending a spinal MRI. Patient does have hypercalcemia continue with IV fluids as hypercalcemia calcitonin was ordered. PTH is pending. Possibility of her osseous metastasis. Discussed the patient patient is agreeable to get the MRI. Liver enzymes are bit better compared to yesterday. There is no cortical lithiasis a common but bile ductal dilatation. Continue on broad-spectrum antibiotics and infectious disease evaluated the patient patient's C-reactive protein is high Constitutional: As mentioned above Cardio vascular: denied any chest pain, palpitations Gastrointestinal denied any nausea vomiting Pulmonary: Denied any shortness of breath cough Neurologic denied any new focal deficits All inpatient medications were reviewed and appropriate changes in these medications as dictated in the interval history and assessment and plan. Objective - Vital Signs Vital signs: Vital Signs Temp 98.9 F 03/20/19 07:00 Pulse 88 03/20/19 07:00 Resp 20 03/20/19 07:00 BP 129/50 03/20/19 07:00 Pulse Ox 95 03/20/19 07:00 Intake & Output 03/19/19 03/20/19 03/20/19 18:59 06:59 18:59 Intake Total 600 Output Total 500 1050 Balance 100 -1050 Intake: Oral 600 Output: Urine 500 1050 Other: Voiding Method Indwelling Catheter Indwelling Catheter # Bowel Movements 1 1 - Exam HYSICAL EXAMINATION: GENERAL: The patient is alert and oriented x3, not in any acute distress. Well developed, well nourished. HEENT: Pupils are round and equally reacting to light. EOMI. No scleral icterus. No conjunctival pallor. Normocephalic, atraumatic. No pharyngeal erythema. No thyromegaly. CARDIOVASCULAR: S1 and S2 present. No murmurs, rubs, or gallops. PULMONARY: Chest is clear to auscultation, no wheezing or crackles. ABDOMEN: Soft, nontender, nondistended, normoactive bowel sounds. No palpable organomegaly. MUSCULOSKELETAL: No joint swelling or deformity. There is significant paraspinal tenderness in the whole of the lumbar spine EXTREMITIES: No cyanosis, clubbing, or pedal edema. NEUROLOGICAL: Gross neurological examination did not reveal any focal deficits. She does have significant bilateral lower limb muscle atrophy SKIN: No rashes. - Labs CBC & Chem 7: 03/19/19 06:54 03/19/19 06:54 Labs: Abnormal Lab Results - Last 24 Hours (Table) 03/19/19 03/19/19 03/19/19 Range/Units 12:19 16:41 20:23 ESR (0-20) mm/hr POC Glucose (mg/dL) 71 L 120 H 203 H (75-99) mg/dL C-Reactive Protein (<10.0) mg/L 03/20/19 03/20/19 03/20/19 Range/Units 01:53 06:59 06:59 ESR 83 H (0-20) mm/hr POC Glucose (mg/dL) 146 H (75-99) mg/dL C-Reactive Protein 68.1 H (<10.0) mg/L 03/20/19 03/20/19 Range/Units 07:09 11:56 ESR (0-20) mm/hr POC Glucose (mg/dL) 125 H 129 H (75-99) mg/dL C-Reactive Protein (<10.0) mg/L Microbiology - Last 24 Hours (Table) 03/18/19 04:45 Urine Culture - Final Urine,Catheterized 03/18/19 10:50 Blood Culture - Preliminary Blood No Growth after 24 hours Assessment and Plan Plan: Fever and leukocytosis: Source of infection is not clear , probably secondary to metastatic lung cancer ultrasound of the gallbladder liver did not show any cholelithiasis is a possibility of ischemic colitis is elevated liver enzymes secondary to metastatic disease and the there is no evidence of abscess or paraspinal abscess in the lumbosacral spine computed tomography scan. Meantime we may need to start her on empiric antibiotics we'll start vancomycin and consider dose and Unasyn. Until we rule out any kind of infection. Infectious disease was consulted -Lung cancer with metastases to liver active and not in remission -Severe back pain and unable to take care of herself patient lives by herself and patient does have generalized deconditioning muscle atrophy. PT and OT evaluation patient may need placement -Hypertension patient is hypotensive hold off on any antiplatelet medications at this time -Depression -Type 2 diabetes mellitus -Patient will need formal neurologic DVT and GI prophylaxis
[2019-03-20 13:22] LABS: Anion Gap 3 mmol/L; Blood Urea Nitrogen 14 mg/dL (7-17); Carbon Dioxide 28 mmol/L (22-30); Chloride 106 mmol/L (98-107); Glucose 116 mg/dL (74-99); Potassium 3.9 mmol/L (3.5-5.1); Sodium 137 mmol/L (137-145)
[2019-03-20 17:43] LABS: Glucose,Whole Blood 172 mg/dL (75-99)
[2019-03-20] MEDS ORDERED: LORazepam 2 MG/ML INJ IV PRN (17:48)
[2019-03-20] MEDS: KETOROLAC 30 MG/ML 1 ML VIAL IVP PRN (20:44)
[2019-03-20] MEDS ORDERED: CALCITONIN INJ 200 UNIT/ML (MDV) VIAL SQ SCH (21:00)
[2019-03-20 21:12] LABS: Glucose,Whole Blood 202 mg/dL (75-99)
--- NOTE | 2019-03-20 22:43 | PN ---
PROGRESS NOTE DATE OF SERVICE: 03/20/2019. REASON FOR FOLLOWUP: Fever and a question of possible diskitis. INTERVAL HISTORY: The patient overall fever pattern has improved. The patient denies having any chest pain. Her back pain is currently controlled. No nausea, vomiting, or any diarrhea. PHYSICAL EXAMINATION: Blood pressure 147/70 with a pulse of 73, temperature 98.3. She is 95% on room air. General description is an elderly female, lying in bed in no distress. Respiratory system: Unlabored breathing with decreased breath sounds in the bases. No wheeze. Heart S1, S2. Regular rate and rhythm. Abdomen soft. No tenderness. LABS: of 16.1 BUN of 14, creatinine 0.47. Vancomycin trough has been low. Blood culture negative so far. DIAGNOSTIC IMPRESSION AND PLAN: Patient admitted to the hospital with a fever and back pain in this patient who did have history of L4 fracture status post surgical repair, now without any other clinical focus of infection. Suspicious likely for a lumbosacral spine infection for which an MRI has been ordered that we will wait for the results. Keep the patient on Unasyn and vancomycin to which the patient's fever seemed to have responded. Continue supportive care. MMODL / IJN: [id number] /
[2019-03-21] MEDS: VANCOMYCIN 1,750 MG in SODIUM CHLORIDE 0.9% 500 ML 500 ML IVPB SCH ×3 (00:48→16:20)
[2019-03-21] MEDS: SODIUM CHLORIDE 0.9% 1,000 ML IV SCH ×3 (05:07→22:42)
[2019-03-21] MEDS ORDERED: VANCOMYCIN TROUGH DUE 1 EACH MISC MISCELLANE ONE (07:00)
[2019-03-21] MEDS: HEPARIN SODIUM,PORCINE 5,000 UNIT/ML 1 ML VIAL SQ SCH ×3 (07:38→23:10)
[2019-03-21] MEDS: VORTIOXETINE HYDROBROMIDE 20 MG TABLET PO SCH (07:38)
[2019-03-21] MEDS: INSULIN ASPART (NovoLOG) 100 UNIT/ML VIAL SQ SCH ×4 (07:38→22:42)
[2019-03-21] MEDS: INSULIN DETEMIR (LEVEMIR) 100 UNIT/ML SYR SQ SCH (07:39)
[2019-03-21] MEDS: FENOFIBRATE 160 MG TAB PO SCH (07:39)
[2019-03-21] MEDS: BISOPROLOL 5 MG TAB PO SCH (07:39)
[2019-03-21] MEDS: buPROPion SR 100 MG TABLET.ER PO SCH ×2 (07:39→22:41)
[2019-03-21] MEDS: FAMOTIDINE 20 MG TAB PO SCH ×2 (07:39→22:42)
[2019-03-21 07:48] LABS: Glucose,Whole Blood 59 mg/dL (75-99)
[2019-03-21] MEDS: AMPICILLIN-SULBACTAM 3 GM in SODIUM CHLORIDE 0.9% 100 ML IVPB SCH ×3 (07:58→23:10)
[2019-03-21 08:03] LABS: Glucose,Whole Blood 65 mg/dL (75-99)
[2019-03-21 08:03] LABS: Glucose,Whole Blood 95 mg/dL (75-99)
--- NOTE | 2019-03-21 08:36 | P.PN ---
Progress Note - Text Progress Note Date: 03/21/19 Patient is a very pleasant 78-year-old female who is seen and examined at bedside for follow-up evaluation in regards to her low back pain. She was admitted on 03/18/2019 after increasing low back pain following a fall. Patient is having a history of an L4 vertebroplasty performed at [facility] November 2018. She states she has fallen twice since that time. She does live at home and has her nephew live with her. She has been using a walker to aid in ambulation. She has diffuse pain over her lower thoracic and lumbar spine. She does feel she has had some improvement of her pain [facility] She has been seen and examined by medicine, infectious disease, and pain management. She did have some episodes of low grade fever and an leukocytosis and because of this there was concern about possible infection lumbar spine. CT imaging of the lumbar spine did not show any obvious sign of infection or change as compared to previous study. Patient does admit to severe claustrophobia but is willing to proceed forward with a lumbar MRI as long she is able to receive medicine prior to her MRI. Nursing states the patient has had Ativan IV ordered by medicine to be administered prior to her lumbar MRI. MRI may be performed today. Patient continues to have generalized weakness in the bilateral lower extremities without particular weakness. She has not had significant change in her lower extremity weakness. She is currently on IV vancomycin and Unasyn empirically. A Corral catheter remains intact. Patient has a significant medical history including lung cancer with liver metastasis, hypertension, and 2 diabetes mellitus. Medicine initially began further workup as to the cause of her infection due to leukocytosis and low-grade fever. Medicine is also currently treating the patient for hypercalcemia. There is some concern her infection may be related to her metastatic lung cancer. Physical exam: Patient is awake, alert, and oriented 3 Vital signs stable Good chest excursion with deep inspiration and expiration Examination of lumbar spine reveals skin is intact with no abrasions, lacerations, or bruises; no erythema, purulence or signs of infection Significant pain with even light palpation over the lower thoracic and lumbar spines Dorsiflexion, plantarflexion, and extensor hallucis longus positive sustained bilaterally Lower extremity strength is generally weak throughout all range of motion of the bilateral lower extremities Patient is able to perform active range of motion in bilateral lower extremities but movements are significantly slow and are weaker with active range of motion against resistance No signs or symptoms of DVT; no calf pain No pain with internal and external rotation of the hips bilaterally Neurovascularly intact Pertinent studies: CT of the thoracic spine and lumbar spine performed on 03/18/2019 compared to previous imaging taken on 03/09/2019: Multilevel hypertrophic degenerative disc changes without significant disc space narrowing; no evidence of acute fracture within the thoracic lumbar spine; evidence of previous L4 vertebroplasty with approximately 15% compression fracture deformity; no evidence of thoracic paraspinal mass; no focal bone destruction; hepatic metastatic disease; right lower lobe infiltrate and pleural fluid consistent with tumor which is unchanged X-rays the lumbar spine taken on 03/18/2019: No evidence of acute fracture or subluxation; evidence of L4 vertebroplasty; multilevel degenerative disc changes; overall alignment appears to be adequately maintained; sclerosis in the posterior elements with facet arthropathy Assessment: Acute severe lower thoracic and lumbar back pain History of recent L4 vertebroplasty performed in November 2018 at [facility] Bilateral lower extremity weakness and deconditioning History of multiple falls Leukocytosis and low-grade fever Lung cancer metastatic to liver Hypertension Type 2 diabetes mellitus Hypercalcemia Plan: 1. Patient has been experiencing ongoing worsening pain at her thoracic and lumbar spine following the recent fall. She has a history of multiple falls since November 2018. She previously had an L4 kyphoplasty performed in November 2018 at [facility]. She continues to have ongoing bilateral extremity weakness which is generalized. She uses a walker to aid in ambulation. Upon presentation to the emergency department she was found to have leukocytosis with low-grade fever. CT of the thoracic and lumbar spine did not show obvious sign of infection. Patient has had some improvement of symptoms since her admission to the hospital. MRI of the lumbar spine has been ordered to help rule out the possibility of infection. Patient is currently planning to receive IV medication prior to her MRI for her severe claustrophobia. This MRI may be performed today. We discussed we will follow up with further evaluation and discuss possible treatment plans depending on the results of this lumbar MRI. Patient will be discussed in detail with Dr. Maxime Gonzalez. 2. Patient will continue to be seen and treated by multiple other medical providers including medicine, infectious disease, and pain management for her other medical diagnoses including lung cancer metastatic to liver, hypertension, type 2 diabetes mellitus, and hypercalcemia
[2019-03-21] MEDS ORDERED: CALCITONIN INJ 200 UNIT/ML (MDV) VIAL SQ SCH (09:00)
[2019-03-21 09:38] LABS: Parathyroid Hormone Intact 24.8 pg/mL (14.0-72.0)
[2019-03-21] MEDS: KETOROLAC 30 MG/ML 1 ML VIAL IVP PRN (10:38)
--- NOTE | 2019-03-21 11:01 | P.PN ---
Progress Note - Text Progress Note Date: 03/21/19 This is a 78-year-old lady with history of metastatic lung carcinoma and recent weakness in the lower extremities and back pain. The patient was taken comfortably when I saw her and I spoke with her nurse and her daughter in the room. It looks like her pain has been well-controlled with a combination of Toradol injections and oral [place]. The patient has been asking for [place] only once or twice a day even though it is available for her as frequently as 4 times a day if needed. The patient is scheduled to have an MRI on the spine and this afternoon. The patient service we'll sign off. Please do not hesitate to contact us if we can be of any help. Thank you for the consultation
[2019-03-21 11:32] LABS: Glucose,Whole Blood 168 mg/dL (75-99)
--- NOTE | 2019-03-21 15:38 | P.PN ---
Subjective 78-year-old female was admitted seconded to falls and severe back pain. Patient had a recent back surgery because of which are not available this was done at [facility] will have to may get medical records from that patient did well L8 subacute rehabilitation was using walker was getting physical therapy at home. Patient can use to have significant amount of pain patient is on Toradol pain management was consulted because of failure to liver enzymes obtain ultrasound of the gallbladder and liver which showed metastatic lesions patient does have lung cancer with metastases recently received chemotherapy. Patient can use to have fevers although source of infection is not clear UA is not significant CAT scan of the back with contrast did not show any significant abnormality I'll obtain consultation from spinal surgeon, patient does have significant metastatic disease in the liver from lung cancer, plan regarding her chemotherapy is unknown at this time we'll also consult oncology and we'll also consult infectious disease as source of infection is not clear. Her fever is not clear. Patient will be continued on broad-spectrum antibodies for now there is no evidence of ascending cholangitis at this time. Elevate liver enzymes are probably secondary to metastatic disease to the liver. Fever may be related to her cancer itself. 03/20/2019 Back pain is better controlled but patient continues to have febrile episodes a ssociated infection still not clear infectious disease and orthopedic surgery recommending a spinal MRI. Patient does have hypercalcemia continue with IV fluids as hypercalcemia calcitonin was ordered. PTH is pending. Possibility of her osseous metastasis. Discussed the patient patient is agreeable to get the MRI. Liver enzymes are bit better compared to yesterday. There is no cortical lithiasis a common but bile ductal dilatation. Continue on broad-spectrum antibiotics and infectious disease evaluated the patient patient's C-reactive protein is high 03/21/2019 Patient's fevers improved patient remains on Unasyn and vancomycin. Patient will undergo MRI today. Patient's back pain significantly improved Constitutional: As mentioned above Cardio vascular: denied any chest pain, palpitations Gastrointestinal denied any nausea vomiting Pulmonary: Denied any shortness of breath cough Neurologic denied any new focal deficits All inpatient medications were reviewed and appropriate changes in these medications as dictated in the interval history and assessment and plan. Objective - Vital Signs Vital signs: Vital Signs Temp 97.7 F 03/21/19 07:28 Pulse 62 03/21/19 07:28 Resp 16 03/21/19 07:28 BP 116/57 03/21/19 07:28 Pulse Ox 95 03/21/19 07:28 Intake & Output 03/20/19 03/21/19 03/21/19 18:59 06:59 18:59 Intake Total 1600 540 Output Total 1000 900 700 Balance -1000 700 -160 Intake: Intake, IV Titration 1600 Amount Sodium Chloride 0.9% 1, 1600 000 ml @ 100 mls/hr IV . Q10H SHADIA Rx#:[id number] Oral 540 Output: Urine 1000 900 700 Uretheral (Corral) 900 Other: Voiding Method Indwelling Catheter Indwelling Catheter Indwelling Catheter # Voids 2 - Exam HYSICAL EXAMINATION: GENERAL: The patient is alert and oriented x3, not in any acute distress. Well developed, well nourished. HEENT: Pupils are round and equally reacting to light. EOMI. No scleral icterus. No conjunctival pallor. Normocephalic, atraumatic. No pharyngeal erythema. No thyromegaly. CARDIOVASCULAR: S1 and S2 present. No murmurs, rubs, or gallops. PULMONARY: Chest is clear to auscultation, no wheezing or crackles. ABDOMEN: Soft, nontender, nondistended, normoactive bowel sounds. No palpable organomegaly. MUSCULOSKELETAL: No joint swelling or deformity. There is significant parasp inal tenderness in the whole of the lumbar spine EXTREMITIES: No cyanosis, clubbing, or pedal edema. NEUROLOGICAL: Gross neurological examination did not reveal any focal deficits. She does have significant bilateral lower limb muscle atrophy SKIN: No rashes. - Labs CBC & Chem 7: 03/19/19 06:54 03/20/19 06:49 Labs: Abnormal Lab Results - Last 24 Hours (Table) 03/20/19 03/20/19 03/20/19 Range/Units 06:59 17:10 20:35 POC Glucose (mg/dL) 172 H 202 H (75-99) mg/dL Vitamin D 25-Hydroxy 8.0 L (30.0-100.0) ng/mL 03/21/19 03/21/19 03/21/19 Range/Units 07:12 07:34 11:26 POC Glucose (mg/dL) 59 L 65 L 168 H (75-99) mg/dL Vitamin D 25-Hydroxy (30.0-100.0) ng/mL Microbiology - Last 24 Hours (Table) 03/18/19 10:50 Blood Culture - Preliminary Blood No Growth after 72 hours Assessment and Plan Plan: Fever and leukocytosis: Source of infection is not clear , probably secondary to metastatic lung cancer ultrasound of the gallbladder liver did not show any cholelithiasis is a possibility of ischemic colitis is elevated liver enzymes secondary to metastatic disease and the there is no evidence of abscess or paraspinal abscess in the lumbosacral spine computed tomography scan. Meantime we may need to start her on empiric antibiotics we'll start vancomycin and consider dose and Unasyn. Until we rule out any kind of infection. Infectious disease evaluated the patient. No more fevers at this time continue with broad- spectrum her buttocks vancomycin and Unasyn -Lung cancer with metastases to liver active and not in remission -Severe back pain and unable to take care of herself patient lives by herself and patient does have generalized deconditioning muscle atrophy. PT and OT evaluation patient may need placement -Hypertension patient is hypotensive hold off on any antiplatelet medications at this time -Depression -Type 2 diabetes mellitus -Patient will need formal neurologic DVT and GI prophylaxis
--- NOTE | 2019-03-21 15:49 | MR ---
EXAMINATION TYPE: MR lumbar spine wo/w con DATE OF EXAM: 03/21/2019 COMPARISON: CT spine 3 days ago. HISTORY: LBP, fever, hx of L4 vertebroplasty Nov 2018 TECHNIQUE: Multiplanar, multisequence images of the lumbar spine is performed without and with IV contrast, util izing 9 mL intravenous Gadavist FINDINGS: Sagittal images of the lumbar spine show vertebral body heights and alignment to remain sat isfactory. Low T1 and T2 signal from vertebroplasty L4 level is identified. Multilevel disc desiccati on is seen. There is persistent vacuum disc phenomenon with moderate to advanced disc space narrowing L5-S1 level. No large posterior disc herniations are seen on sagittal images. Bone marrow signal int ensity is maintained. No suspicious enhancement is seen. The conus medullaris is normal in position a nd signal ending superior L1 level. Axial images are noted suboptimal due to patient motion artifact related to claustrophobia. Axial elham ges at T12-L1 and L1-L2 levels show mild facet degenerative changes bilaterally. Axial images at L2-L3 level show mild/moderate facet degenerative changes bilaterally. Axial images at L3-L4 level show moderate facet degenerative changes and ligamentum flavum hypertroph y with some mild effacement of posterior lateral thecal sac. Bilateral neural foramina are patent. Axial images at L4-L5 level show moderate to advanced facet degenerative changes bilaterally. Spinal canal is preserved. Bilateral neural foramina are patent. Axial images at L5-S1 level show mild to moderate facet degenerative changes bilaterally. There is sm all posterior spur disc effacing left anterolateral thecal sac. Bilateral neural foramina are patent. No suspicious retroperitoneal findings are seen. IMPRESSION: Redemonstration of vertebroplasty L4 level. No suspicious enhancement to suggest discitis /osteomyelitis. No worrisome focal fluid collection noted.
[2019-03-21 17:06] LABS: Glucose,Whole Blood 167 mg/dL (75-99)
--- NOTE | 2019-03-21 17:47 | P.PN ---
Subjective Progress Note Date: 03/21/19 Principal diagnosis: Progressive weakness, falls In follow-up today patient is laying with her had at the foot of the bed, denies pain, anxious about procedure that she states she is having today. Family notices improvement in her cognition since admission, patient feels more alert and oriented. No fevers, nausea, pain Objective - Vital Signs Vital signs: Vital Signs Temp 98.5 F 03/21/19 15:39 Pulse 77 03/21/19 15:39 Resp 18 03/21/19 15:39 BP 111/51 03/21/19 15:39 Pulse Ox 91 L 03/21/19 15:39 Intake & Output 03/20/19 03/21/19 03/21/19 18:59 06:59 18:59 Intake Total 1600 540 Output Total 1000 900 700 Balance -1000 700 -160 Intake: Intake, IV Titration 1600 Amount Sodium Chloride 0.9% 1, 1600 000 ml @ 100 mls/hr IV . Q10H SHADIA Rx#:[id number] Oral 540 Output: Urine 1000 900 700 Uretheral (Corral) 900 Other: Voiding Method Indwelling Catheter Indwelling Catheter Indwelling Catheter # Voids 2 - Constitutional General appearance: Present: cooperative, no acute distress, obese - EENT Eyes: Present: anicteric sclerae, EOMI ENT: Present: hearing grossly normal - Respiratory Respiratory: right: dullness, left: CTA - Cardiovascular Rhythm: regular Heart sounds: normal: S1, S2 Abnormal Heart Sounds: Absent: systolic murmur, diastolic murmur, rub, S3 Ga llop, S4 Gallop, click, other - Peripheral edema leg Peripheral Edema: bilateral: None - Gastrointestinal General gastrointestinal: Present: normal bowel sounds, soft - Integumentary Integumentary: Present: pale - Neurologic Neurologic: Present: CNII-XII intact - Musculoskeletal Musculoskeletal: Present: generalized weakness - Psychiatric Psychiatric: Present: A&O x's 3, appropriate affect, intact judgment & insight - Labs CBC & Chem 7: 03/19/19 06:54 03/20/19 06:49 Labs: Abnormal Lab Results - Last 24 Hours (Table) 03/20/19 03/20/19 03/20/19 Range/Units 06:59 17:10 20:35 POC Glucose (mg/dL) 172 H 202 H (75-99) mg/dL Vitamin D 25-Hydroxy 8.0 L (30.0-100.0) ng/mL 03/21/19 03/21/19 03/21/19 Range/Units 07:12 07:34 11:26 POC Glucose (mg/dL) 59 L 65 L 168 H (75-99) mg/dL Vitamin D 25-Hydroxy (30.0-100.0) ng/mL 03/21/19 Range/Units 17:04 POC Glucose (mg/dL) 167 H (75-99) mg/dL Vitamin D 25-Hydroxy (30.0-100.0) ng/mL Microbiology - Last 24 Hours (Table) 03/18/19 10:50 Blood Culture - Preliminary Blood No Growth after 72 hours Assessment and Plan (1) Fall Current Visit: Yes Status: Acute Priority: High Code(s): W19.XXXA - UNSPE CIFIED FALL, INITIAL ENCOUNTER SNOMED Code(s): 3164916 (2) Weakness Current Visit: Yes Status: Acute Priority: High Code(s): R53.1 - WEAKNESS SNOMED Code(s): 48464673 (3) Lung cancer Current Visit: Yes Status: Chronic Priority: High Code(s): C34.90 - MALIGNANT NEOPLASM OF UNSP PART OF UNSP BRONCHUS OR LUNG SNOMED Code(s): 401860065 (4) Hypercalcemia Narrative/Plan: Improved with hydration. Parathyroid is within normal limits, vit D is low, suspect hypercalcemia of malignancy. No acute intervention at this time, will f/u and add bisphosphonate if appropriate. Current Visit: Yes Status: Acute Priority: High Code(s): E83.52 - HYPERCALCEMIA SNOMED Code(s): 41550054 Plan: Awaiting records from patient's Oncologist. Patient has a history of being treated for non-Hodgkin's lymphoma 6 years ago. Nov 2018 she was diagnosed with lung cancer, states she was due to start concurrent chemo/radiation-treatment for localized disease. She was in the doctor's office and after discussing the treatment plan, she fell when leaving the office and injured her back. Since that time patient has had a complicated course including surgery, physical therapy and then home. She has fallen 2 or 3 times in the last week. Patient's daughter states that she is picking up CDs of recent images. I'm waiting to speak to someone from the oncology office. I will follow up with the patient and her family tomorrow to let them know what the oncologist plan is.
[2019-03-21 18:44] LABS: Hemoglobin A1C 7.8 % (4.0-6.0)
[2019-03-21] MEDS ORDERED: INSULIN DETEMIR (LEVEMIR) 100 UNIT/ML SYR SQ SCH (21:00)
[2019-03-21 21:28] LABS: Glucose,Whole Blood 236 mg/dL (75-99)
--- NOTE | 2019-03-21 23:49 | PN ---
PROGRESS NOTE DATE OF SERVICE: 03/21/2019. REASON FOR FOLLOWUP: Fever. Concern for possible abdominal source lumbar diskitis. INTERVAL HISTORY: The patient is afebrile. The patient is currently breathing comfortably. Denies having any chest pain. No shortness of breath or cough. The back pain is currently controlled. No nausea or vomiting and no diarrhea. PHYSICAL EXAMINATION: Blood pressure is 119/51 with a pulse of 77, temperature 98.5. She is 91% on room air. General description is an elderly female lying in bed in no distress. Respiratory system: Unlabored breathing, clear to auscultation anteriorly. Heart S1, S2. Regular rate and rhythm. Abdomen soft, no tenderness. LABS: Patient blood culture has been negative. Urine culture negative. An MRI of the lumbosacral spine shows evidence of osteomyelitis or diskitis. DIAGNOSTIC IMPRESSION AND PLAN: Patient admitted to the hospital with fever. She did have intractable back pain with also elevated liver enzymes with concern for possible abdominal source diskitis. However that has been ruled out by negative MRI. We will discontinue the vancomycin keep the patient on Unasyn to cover for possible abdominal source and monitor clinical course closely. Continue supportive care. MMODL / IJN: [id number] /
[2019-03-22 07:22] LABS: Glucose,Whole Blood 157 mg/dL (75-99)
[2019-03-22] MEDS: FENOFIBRATE 160 MG TAB PO SCH (07:55)
[2019-03-22] MEDS: buPROPion SR 100 MG TABLET.ER PO SCH (07:55)
[2019-03-22] MEDS: HEPARIN SODIUM,PORCINE 5,000 UNIT/ML 1 ML VIAL SQ SCH (07:55)
[2019-03-22] MEDS: BISOPROLOL 5 MG TAB PO SCH (07:55)
[2019-03-22] MEDS: FAMOTIDINE 20 MG TAB PO SCH (07:55)
[2019-03-22] MEDS: VORTIOXETINE HYDROBROMIDE 20 MG TABLET PO SCH (07:55)
[2019-03-22 07:56] LABS: Basophils % (A) 0 %; Eosinophils # (A) 0.6 k/uL (0-0.7); Eosinophils % (A) 11 %; HCT 36.8 % (34.0-46.0); HGB 11.7 gm/dL (11.4-16.0); Hypochromasia Slight; Lymphocytes # (A) 0.5 k/uL (1.0-4.8); Lymphocytes % (A) 10 %; MCH 29.1 pg (25.0-35.0); MCHC 31.7 g/dL (31.0-37.0); MCV 91.6 fL (80.0-100.0); Mean Platelet Volume 7.4; Monocytes # (A) 0.3 k/uL (0-1.0); Monocytes % (A) 6 %; Neutrophils # (A) 3.8 k/uL (1.3-7.7); Neutrophils % (A) 71 %; Platelet Count 265 k/uL (150-450); RBC 4.02 m/uL (3.80-5.40); RDW 13.5 % (11.5-15.5); WBC 5.3 k/uL (3.8-10.6)
[2019-03-22] MEDS: AMPICILLIN-SULBACTAM 3 GM in SODIUM CHLORIDE 0.9% 100 ML IVPB SCH (07:56)
[2019-03-22] MEDS: INSULIN ASPART (NovoLOG) 100 UNIT/ML VIAL SQ SCH ×2 (07:57→14:39)
[2019-03-22 08:15] LABS: Anion Gap 3 mmol/L; Blood Urea Nitrogen 10 mg/dL (7-17); Calcium 10.1 mg/dL (8.4-10.2); Carbon Dioxide 32 mmol/L (22-30); Chloride 105 mmol/L (98-107); Glucose 149 mg/dL (74-99); Potassium 3.7 mmol/L (3.5-5.1); Sodium 140 mmol/L (137-145)
--- NOTE | 2019-03-22 08:38 | P.PN ---
Progress Note - Text Progress Note Date: 03/22/19 Patient is a very pleasant 78-year-old female who is seen and examined at bedside for follow-up evaluation in regards to her low back pain. She was admitted on 03/18/2019 after increasing low back pain following a fall. Patient is having a history of an L4 vertebroplasty performed at [facility] November 2018. She states she has fallen twice since that time. She does live at home and has her nephew live with her. She has been using a walker to aid in ambulation. She has diffuse pain over her lower thoracic and lumbar spine. She does feel she has had some improvement of her pain since her admission to the hospital and has had some improvement as compared to yesterday. She has been seen and examined by medicine, infectious disease, and pain management. She did have some episodes of low grade fever and an leukocytosis and because of this there was concern about possible infection lumbar spine. CT imaging of the lumbar spine did not show any obvious sign of infection or change as compared to previous study. MRI lumbar spine with and without contrast was performed , 03/21/2019, without any findings to suggest discitis/osteomyelitis. Patient continues to have generalized weakness in the bilateral lower extremities without particular weakness. She feels she has had some improvement as compared to yesterday. She has been able to stand at the bedside and move side to side with the assistance of therapy. She states her planning for transfer to the restroom today. She is currently on IV vancomycin and Unasyn empirically. A Corral catheter remains intact. Patient has a significant medical history including lung cancer with liver metastasis, hypertension, and 2 diabetes mellitus. Medicine initially began further workup as to the cause of her infection due to leukocytosis and low-grade fever. Medicine is also currently treating the patient for hypercalcemia. There is some concern her infection may be related to her metastatic lung cancer. Physical exam: Patient is awake, alert, and oriented 3 Vital signs stable Good chest excursion with deep inspiration and expiration Examination of lumbar spine reveals skin is intact with no abrasions, lacerations, or bruises; no erythema, purulence or signs of infection No significant pain with palpation over the lower thoracic and lumbar spines Dorsiflexion, plantarflexion, and extensor hallucis longus positive sustained bilaterally Lower extremity strength is generally weak throughout all range of motion of the bilateral lower extremities but has had some improvement as compared to yesterday Patient is able to perform active range of motion in bilateral lower extremities but movements are significantly slow and are weaker with active range of motion against resistance No signs or symptoms of DVT; no calf pain No pain with internal and external rotation of the hips bilaterally Neurovascularly intact Pertinent studies: MRI of the lumbar spine with and without contrast taken on 03/21/2019: Redemonstration of vertebroplasty at L4; no suspicious enhancement to suggest discitis/osteomyelitis; no worrisome focal fluid collection noted; lumbar facet arthropathy; L5-S1 advanced degenerative disc disease; multilevel disc desiccation CT of the thoracic spine and lumbar spine performed on 03/18/2019 compared to previous imaging taken on 03/09/2019: Multilevel hypertrophic degenerative disc changes without significant disc space narrowing; no evidence of acute fracture within the thoracic lumbar spine; evidence of previous L4 vertebroplasty with approximately 15% compression fracture deformity; no evidence of thoracic paraspinal mass; no focal bone destruction; hepatic metastatic disease; right lower lobe infiltrate and pleural fluid consistent with tumor which is unchanged X-rays the lumbar spine taken on 03/18/2019: No evidence of acute fracture or subluxation; evidence of L4 vertebroplasty; multilevel degenerative disc changes; overall alignment appears to be adequately maintained; sclerosis in the posterior elements with facet arthropathy Assessment: Acute severe lower thoracic and lumbar back pain History of recent L4 vertebroplasty performed in November 2018 at [facility] Lumbar facet arthropathy L5-S1 degenerative disc disease Bilateral lower extremity weakness and deconditioning History of multiple falls Leukocytosis and low-grade fever Lung cancer metastatic to liver Hypertension Type 2 diabetes mellitus Hypercalcemia Plan: 1. Patient has been discussed in detail with Dr. Maxime Gonzalez. Recent lumbar MRI imaging with and without contrast has been reviewed by myself and Dr. Maxime Gonzalez. Patient has been experiencing ongoing worsening pain at her thoracic and lumbar spine following the recent fall but has had improvement since her admission to the hospital and has had improvement today even as compared to yesterday. She has a history of multiple falls since November 2018. She previously had an L4 kyphoplasty performed in November 2018 at [facility]. She continues to have ongoing bilateral extremity weakness which is generalized but also feels this has improved as she has been able to stand at the bedside and move side to side. She uses a walker to aid in ambulation. Upon presentation to the emergency department she was found to have leukocytosis with low-grade fever. CT of the thoracic and lumbar spine did not show obvious sign of infection. An MRI of the lumbar spine with and without contrast did not show any evidence of osteomyelitis/discitis in no obvious sign of infection at her lumbar spine. At this time we will continue conservative treatment from an orthopedic spine standpoint. Patient has had improvement of her lower thoracic and lumbar back pain. She feels her strength has had some improvement during her admission as well. Reviewing the multiple imaging modalities is not show evidence of osteomyelitis/discitis or infection in her lumbar spine. We're not planning for surgical intervention at her thoracolumbar spine. At this time she may continue with conservative treatment. From an orthopedic spine standpoint, patient is clear for discharge. We will plan have her follow up in outpatient setting on as-needed basis. Patient has been discussed in detail with Dr. Maxime Gonzalez and he agrees with this plan. 2. Patient will continue to be seen and treated by multiple other medical providers including medicine, infectious disease, and pain management for her other medical diagnoses including lung cancer metastatic to liver, hypertension, type 2 diabetes mellitus, and hypercalcemia
[2019-03-22] MEDS ORDERED: INSULIN DETEMIR (LEVEMIR) 100 UNIT/ML SYR SQ SCH (09:00)
[2019-03-22 11:27] LABS: Glucose,Whole Blood 153 mg/dL (75-99)
[2019-03-22] MEDS: SODIUM CHLORIDE 0.9% 1,000 ML IV SCH (12:24)
--- NOTE | 2019-03-22 12:39 | P.DS ---
Providers Date of admission: 03/18/19 17:26 Attending physician: Yenni Agustin Consults: 03/18/19 16:50 Consult Physician Routine Consulting Provider: Syed Sinclair Consult Reason/Comments: Back pain Do you want consulting provider notified?: Yes 03/19/19 12:40 Consult Physician Routine Consulting Provider: Neeraj Saeed Consult Reason/Comments: Lung cancer Do you want consulting provider notified?: Yes Consult Physician Routine Consulting Provider: Nathan Gonzalez Consult Reason/Comments: Back pain Do you want consulting provider notified?: Yes 03/19/19 12:41 Consult Physician Routine Consulting Provider: Penny Tobin Consult Reason/Comments: fever, unknown orign Do you want consulting provider notified?: Yes Primary care physician: Jose [facility] Course: 78-year-old female was admitted seconded to falls and severe back pain. Patient had a recent back surgery because of which are not available this was done at [facility] will have to may get medical records from that patient did well L8 subacute rehabilitation was using walker was getting physical therapy at home. Patient can use to have significant amount of pain patient is on Toradol pain management was consulted because of failure to liver enzymes obtain ultrasound of the gallbladder and liver which showed metastatic lesions patient does have lung cancer with metastases recently received chemotherapy. Patient can use to have fevers although source of infection is not clear UA is not significant CAT scan of the back with contrast did not show any significant abnormality I'll obtain consultation from spinal surgeon, patient does have significant metastatic disease in the liver from lung cancer, plan regarding her chemotherapy is unknown at this time we'll also consult oncology and we'll also consult infectious disease as source of infection is not clear. Her fever is not clear. Patient will be continued on broad-spectrum antibodies for now there is no evidence of ascending cholangitis at this time. Elevate liver enzymes are probably secondary to metastatic disease to the liver. Fever may be related to her cancer itself. 03/20/2019 Back pain is better controlled but patient continues to have febrile episodes associated infection still not clear infectious disease and orthopedic surgery recommending a spinal MRI. Patient does have hypercalcemia continue with IV fluids as hypercalcemia calcitonin was ordered. PTH is pending. Possibility of her osseous metastasis. Discussed the patient patient is agreeable to get the MRI. Liver enzymes are bit better compared to yesterday. There is no cortical lithiasis a common but bile ductal dilatation. Continue on broad-spectrum antibiotics and infectious disease evaluated the patient patient's C-reactive protein is high 03/21/2019 Patient's fevers improved patient remains on Unasyn and vancomycin. Patient will undergo MRI today. Patient's back pain significantly improved 03/22/2019 Patient had an MRI of the back which did not show any infection did show previous surgical changes. Source of the his fever is not clear probably related to her lung cancer itself discussed with infectious disease is recommending Augmentin for 1 week.. Patient is doing much better today.HYSICAL EXAMINATION: Physical exam GENERAL: The patient is alert and oriented x3, not in any acute distress. Well developed, well nourished. HEENT: Pupils are round and equally reacting to light. EOMI. No scleral icterus. No conjunctival pallor. Normocephalic, atraumatic. No pharyngeal erythema. No thyromegaly. CARDIOVASCULAR: S1 and S2 present. No murmurs, rubs, or gallops. PULMONARY: Chest is clear to auscultation, no wheezing or crackles. ABDOMEN: Soft, nontender, nondistended, normoactive bowel sounds. No palpable organomegaly. MUSCULOSKELETAL: No joint swelling or deformity. There is significant paraspinal tenderness in the whole of the lumbar spine EXTREMITIES: No cyanosis, clubbing, or pedal edema. NEUROLOGICAL: Gross neurological examination did not reveal any focal deficits. She does have significant bilateral lower limb muscle atrophy SKIN: No rashes. Assessment and Plan Plan: Fever and leukocytosis: Source of infection is not clear , MRI did not reveal any discitis or paraspinal abscess. Patient was discharged on Augmentin fever is probably secondary to lung cancer itself source of infection is not clear but improved with Unasyn and patient will be discharged on Augmentin for 7 days -Lung cancer with metastases to liver active and not in remission -Severe back pain and unable to take care of herself patient lives by herself and patient does have generalized deconditioning muscle atrophy. Patient will be discharged to subacute rehabilitation -Hypertension patient is hypotensive hold off on any antiplatelet medications at this time -Depression -Type 2 diabetes mellitus Patient Condition at Discharge: Fair Plan - Discharge Summary New Discharge Prescriptions: New Amoxic-Pot Clav 875-125Mg [Augmentin 875-125] 1 tab PO Q12HR #14 tablet Insulin Detemir (Levemir) [Levemir] 60 unit SQ QAM syr Insulin Detemir (Levemir) [Levemir] 50 unit SQ HS syr Etodolac [Lodine] 400 mg PO BID PRN #12 tablet PRN Reason: Pain HYDROcodone/APAP 5-325MG [[place] 5-325] 1 each PO Q6HR PRN #10 tab PRN Reason: Moderate Pain Polyethylene Glycol 3350 [Miralax] 17 gm PO DAILY PRN #15 packet PRN Reason: Constipation Continue Vortioxetine Hydrobromide [Trintellix] 20 mg PO DAILY buPROPion HCL [Wellbutrin SR] 200 mg PO BID Mirabegron [Myrbetriq] 50 mg PO DAILY Bisoprolol [Zebeta] 5 mg PO DAILY Fenofibrate Nanocrystallized [Tricor] 145 mg PO DAILY Albuterol Inhaler [Ventolin Hfa Inhaler] 2 puff INHALATION RT-Q6H PRN PRN Reason: Wheezing Discontinued Insulin Glargine [Lantus] 70 unit SQ QAM Irbesartan [Avapro] 300 mg PO DAILY Insulin Glargine [Lantus] 60 unit SQ HS Discharge Medication List Mirabegron [Myrbetriq] 50 mg PO DAILY 09/14/18 [History] Vortioxetine Hydrobromide [Trintellix] 20 mg PO DAILY 09/14/18 [History] buPROPion HCL [Wellbutrin SR] 200 mg PO BID 09/14/18 [History] Bisoprolol [Zebeta] 5 mg PO DAILY 03/09/19 [History] Fenofibrate Nanocrystallized [Tricor] 145 mg PO DAILY 03/09/19 [History] Albuterol Inhaler [Ventolin Hfa Inhaler] 2 puff INHALATION RT-Q6H PRN 03/18/19 [History] Amoxic-Pot Clav 875-125Mg [Augmentin 875-125] 1 tab PO Q12HR #14 tablet 03/22/19 [Rx] Etodolac [Lodine] 400 mg PO BID PRN #12 tablet 03/22/19 [Rx] HYDROcodone/APAP 5-325MG [[place] 5-325] 1 each PO Q6HR PRN #10 tab 03/22/19 [Rx] Insulin Detemir (Levemir) [Levemir] 50 unit SQ HS syr 03/22/19 [Rx] Insulin Detemir (Levemir) [Levemir] 60 unit SQ QAM syr 03/22/19 [Rx] Polyethylene Glycol 3350 [Miralax] 17 gm PO DAILY PRN #15 packet 03/22/19 [Rx] Follow up Appointment(s)/Referral(s): Jose Balderas MD [Primary Care Provider] - 1-2 days (Patient to call office to schedule appointment per office) Main Barrios PAC [PHYSICIAN [facility]] - As Needed (Patient may follow-up with Main Barrios PA-C or Dr. Maxime Gonzalez at [facility] on an as-needed basis following discharge. ) Discharge Disposition: TRANSFER TO SNF/ECF
--- NOTE | 2019-03-22 13:54 | P.PN ---
Subjective Progress Note Date: 03/22/19 Principal diagnosis: Progressive weakness, falls In follow-up patient is sitting up at the bedside eating her lunch, back pain is controlled at this time, denies chest pain, nausea, difficulty in breathing. She is weak, she requires two-person assist to get to the bedside commode. Objective - Vital Signs Vital signs: Vital Signs Temp 98.2 F 03/22/19 07:54 Pulse 66 03/22/19 07:54 Resp 18 03/22/19 07:54 BP 145/60 03/22/19 07:54 Pulse Ox 96 03/22/19 07:54 Intake & Output 03/21/19 03/22/19 03/22/19 18:59 06:59 18:59 Intake Total 1080 1350 Output Total 700 3380 700 Balance 380 Intake: Intake, IV Titration 900 Amount Ampicillin-Sulbactam 3 gm 100 In Sodium Chloride 0.9% 100 ml @ 200 mls/hr IVPB Q8HR SHADIA Rx#:[id number] Sodium Chloride 0.9% 1, 800 000 ml @ 100 mls/hr IV . Q10H SHADIA Rx#:[id number] Oral 1080 450 Output: Urine 700 3380 700 Uretheral (Corral) 2400 Other: Voiding Method Indwelling Catheter Indwelling Catheter # Voids 1 - Constitutional General appearance: Present: cooperative, no acute distress, obese - Respiratory Respiratory: bilateral: diminished - Cardiovascular Rhythm: regular Heart sounds: normal: S1, S2 - Gastrointestinal General gastrointestinal: Present: normal bowel sounds, soft - Integumentary Integumentary: Present: pale - Neurologic Neurologic: Present: CNII-XII intact - Musculoskeletal Musculoskeletal: Present: generalized weakness - Psychiatric Psychiatric: Present: A&O x's 3, appropriate affect, intact judgment & insight - Labs CBC & Chem 7: 03/22/19 07:12 03/22/19 07:12 Labs: Abnormal Lab Results - Last 24 Hours (Table) 03/21/19 03/21/19 03/21/19 Range/Units 08:24 17:04 21:08 Lymphocytes # (1.0-4.8) k/uL Carbon Dioxide (22-30) mmol/L Creatinine (0.52-1.04) mg/dL Glucose (74-99) mg/dL POC Glucose (mg/dL) 167 H 236 H (75-99) mg/dL Hemoglobin A1c 7.8 H (4.0-6.0) % 03/22/19 03/22/19 03/22/19 Range/Units 07:06 07:12 07:12 Lymphocytes # 0.5 L (1.0-4.8) k/uL Carbon Dioxide 32 H (22-30) mmol/L Creatinine 0.41 L (0.52-1.04) mg/dL Glucose 149 H (74-99) mg/dL POC Glucose (mg/dL) 157 H (75-99) mg/dL Hemoglobin A1c (4.0-6.0) % 03/22/19 Range/Units 11:25 Lymphocytes # (1.0-4.8) k/uL Carbon Dioxide (22-30) mmol/L Creatinine (0.52-1.04) mg/dL Glucose (74-99) mg/dL POC Glucose (mg/dL) 153 H (75-99) mg/dL Hemoglobin A1c (4.0-6.0) % Microbiology - Last 24 Hours (Table) 03/18/19 10:50 Blood Culture - Preliminary Blood No Growth after 72 hours Assessment and Plan (1) Fall Narrative/Plan: Agree with rehabilitation to strengthen patient, currently she is a 2 person assist to the bedside commode Current Visit: Yes Status: Acute Priority: High Code(s): W19.XXXA - UNSPECIFIED FALL, INITIAL ENCOUNTER SNOMED Code(s): 3474316 (2) Weakness Narrative/Plan: Agree with discharged to rehabilitation. Need for rehabilitation was discussed with patient and niece Current Visit: Yes Status: Acute Priority: High Code(s): R53.1 - WEAKNESS SNOMED Code(s): 02904716 (3) Lung cancer Narrative/Plan: Limited stage disease, patient was to go on maintenance therapy unfortunately, she has been unable to do so due to frequent hospitalizations posterior back injury. Patient now has what is looking like progressive disease in the liver. Per patient's primary oncologist biopsy of the liver has been requested. This will be done as an outpatient post rehab. Current Visit: Yes Status: Chronic Priority: High Code(s): C34.90 - MALIGNANT NEOPLASM OF UNSP PART OF UNSP BRONCHUS OR LUNG SNOMED Code(s): 456588761 (4) Hypercalcemia Narrative/Plan: Improved with hydration. Parathyroid is within normal limits, vit D is low, suspect hypercalcemia of malignancy, one dose of Aredia ordered. Current Visit: Yes Status: Acute Priority: High Code(s): E83.52 - HYPERCALCEMIA SNOMED Code(s): 83633741 Plan: Correction to previous documentation of patient's lung cancer. Patient was diagnosed with limited stage non-small cell lung cancer and received treatment for that with chemotherapy and radiation, due to start imfinzi therapy, maintenance for limited stage lung cancers that are not amenable to surgical intervention. She was due to start this in November 2017. At that time she had the fall, back surgery and extended rehabilitation stay, which gets her to present (recent falls, back pain, weakness). Workup did not indicate metastatic disease in the bones. Incidentally, liver lesions were mentioned in the spinal imaging reports. According to patient's primary oncologist she had previous liver abnormalities, which were biopsied and negative. Family member has brought the CD with the request of Dr. Huffman to compare the liver for similar findings versus progression. On review with interventional radiologist, there is increase in lesions in the liver. It is felt that there is a option for biopsy percutaneously. Primary oncologist would like liver biopsy. Earliest biopsy dated available is 2 days from now. Patient is due to go to rehabilitation. Case was discussed with liaison for [facility], recommendation is for the patient to complete her antibiotic course and rehabilitation, the liver biopsy will be scheduled outpatient. Need to schedule this biopsy has been reinforced with the patient, her niece and will be placed in discharge notes to [facility]. Patient had numerous questions about why she was unable to receive treatment for her cancer while she is rehabilitating. It was reinforced that an individual who is already weakened would derive little to no benefit from being treated for cancer as it would only exacerbate her already weakened state. We reviewed the concerns for metastatic disease in the liver. Await biopsy. Pathology MUST go to patient's primary oncologist. This too was reinforced with patient and her niece to request that info be sent. Dr. Huffman contact information [phone] 1 hour spent counseling and coordinating care. Case was discussed with patient's primary oncologist Dr. Huffman [facility], discussed with the RN, liaison for [facility], and Interventional Radiology.
[2019-03-22] MEDS ORDERED: SODIUM CHLORIDE 0.9% 250 ML with PAMIDRONATE 30 MG IV ONE ×2 (14:00)
--- NOTE | 2019-03-22 15:28 | PN ---
PROGRESS NOTE DATE OF SERVICE: 03/22/2019 REASON FOR FOLLOWUP: Fever, possible abdominal source. INTERVAL HISTORY: The patient is currently afebrile. Patient has been breathing comfortably. Denies having any chest pain. No cough. The back pain is current improved. No nausea, no vomiting and no diarrhea. PHYSICAL EXAMINATION: Blood pressure 145/60 with a pulse of 66, temperature 98.2, she is 96% on room air. General description is an elderly female, lying in bed in no distress. RESPIRATORY SYSTEM: Unlabored breathing, clear to auscultation anteriorly. HEART: S1, S2. Regular rate and rhythm. ABDOMEN: Soft, no tenderness. LABS: Hemoglobin 11.1, white count 5.3, BUN of 10, creatinine 0.41. Blood cultures have been negative. Urine is negative. DIAGNOSTIC IMPRESSION AND PLAN: Patient with a fever initial concern for possible diskitis. However, MRI of the lumbosacral spine did not show any evidence of diskitis, osteomyelitis. Patient's fever resolved. White count normalized and urine cultures negative. Patient's antibiotic was switched to a short course of oral Augmentin for close outpatient followup. Family present at bedside. Questions cultures. MMODL / IJN: [id number] /
[2019-03-22 16:30] VITALS: BP 106/55; PULSE 72; RESP 16; TEMP 98.5
== END 2019-03-22 16:14 | DRG 868 ==
LOC: EC 10:11 → 1SOBS 16:12 → OBSVTOIN 17:26 → 4SSUR 18:15
PROVIDERS: ADMIT Internal Medicine; ATTEND Internal Medicine
DX: B99.9 Unspecified infectious disease (principal); C34.90 Malignant neoplasm of unspecified part of unspecified bronchus or lung; C78.7 Secondary malignant neoplasm of liver and intrahepatic bile duct; I95.9 Hypotension, unspecified; E83.52 Hypercalcemia; R50.81 Fever presenting with conditions classified elsewhere; E11.9 Type 2 diabetes mellitus without complications; D72.829 Elevated white blood cell count, unspecified; F32.9 Major depressive disorder, single episode, unspecified; F40.240 Claustrophobia; I10 Essential (primary) hypertension; J45.909 Unspecified asthma, uncomplicated; M51.37 Other intervertebral disc degeneration, lumbosacral region; M46.96 Unspecified inflammatory spondylopathy, lumbar region; R29.6 Repeated falls; M54.6 Pain in thoracic spine; I44.0 Atrioventricular block, first degree; M54.5 Low back pain; M62.562 Muscle wasting and atrophy, not elsewhere classified, left lower leg; M62.561 Muscle wasting and atrophy, not elsewhere classified, right lower leg; Z79.4 Long term (current) use of insulin; Z79.899 Other long term (current) drug therapy; Z91.81 History of falling; Z90.710 Acquired absence of both cervix and uterus; Z87.891 Personal history of nicotine dependence; Z91.040 Latex allergy status; Z92.21 Personal history of antineoplastic chemotherapy; Z85.72 Personal history of non-Hodgkin lymphomas; Z82.49 Family history of ischemic heart disease and other diseases of the circulatory system
CPT/HCPCS: 36415; 71046; 72100; 72129; 72132; 72158; 72170; 76705; 80048; 80053; 80202; 81003; 82306; 83036; 83605; 83970; 84484; 85025; 85027; 85610; 85652; 85730; 86140; 87040; 87086; 93005; 96365; 96368; 96375; 99285

== ENCOUNTER 2019-04-04 19:32 | Inpatient (IN) | payer MEDICARE ==
[2019-04-04] MEDS ORDERED: SODIUM CHLORIDE 0.9% 500 ML 500 ML IV STA ×2 (19:34→21:03)
[2019-04-04] MEDS ORDERED: SODIUM CHLORIDE 0.9% 1,000 ML IV STA ×3 (19:34→21:03)
--- NOTE | 2019-04-04 19:35 | ED ---
Recheck HPI - General Stated Complaint: Abnormal Labs Time Seen by Provider: 04/04/19 19:34 Source: RN notes reviewed, old records reviewed - History of Present Illness Initial Comments: This is a 78-year-old female who is a poor strain, history of taking from family and patient's chart and EMS, patient sent in for evaluation of abnormal lab tests, hypercalcemia Complaint: abnormal lab -: unknown Returns Today for: Called Because of Abnormal Lab/Test Context: called for abnormal lab result Associated Symptoms: none - Related Data Home Medications Medication Instructions Recorded Confirmed RX: Mirabegron [Myrbetriq] 50 mg PO DAILY 09/14/18 04/04/19 RX: Vortioxetine Hydrobromide 20 mg PO DAILY 09/14/18 04/04/19 [Trintellix] RX: buPROPion HCL [Wellbutrin SR] 200 mg PO BID 09/14/18 04/04/19 RX: Bisoprolol [Zebeta] 5 mg PO DAILY 03/09/19 04/04/19 RX: Fenofibrate Nanocrystallized 145 mg PO DAILY 03/09/19 04/04/19 [Tricor] RX: Albuterol Inhaler [Ventolin 2 puff INHALATION RT-Q6H PRN 03/18/19 04/04/19 Hfa Inhaler] Cholecalciferol (Vitamin D3) 2,000 unit PO DAILY 04/04/19 04/04/19 [Vitamin D3] Ciprofloxacin HCl [Cipro] 250 mg PO BID 04/04/19 04/04/19 Insulin Glargine,Hum.rec.anlog 50 unit SQ HS@2100 04/04/19 04/04/19 [Basaglar Kwikpen U-100] Insulin Glargine,Hum.rec.anlog 60 unit SQ DAILY@0900 04/04/19 04/04/19 [Basaglar Kwikpen U-100] Previous Rx's Medication Instructions Recorded Polyethylene Glycol 3350 [Miralax] 17 gm PO DAILY PRN #15 packet 03/22/19 RX: Etodolac [Lodine] 400 mg PO BID PRN #12 tablet 03/22/19 RX: HYDROcodone/APAP 5-325MG 1 each PO Q6HR PRN #10 tab 03/22/19 [[place] 5-325] Allergies Allergy/AdvReac Type Severity Reaction Status Date / Time amlodipine [From [facility]] Allergy Unknown Verified 04/04/19 19:50 latex Allergy Rash/Hives Verified 03/18/19 10:38 Review of Systems ROS Statement: Those systems with pertinent positive or pertinent negative responses have been documented in the HPI. ROS Other: All systems not noted in ROS Statement are negative. Past Medical History Past Medical History: Asthma, Cancer, Diabetes Mellitus Additional Past Medical History / Comment(s): lung cancer History of Any Multi-Drug Resistant Organisms: None Reported Past Surgical History: Back Surgery, Hysterectomy Past Anesthesia/Blood Transfusion Reactions: No Reported Reaction Smoking Status: Former smoker - Past Family History Mother Family Medical History: Hypertension General Exam General appearance: alert, in no apparent distress Head exam: Present: atraumatic, normocephalic, normal inspection Eye exam: Present: normal appearance, PERRL, EOMI. Absent: scleral icterus, conjunctival injection, periorbital swelling ENT exam: Present: normal exam, mucous membranes moist Neck exam: Present: normal inspection. Absent: tenderness, meningismus, lymphadenopathy Respiratory exam: Present: normal lung sounds bilaterally. Absent: respiratory distress, wheezes, rales, rhonchi, stridor Cardiovascular Exam: Present: regular rate, normal rhythm, normal heart sounds. Absent: systolic murmur, diastolic murmur, rubs, gallop, clicks GI/Abdominal exam: Present: soft, normal bowel sounds. Absent: distended, tenderness, guarding, rebound, rigid Extremities exam: Present: normal inspection, full ROM, normal capillary refill. Absent: tenderness, pedal edema, joint swelling, calf tenderness Back exam: Present: normal inspection Neurological exam: Present: alert, oriented X3, CN II-XII intact Psychiatric exam: Present: normal affect, normal mood Skin exam: Present: warm, dry, intact, normal color. Absent: rash Course Vital Signs 04/04/19 19:43 Temperature 98.4 F Pulse Rate 72 Respiratory 16 Rate Blood Pressure 149/100 O2 Sat by Pulse 98 Oximetry - Reevaluation(s) Reevaluation #1: 04/04/19 21:09 Medical records reviewed Reevaluation #2: 04/04/19 21:09 Patient's calcium does and is significantly elevated, currently we'll do hydration and one subcu bisphosphonate Medical Decision Making - Medical Decision Making 78 female to the ED c/o abnormal abscess, hypercalcemia. Patient has no complaints, will admit for hydration, patient is scheduled for hospice evaluation will have evaluation and the inpatient setting tomorrow - Lab Data Result diagrams: 04/04/19 19:43 04/04/19 19:43 Lab Results 04/04/19 04/04/19 Range/Units 19:43 19:43 WBC 11.1 H (3.8-10.6) k/uL RBC 4.27 (3.80-5.40) m/uL Hgb 12.3 (11.4-16.0) gm/dL Hct 38.3 (34.0-46.0) % MCV 89.8 (80.0-100.0) fL MCH 28.9 (25.0-35.0) pg MCHC 32.2 (31.0-37.0) g/dL RDW 13.7 (11.5-15.5) % Plt Count 384 (150-450) k/uL Neutrophils % 82 % Lymphocytes % 8 % Monocytes % 5 % Eosinophils % 4 % Basophils % 1 % Neutrophils # 9.1 H (1.3-7.7) k/uL Lymphocytes # 0.8 L (1.0-4.8) k/uL Monocytes # 0.6 (0-1.0) k/uL Eosinophils # 0.4 (0-0.7) k/uL Basophils # 0.1 (0-0.2) k/uL Sodium 137 (137-145) mmol/L Potassium 3.2 L (3.5-5.1) mmol/L Chloride 101 (98-107) mmol/L Carbon Dioxide 32 H (22-30) mmol/L Anion Gap 4 mmol/L BUN 13 (7-17) mg/dL Creatinine 0.55 (0.52-1.04) mg/dL Est GFR (CKD-EPI)AfAm >90 (>60 ml/min/1.73 sqM) Est GFR (CKD-EPI)NonAf >90 (>60 ml/min/1.73 sqM) Glucose 59 L (74-99) mg/dL Calcium 13.7 H* (8.4-10.2) mg/dL Ionized Calcium Ruthy 7.7 H* (4.5-5.3) mg/dL Phosphorus 2.7 (2.5-4.5) mg/dL Magnesium 1.4 L (1.6-2.3) mg/dL Total Bilirubin 1.1 (0.2-1.3) mg/dL AST 81 H (14-36) U/L ALT 51 (9-52) U/L Alkaline Phosphatase 172 H (38-126) U/L Total Protein 6.1 L (6.3-8.2) g/dL Albumin 3.0 L (3.5-5.0) g/dL Disposition Clinical Impression: Hypercalcemia Disposition: ADMITTED IP TO THIS HOSP Condition: Fair Is patient prescribed a controlled substance at d/c from ED?: No Referrals: Amrit Laguerre MD [Primary Care Provider] - 1-2 days
[2019-04-04 19:57] LABS: Basophils # (A) 0.1 k/uL (0-0.2); Basophils % (A) 1 %; Eosinophils # (A) 0.4 k/uL (0-0.7); Eosinophils % (A) 4 %; HCT 38.3 % (34.0-46.0); HGB 12.3 gm/dL (11.4-16.0); Lymphocytes # (A) 0.8 k/uL (1.0-4.8); Lymphocytes % (A) 8 %; MCH 28.9 pg (25.0-35.0); MCHC 32.2 g/dL (31.0-37.0); MCV 89.8 fL (80.0-100.0); Mean Platelet Volume 7.4; Monocytes # (A) 0.6 k/uL (0-1.0); Monocytes % (A) 5 %; Neutrophils # (A) 9.1 k/uL (1.3-7.7); Neutrophils % (A) 82 %; Platelet Count 384 k/uL (150-450); RBC 4.27 m/uL (3.80-5.40); RDW 13.7 % (11.5-15.5); WBC 11.1 k/uL (3.8-10.6)
[2019-04-04 21:01] LABS: ALT 51 U/L (9-52); AST 81 U/L (14-36); Alkaline Phosphatase 172 U/L (38-126); Anion Gap 4 mmol/L; Blood Urea Nitrogen 13 mg/dL (7-17); Carbon Dioxide 32 mmol/L (22-30); Chloride 101 mmol/L (98-107); Glucose 59 mg/dL (74-99); Magnesium 1.4 mg/dL (1.6-2.3); Phosphorus 2.7 mg/dL (2.5-4.5); Potassium 3.2 mmol/L (3.5-5.1); Sodium 137 mmol/L (137-145); Total Bilirubin 1.1 mg/dL (0.2-1.3); Total Protein 6.1 g/dL (6.3-8.2)
[2019-04-04 21:02] LABS: Calcium 13.7 mg/dL (8.4-10.2)
[2019-04-04 21:03] LABS: Ionized Calcium 7.7 mg/dL (4.5-5.3)
[2019-04-04] MEDS ORDERED: POTASSIUM BICARBONATE/CIT AC 20 MEQ TABLET.EFF PO ONE (21:05)
[2019-04-04] MEDS ORDERED: DENOSUMAB 60 MG/ML 1 ML SYRINGE SQ ONE (21:05)
[2019-04-04 23:43] VITALS: BMI 31.2
[2019-04-05] MEDS ORDERED: ENOXAPARIN 40 MG/0.4 ML SYRINGE SQ SCH (09:00)
[2019-04-05 11:55] VITALS: BP 112/63; PULSE 79; RESP 18; TEMP 97.8
[2019-04-05] MEDS ORDERED: HYDROcodone/APAP 5-325MG 1 EACH TAB PO PRN (14:36)
--- NOTE | 2019-04-05 14:50 | P.HPIM ---
History of Present Illness 78-year-old pleasant female was sent in because of hypercalcemia. Patient has diffuse pain significant pain in the back. Patient was recently treated for paraspinal abscess. Patient was admitted for hypercalcemia, does have advanced lung cancer metastatic no many treatment options her left prognosis is extremely poor because of which hospice was discussed the with the patient and family members by hospice services, patient and family decided on hospice at nursing facility. Patient will be discharged today back to retirement with hospice. Review of Systems REVIEW OF SYSTEMS: CONSTITUTIONAL: No fever, no malaise, no fatigue. HEENT: No recent visual problems or hearing problems. Denied any sore throat. CARDIOVASCULAR: No chest pain, orthopnea, PND, no palpitations, no syncope. PULMONARY: No shortness of breath, no cough, no hemoptysis. GASTROINTESTINAL: No diarrhea, no nausea, no vomiting, no abdominal pain. NEUROLOGICAL: No headaches, no weakness, no numbness. HEMATOLOGICAL: Denies any bleeding or petechiae. GENITOURINARY: Denies any burning micturition, frequency, or urgency. MUSCULOSKELETAL/RHEUMATOLOGICAL: Severe back pain ENDOCRINE: Denies any polyuria or polydipsia. The rest of the 14-point review of systems is negative. Past Medical History Past Medical History: Asthma, Cancer, Diabetes Mellitus Additional Past Medical History / Comment(s): lung cancer History of Any Multi-Drug Resistant Organisms: None Reported Past Surgical History: Back Surgery, Hysterectomy Past Anesthesia/Blood Transfusion Reactions: No Reported Reaction Past Psychological History: Depression Smoking Status: Former smoker Past Alcohol Use History: None Reported Past Drug Use History: None Reported - Past Family History Mother Family Medical History: Hypertension Medications and Allergies Home Medications Medication Instructions Recorded Confirmed Type Vortioxetine Hydrobromide 20 mg PO DAILY 09/14/18 04/04/19 History [Trintellix] buPROPion HCL [Wellbutrin SR] 200 mg PO BID 09/14/18 04/04/19 History Bisoprolol [Zebeta] 5 mg PO DAILY 03/09/19 04/04/19 History Albuterol Inhaler [Ventolin Hfa 2 puff INHALATION RT-Q6H PRN 03/18/19 04/04/19 History Inhaler] Etodolac [Lodine] 400 mg PO BID PRN #12 tablet 03/22/19 04/04/19 Rx HYDROcodone/APAP 5-325MG [[place] 1 each PO Q6HR PRN #10 tab 03/22/19 04/04/19 Rx 5-325] Polyethylene Glycol 3350 [Miralax] 17 gm PO DAILY PRN #15 packet 03/22/19 04/04/19 Rx Insulin Glargine,Hum.rec.anlog 50 unit SQ HS@2100 04/04/19 04/04/19 History [Basaglar Kwikpen U-100] Insulin Glargine,Hum.rec.anlog 60 unit SQ DAILY@0900 04/04/19 04/04/19 History [Basaglar Kwikpen U-100] Allergies Allergy/AdvReac Type Severity Reaction Status Date / Time amlodipine [From [facility]] Allergy Unknown Verified 04/04/19 19:50 latex Allergy Rash/Hives Verified 03/18/19 10:38 Physical Exam Vitals: Vital Signs Temp Pulse Pulse Resp BP BP Pulse Ox 04/05/19 11:54 97.8 F 79 18 112/63 99 04/05/19 05:33 98.0 F 75 16 143/66 99 04/04/19 23:00 98.0 F 83 16 157/77 97 04/04/19 22:44 67 18 178/108 99 04/04/19 22:40 99.1 F 04/04/19 19:43 98.4 F 72 16 149/100 98 Intake and Output 04/04/19 04/05/19 04/05/19 22:59 06:59 14:59 Intake Total 600 Balance 600 Intake: Intake, IV Titration 600 Amount Sodium Chloride 0.9% 1, 600 000 ml @ 100 mls/hr IV . Q10H STA Rx#:[id number] Other: Voiding Method Incontinent Incontinent # Voids 2 Weight 90.718 kg PHYSICAL EXAMINATION: GENERAL: The patient is alert and oriented x3, patient is in distress because of back pain. Well developed, well nourished. HEENT: Pupils are round and equally reacting to light. EOMI. No scleral icterus. No conjunctival pallor. Normocephalic, atraumatic. No pharyngeal erythema. No thyromegaly. CARDIOVASCULAR: S1 and S2 present. No murmurs, rubs, or gallops. PULMONARY: Chest is clear to auscultation, no wheezing or crackles. ABDOMEN: Soft, nontender, nondistended, normoactive bowel sounds. No palpable organomegaly. MUSCULOSKELETAL: No joint swelling or deformity. EXTREMITIES: No cyanosis, clubbing, or pedal edema. NEUROLOGICAL: Gross neurological examination did not reveal any focal deficits. SKIN: No rashes. Results CBC & Chem 7: 04/04/19 19:43 04/04/19 19:43 Labs: Abnormal Lab Results - Last 24 Hours (Table) 04/04/19 04/04/19 Range/Units 19:43 19:43 WBC 11.1 H (3.8-10.6) k/uL Neutrophils # 9.1 H (1.3-7.7) k/uL Lymphocytes # 0.8 L (1.0-4.8) k/uL Potassium 3.2 L (3.5-5.1) mmol/L Carbon Dioxide 32 H (22-30) mmol/L Glucose 59 L (74-99) mg/dL Calcium 13.7 H* (8.4-10.2) mg/dL Ionized Calcium Ruthy 7.7 H* (4.5-5.3) mg/dL Magnesium 1.4 L (1.6-2.3) mg/dL AST 81 H (14-36) U/L Alkaline Phosphatase 172 H (38-126) U/L Total Protein 6.1 L (6.3-8.2) g/dL Albumin 3.0 L (3.5-5.0) g/dL Thrombosis Risk Factor Assmnt - Choose All That Apply Any of the Below Risk Factors Present?: Yes Each Factor Represents 1 point: Obesity (BMI >25) Other Risk Factors: Yes Each Risk Factor Represents 2 Points: Malignancy Each Risk Factor Represents 3 Points: Age 75 years or older Other congenital or acquired thrombophilia - If yes, enter type in comment: No Thrombosis Risk Factor Assessment Total Risk Factor Score: 6 Thrombosis Risk Factor Assessment Level: High Risk Assessment and Plan Plan: -Hypercalcemia secondary to malignancy -Hypokalemia -Hypomagnesemia -Severe back pain secondary to metastatic disease from lung cancer. -Type 2 diabetes mellitus -Hypertension -COPD without any acute exacerbation Patient is being discharged back to retirement with hospice today.
--- NOTE | 2019-04-05 14:50 | P.DS ---
Providers Date of admission: 04/04/19 21:08 Attending physician: Luis Lockwood Primary care physician: Amrit Rosarioqvi [facility] Course: As mentioned in HPI Patient Condition at Discharge: Fair Plan - Discharge Summary Discharge Rx Participant: No New Discharge Prescriptions: Discontinued Mirabegron [Myrbetriq] 50 mg PO DAILY Fenofibrate Nanocrystallized [Tricor] 145 mg PO DAILY Cholecalciferol (Vitamin D3) [Vitamin D3] 2,000 unit PO DAILY Ciprofloxacin HCl [Cipro] 250 mg PO BID No Action Vortioxetine Hydrobromide [Trintellix] 20 mg PO DAILY buPROPion HCL [Wellbutrin SR] 200 mg PO BID Bisoprolol [Zebeta] 5 mg PO DAILY Albuterol Inhaler [Ventolin Hfa Inhaler] 2 puff INHALATION RT-Q6H PRN PRN Reason: Wheezing Etodolac [Lodine] 400 mg PO BID PRN #12 tablet PRN Reason: Pain HYDROcodone/APAP 5-325MG [[place] 5-325] 1 each PO Q6HR PRN #10 tab PRN Reason: Moderate Pain Polyethylene Glycol 3350 [Miralax] 17 gm PO DAILY PRN #15 packet PRN Reason: Constipation Insulin Glargine,Hum.rec.anlog [Basaglar Kwikpen U-100] 60 unit SQ DAILY@0900 Insulin Glargine,Hum.rec.anlog [Basaglar Kwikpen U-100] 50 unit SQ HS@2100 Discharge Medication List Vortioxetine Hydrobromide [Trintellix] 20 mg PO DAILY 09/14/18 [History] buPROPion HCL [Wellbutrin SR] 200 mg PO BID 09/14/18 [History] Bisoprolol [Zebeta] 5 mg PO DAILY 03/09/19 [History] Albuterol Inhaler [Ventolin Hfa Inhaler] 2 puff INHALATION RT-Q6H PRN 03/18/19 [History] Etodolac [Lodine] 400 mg PO BID PRN #12 tablet 03/22/19 [Rx] HYDROcodone/APAP 5-325MG [[place] 5-325] 1 each PO Q6HR PRN #10 tab 03/22/19 [Rx] Polyethylene Glycol 3350 [Miralax] 17 gm PO DAILY PRN #15 packet 03/22/19 [Rx] Insulin Glargine,Hum.rec.anlog [Basaglar Kwikpen U-100] 50 unit SQ HS@2100 04/04/19 [History] Insulin Glargine,Hum.rec.anlog [Basaglar Kwikpen U-100] 60 unit SQ DAILY@0900 04/04/19 [History] Follow up Appointment(s)/Referral(s): Amrit Laguerre MD [Primary Care Provider] - 3 Days Discharge Disposition: [facility] TO HOSPICE MED [facility]
== END 2019-04-05 16:50 | disposition hospice, inpatient (51) | DRG 641 ==
LOC: EC 19:32 → 3NMEDONC 21:08
PROVIDERS: ADMIT Hospitalist; ATTEND Hospitalist
DX: E83.52 Hypercalcemia (principal); C34.90 Malignant neoplasm of unspecified part of unspecified bronchus or lung; E11.9 Type 2 diabetes mellitus without complications; F32.9 Major depressive disorder, single episode, unspecified; E87.6 Hypokalemia; E83.42 Hypomagnesemia; M54.9 Dorsalgia, unspecified; G89.3 Neoplasm related pain (acute) (chronic); J44.9 Chronic obstructive pulmonary disease, unspecified; Z51.5 Encounter for palliative care; I10 Essential (primary) hypertension; Z88.8 Allergy status to other drugs, medicaments and biological substances; Z79.899 Other long term (current) drug therapy; Z91.040 Latex allergy status; Z90.710 Acquired absence of both cervix and uterus; Z98.890 Other specified postprocedural states; Z87.891 Personal history of nicotine dependence; Z82.49 Family history of ischemic heart disease and other diseases of the circulatory system
CPT/HCPCS: 36415; 80053; 82330; 83735; 84100; 85025; 96360; 96361; 99285